=== PATIENT | male | born 1935 | race Caucasian/White ===

== ENCOUNTER → 2016-06-15 | Outpatient (CLI) | payer MEDICARE, BC | LOC: OD 11:25 | PROVIDERS: ATTEND Internal Medicine Nephrology | DX: E87.5 Hyperkalemia (principal) | CPT/HCPCS: 36415; 84132 ==

== ENCOUNTER → 2016-07-21 | Outpatient (CLI) | payer MEDICARE, BC ==
[2016-07-21 13:44] LABS: ANION GAP 15 (5-19); BLOOD UREA NITROGEN 22 mg/dL (7-20); CALCIUM 9.4 mg/dL (8.4-10.2); CARBON DIOXIDE 29 mmol/L (22-30); CHLORIDE 105 mmol/L (98-107); CREATININE RESULT 1.91 mg/dL (0.52-1.25); GLUCOSE 130 mg/dL (75-110); MAGNESIUM 2.2 mg/dL (1.6-2.3); SODIUM 148.5 mmol/L (137-145)
== END ==
LOC: OD 12:13
PROVIDERS: ATTEND Internal Medicine Nephrology
DX: I12.9 Hypertensive chronic kidney disease with stage 1 through stage 4 chronic kidney disease, or unspecified chronic kidney disease (principal); N18.3 Chronic kidney disease, stage 3 (moderate); E87.5 Hyperkalemia
CPT/HCPCS: 36415; 80048; 83735

== ENCOUNTER → 2016-08-26 | Outpatient (CLI) | payer MEDICARE, BC ==
[2016-08-26 15:21] LABS: HEMATOCRIT 34.3 % (37.9-51.0); HEMOGLOBIN 11.1 g/dL (13.5-17.0); MEAN CORPUSCULAR HEMOGLOBIN 27.7 pg (27.0-33.4); MEAN CORPUSCULAR HGB CONC 32.3 g/dL (32.0-36.0); MEAN CORPUSCULAR VOLUME 86 fl (80-97); RED BLOOD COUNT 3.99 10^6/uL (4.35-5.55); RED CELL DISTRIBUTION WIDTH 16.1 % (11.5-14.0); WHITE BLOOD COUNT 6.7 10^3/uL (4.0-10.5)
[2016-08-26 15:21] LABS: APPEARANCE,URINE CLEAR; BILIRUBIN,URINE NEGATIVE (NEGATIVE); GLUCOSE, URINE NEGATIVE (NEGATIVE); KETONES,URINE NEGATIVE (NEGATIVE); LEUKOCYTE ESTERASE,URINE NEGATIVE (NEGATIVE); NITRITE,URINE NEGATIVE (NEGATIVE); PROTEIN,URINE 30 mg/dL (NEGATIVE); URINE SPECIFIC GRAVITY 1.015; UROBILINOGEN,URINE NEGATIVE mg/dL (<2.0)
[2016-08-26 15:35] LABS: ANION GAP 9 (5-19); BLOOD UREA NITROGEN 20 mg/dL (7-20); CALCIUM 8.9 mg/dL (8.4-10.2); CARBON DIOXIDE 30 mmol/L (22-30); CHLORIDE 105 mmol/L (98-107); CREATININE RESULT 1.67 mg/dL (0.52-1.25); GLUCOSE 105 mg/dL (75-110); MAGNESIUM 2.3 mg/dL (1.6-2.3); POTASSIUM 3.3 mmol/L (3.6-5.0); SODIUM 143.8 mmol/L (137-145)
== END ==
LOC: OD 14:18
PROVIDERS: ATTEND Internal Medicine Nephrology
DX: N18.3 Chronic kidney disease, stage 3 (moderate) (principal); E87.5 Hyperkalemia; D64.9 Anemia, unspecified; R31.9 Hematuria, unspecified
CPT/HCPCS: 36415; 80048; 81001; 82728; 83540; 83550; 83735; 85027

== ENCOUNTER → 2016-10-02 | Outpatient (CLI) | payer MEDICARE, BC ==
[2016-10-02 13:00] LABS: HEMATOCRIT 34.3 % (37.9-51.0); HEMOGLOBIN 10.9 g/dL (13.5-17.0); HGB HCT DIFFERENCE -1.6; MEAN CORPUSCULAR HEMOGLOBIN 27.1 pg (27.0-33.4); MEAN CORPUSCULAR HGB CONC 31.9 g/dL (32.0-36.0); MEAN CORPUSCULAR VOLUME 85 fl (80-97); RED BLOOD COUNT 4.03 10^6/uL (4.35-5.55); WHITE BLOOD COUNT 6.6 10^3/uL (4.0-10.5)
[2016-10-02 13:26] LABS: ANION GAP 12 (5-19); BLOOD UREA NITROGEN 21 mg/dL (7-20); CALCIUM 8.8 mg/dL (8.4-10.2); CARBON DIOXIDE 27 mmol/L (22-30); CHLORIDE 106 mmol/L (98-107); CREATININE RESULT 1.74 mg/dL (0.52-1.25); GLUCOSE 137 mg/dL (75-110); MAGNESIUM 2.2 mg/dL (1.6-2.3); POTASSIUM 3.9 mmol/L (3.6-5.0)
== END ==
LOC: OD 12:07
PROVIDERS: ATTEND Internal Medicine Nephrology
DX: I12.9 Hypertensive chronic kidney disease with stage 1 through stage 4 chronic kidney disease, or unspecified chronic kidney disease (principal); N18.3 Chronic kidney disease, stage 3 (moderate); E87.6 Hypokalemia
CPT/HCPCS: 36415; 80048; 83735; 85027

== ENCOUNTER → 2016-12-10 | Outpatient (CLI) | payer MEDICARE, BC ==
[2016-12-10 13:53] LABS: HEMATOCRIT 35.2 % (37.9-51.0); HEMOGLOBIN 11.3 g/dL (13.5-17.0); HGB HCT DIFFERENCE -1.3; MEAN CORPUSCULAR HEMOGLOBIN 27.4 pg (27.0-33.4); MEAN CORPUSCULAR HGB CONC 32.2 g/dL (32.0-36.0); MEAN CORPUSCULAR VOLUME 85 fl (80-97); RED BLOOD COUNT 4.14 10^6/uL (4.35-5.55); RED CELL DISTRIBUTION WIDTH 19.1 % (11.5-14.0); WHITE BLOOD COUNT 8.3 10^3/uL (4.0-10.5)
[2016-12-10 14:12] LABS: ANION GAP 14 (5-19); BLOOD UREA NITROGEN 22 mg/dL (7-20); CALCIUM 9.7 mg/dL (8.4-10.2); CARBON DIOXIDE 28 mmol/L (22-30); CHLORIDE 103 mmol/L (98-107); CREATININE RESULT 1.89 mg/dL (0.52-1.25); GLUCOSE 123 mg/dL (75-110); POTASSIUM 3.1 mmol/L (3.6-5.0); SODIUM 145.4 mmol/L (137-145)
== END ==
LOC: OD 12:30
PROVIDERS: ATTEND Internal Medicine Nephrology
DX: N18.3 Chronic kidney disease, stage 3 (moderate) (principal); D64.9 Anemia, unspecified; I50.9 Heart failure, unspecified
CPT/HCPCS: 36415; 80048; 82728; 83540; 83550; 85027

== ENCOUNTER 2017-11-10 21:24 | Inpatient (IN) | payer MEDICARE, BC ==
[2017-11-10] MEDS ORDERED: LEVOFLOXACIN 750 MG/D5W RTU 150 ML IV ONE (21:46)
--- NOTE | 2017-11-10 22:15 | ER Document Report ---
ED General - General Chief Complaint: Fall Stated Complaint: FALL Time Seen by Provider: 11/10/17 21:38 TRAVEL OUTSIDE OF THE [place] IN LAST 30 DAYS: No - HPI Notes: 82-year-old male presents by EMS after a fall at home. He lives at home with his with dementia. There is some report that he was trying to get from his bed to a chair when he slipped and fell. He does not remember all events surrounding this episode and is unsure if this was a syncopal event. He does not think he hit his head. It is unclear how long he was on the floor. Daughter states it may have been at least an hour. He was seen by his primary care physician 1 week ago and his Lasix was increased from 2 pills to 3 pills twice a day. 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 He has a history of atrial fibrillation, congestive heart failure and stents. He is on home oxygen and was found to have sats of 78% on room air when EMS found him. He is now 95% on his normal 4 L. Daughter concerned that may have a urinary tract infection. - Related Data Allergies/Adverse Reactions: No Known Allergies Allergy (Verified 11/10/17 21:51) Past Medical History - Social History Smoking Status: Never Smoker Chew tobacco use (# tins/day): No Frequency of alcohol use: None Drug Abuse: None Family History: Reviewed & Not Pertinent Patient has suicidal ideation: No Patient has homicidal ideation: No - Past Medical History Cardiac Medical History: Reports: Hx Atrial Fibrillation, Hx Congestive Heart Failure, Hx Coronary Artery Disease Renal/ Medical History: Denies: Hx Peritoneal Dialysis Past Surgical History: Reports: Hx Cardiac Surgery - stents about 7yrs ago Review of Systems - Review of Systems Notes: Constitutional: Negative for fever. Positive for fatigue HENT: Negative for sore throat. Eyes: Negative for visual changes. Cardiovascular: Negative for chest pain. Respiratory: Negative for shortness of breath. Gastrointestinal: Negative for abdominal pain, vomiting or diarrhea. Genitourinary: Negative for dysuria. Musculoskeletal: Negative for back pain. Skin: Negative for rash. Neurological: Negative for headaches, weakness or numbness. 10 point ROS negative except as marked above and in HPI. Physical Exam - Vital signs Vitals: Temp Pulse Resp BP Pulse Ox 100.0 F 79 22 H 133/64 H 98 11/10/17 21:35 11/10/17 21:35 11/10/17 21:35 11/10/17 21:35 11/10/17 21:35 - Notes Notes: PHYSICAL EXAMINATION: GENERAL: Well-appearing, well-nourished and in no acute distress. Frail HEAD: Atraumatic, normocephalic. No facial injuries. EYES: Pupils equal round and reactive to light, extraocular movements intact, conjunctiva are normal. ENT: nares patent, oropharynx clear without exudates. Moist mucous membranes. NECK: Normal range of motion, supple without lymphadenopathy. No neck tenderness LUNGS: Breath sounds clear to auscultation bilaterally and equal. No wheezes rales or rhonchi. HEART: Regular rate and rhythm, no chest wall tenderness. 4 out of 5 systolic murmur ABDOMEN: Soft, nontender, normoactive bowel sounds. No guarding, no rebound. No masses appreciated. EXTREMITIES: Normal range of motion, no pitting or edema. No cyanosis. NEUROLOGICAL: Cranial nerves grossly intact. Normal speech, normal gait. Normal sensory and motor exams. PSYCH: Normal mood, normal affect. SKIN: Warm, Dry, normal turgor, no rashes or lesions noted. Course - Re-evaluation Re-evalutation: 11/10/17 22:14 We will check EKG and labs as this is unclear if this was a syncopal event or simple fall. Will also evaluate urine. 11/10/17 23:59 Patient has slightly increased BUN and creatinine from baseline which is likely related to new increased dose of Lasix. He has mild leukocytosis. Urine pending. Patient requesting chest x-ray to evaluate for "fluid around my heart. " Chest x-ray and CT pending. Discussed with Dr. Pearce at shift change for follow-up of these tests. - Vital Signs Vital signs: Temp Pulse Resp BP Pulse Ox 100.0 F 73 24 H 150/58 H 94 11/10/17 21:48 11/10/17 21:48 11/10/17 23:18 11/10/17 23:18 11/10/17 23:18 - Laboratory Result Diagrams: 11/10/17 23:17 11/10/17 23:17 Laboratory results interpreted by me: 11/10/17 11/10/17 23:17 23:17 WBC 12.9 H RBC 3.69 L Hgb 10.2 L Hct 30.8 L RDW 18.5 H Plt Count 129 L Seg Neuts % (Manual) 84 H Band Neutrophils % 1 L Lymphocytes % (Manual) 8 L Abs Neuts (Manual) 11.0 H Potassium 3.2 L BUN 28 H Creatinine 2.10 H Est GFR ( Amer) 37 L Est GFR (Non-Af Amer) 30 L Glucose 131 H ALT 17 L - Transfer of Care Care transferred to following provider: norbert
[2017-11-10 23:31] LABS: HEMATOCRIT 30.8 % (37.9-51.0); HEMOGLOBIN 10.2 g/dL (13.5-17.0); MEAN CORPUSCULAR HEMOGLOBIN 27.6 pg (27.0-33.4); MEAN CORPUSCULAR VOLUME 84 fl (80-97); PLATELET COUNT 129 10^3/uL (150-450); RED BLOOD COUNT 3.69 10^6/uL (4.35-5.55); RED CELL DISTRIBUTION WIDTH 18.5 % (11.5-14.0); WHITE BLOOD COUNT 12.9 10^3/uL (4.0-10.5)
[2017-11-10 23:45] LABS: ABSOLUTE MONOCYTES # (MANUAL) 0.9 10^3/uL (0.1-1.4); ALANINE AMINOTRANSFERASE 17 U/L (21-72); ALBUMIN 3.5 g/dL (3.5-5.0); ALKALINE PHOSPHATASE 68 U/L (38-126); ANION GAP 13 (5-19); ASPARTATE AMINO TRANSFERASE 18 U/L (17-59); BAND NEUTROPHILS % (MANUAL) 1 % (3-5); BASOPHILS % (MANUAL) 0 % (0-2); BILIRUBIN,DIRECT 0.3 mg/dL (0.0-0.4); BILIRUBIN,TOTAL 0.9 mg/dL (0.2-1.3); BLOOD UREA NITROGEN 28 mg/dL (7-20); CALCIUM 9.1 mg/dL (8.4-10.2); CARBON DIOXIDE 30 mmol/L (22-30); CHLORIDE 101 mmol/L (98-107); CREATINE KINASE 88 U/L (55-170); EOSINOPHILS % (MANUAL) 0 % (0-6); GLUCOSE 131 mg/dL (75-110); LYMPHOCYTES % (MANUAL) 8 % (13-45); MONOCYTES % (MANUAL) 7 % (3-13); POTASSIUM 3.2 mmol/L (3.6-5.0); SEGMENTED NEUTROPHILS % (MAN) 84 % (42-78); TOTAL CELLS COUNTED 100; TOTAL PROTEIN 6.7 g/dL (6.3-8.2)
[2017-11-10 23:48] LABS: ANISOCYTOSIS 2+; HYPOCHROMASIA 1+; OVALOCYTES 2+; POIKILOCYTOSIS 1+; SCHISTOCYTES SLIGHT; TARGET CELLS SLIGHT
[2017-11-10 23:49] LABS: PLATELET COMMENT DECREASED
[2017-11-10 23:56] LABS: APPEARANCE,URINE CLEAR; BILIRUBIN,URINE NEGATIVE (NEGATIVE); COLOR,URINE YELLOW; GLUCOSE, URINE NEGATIVE (NEGATIVE); KETONES,URINE NEGATIVE (NEGATIVE); LEUKOCYTE ESTERASE,URINE NEGATIVE (NEGATIVE); NITRITE,URINE NEGATIVE (NEGATIVE); PROTEIN,URINE 30 mg/dL (NEGATIVE); URINE SPECIFIC GRAVITY 1.011; UROBILINOGEN,URINE NEGATIVE mg/dL (<2.0)
[2017-11-11] MEDS ORDERED: ACETAMINOPHEN 325 MG TABLET PO ONE
--- NOTE | 2017-11-11 01:28 | RADIOLOGY REPORT (SQ) ---
EXAM DESCRIPTION: CT HEAD WITHOUT IV CONTRAST COMPLETED DATE/TME: 11/10/2017 22:10 CLINICAL HISTORY: 82 years, Male, fall COMPARISON: 12/15/2010 TECHNIQUE: Axial CT images of the brain were obtained without contrast. Sagittal and coronal reformats were performed. DLP 1111 Images stored on PACS. All CT scanners at this facility use dose modulation, iterative reconstruction, and/or weight based dosing when appropriate to reduce radiation dose to as low as reasonably achievable (ALARA). [facility]: Dose Right [facility]: CareDose [facility]: Dose Right [facility]: Teradose 4D [facility]: [employer] LIMITATIONS: None. FINDINGS: There is no acute infarct, hemorrhage, mass, edema, hydrocephalus, or extra-axial fluid collection. There is diffuse cerebral atrophy with mild to moderate periventricular and deep white matter chronic microvascular changes. Fluid is noted within the bilateral mastoid air cells. The paranasal sinuses are clear. There is no acute fracture. IMPRESSION: No acute intracranial abnormality. Bilateral mastoid effusions. TECHNICAL DOCUMENTATION: Quality ID # 436: Final reports with documentation of one or more dose reduction techniques (e.g., Automated exposure control, adjustment of the mA and/or kV according to patient size, use of iterative reconstruction technique) 2010 [employer]- All Rights Reserved
--- NOTE | 2017-11-11 02:08 | RADIOLOGY REPORT (SQ) ---
Chest 2 view on 11/11/2017 at 1:58 AM CLINICAL INDICATION: Cough COMPARISON: 11/12/2014 FINDINGS: Cardiomegaly is noted. Vascular calcification is noted in the aorta. Mild increased interstitial opacities may be chronic in nature versus mild edema. Hilar and mediastinal contours are within normal limits. No acute bony abnormality is noted. Old right rib fractures are noted. IMPRESSION: Cardiomegaly with mild increased interstitial opacities that may be chronic in nature versus mild edema.
[2017-11-11] MEDS ORDERED: POTASSIUM CHLORIDE 10 MEQ CAPSULE.ER PO ONE (02:52)
[2017-11-11] MEDS ORDERED: LEVOFLOXACIN 750 MG/D5W RTU 750 MG/150 ML RTUPB IV ONE (03:00)
[2017-11-11] MEDS ORDERED: ACETAMINOPHEN 325 MG TABLET PO PRN (03:03)
[2017-11-11] MEDS ORDERED: IPRATROPIUM/ALBUTEROL 0.5-2.5 MG/3 ML AMPUL NEB PRN (03:03)
[2017-11-11] MEDS ORDERED: NORMAL SALINE 1000 ML 1,000 ML IV PRN (03:06)
[2017-11-11] MEDS ORDERED: AZITHROMYCIN INJ 500 MG VIAL IV PRN (03:14)
[2017-11-11] MEDS ORDERED: CEFTRIAXONE INJ 1000 MG VIAL IV PRN (03:14)
[2017-11-11] MEDS ORDERED: AZITHROMYCIN 500 MG in DEXTROSE 5%-WATER 250 ML IV SCH (04:00)
[2017-11-11] MEDS ORDERED: CEFTRIAXONE 1 GM/D5W RTU 1 GM/50 ML RTUPB IV SCH (04:00)
[2017-11-11] MEDS ORDERED: CHLORPHENIRAMINE MALEATE 4 MG TABLET PO ONE (04:05)
[2017-11-11] MEDS: HEPARIN SOD (PORCINE) 5,000 UNIT/ML 1 ML SYRINGE SUBCUT SCH ×2 (05:05→14:51)
[2017-11-11] MEDS ORDERED: CHLORPHENIRAMINE MALEATE 4 MG TABLET ONE (05:24)
--- NOTE | 2017-11-11 06:58 | PDOC H&P ---
History of Present Illness Admission Date/PCP: 11/11/17 03:21 Patient complains of: Fever and cough History of Present Illness: ESTELA CRUZ is a 82 year old male with a past medical history of congestive heart failure, oxygen dependence, CKD 3 and hypertension. Patient presents with 48 hours of shortness of breath and cough preceded by several days of rhinorrhea. In the emergency room is found to have a fever of 101.0 and leukocytosis. He started on empiric antibiotics and referred to the hospitalist for admission. Patient denies chest pain nausea vomiting diarrhea. He denies recent antibiotic use. Past Medical History Cardiac Medical History: Reports: Atrial Fibrillation, Congestive Heart Failure , Coronary Artery Disease Pulmonary Medical History: Reports: Bronchitis Social History Information Source: Patient Lives with: Alone Smoking Status: Never Smoker Frequency of Alcohol Use: None Drugs: None - Advance Directive Resuscitation Status: Full Code Family History Family History: COPD Parental Family History Reviewed: Yes Children Family History Reviewed: Yes Sibling(s) Family History Reviewed.: Yes Medication/Allergy Allergies/Adverse Reactions: No Known Allergies Allergy (Verified 11/10/17 21:51) Review of Systems Constitutional: ABSENT: chills, fever(s), headache(s), weight gain, weight loss Eyes: ABSENT: visual disturbances Ears: ABSENT: hearing changes Cardiovascular: ABSENT: chest pain, dyspnea on exertion, edema, orthropnea, palpitations Respiratory: ABSENT: cough, hemoptysis Gastrointestinal: ABSENT: abdominal pain, constipation, diarrhea, hematemesis, hematochezia, nausea, vomiting Genitourinary: ABSENT: dysuria, hematuria Musculoskeletal: ABSENT: joint swelling Integumentary: ABSENT: rash, wounds Neurological: ABSENT: abnormal gait, abnormal speech, confusion, dizziness, focal weakness, syncope Psychiatric: ABSENT: anxiety, depression, homidical ideation, suicidal ideation Endocrine: ABSENT: cold intolerance, heat intolerance, polydipsia, polyuria Hematologic/Lymphatic: ABSENT: easy bleeding, easy bruising Physical Exam Vital Signs: Temp Pulse Resp BP Pulse Ox 97.5 F 73 20 140/57 H 97 11/11/17 05:01 11/10/17 21:48 11/11/17 05:01 11/11/17 05:01 11/11/17 05:01 Intake & Output 11/09/17 11/10/17 11/11/17 11:59 11:59 11:59 Intake Total 150 Balance 150 General appearance: PRESENT: cooperative, mild distress. ABSENT: disheveled, hard of hearing Head exam: PRESENT: atraumatic, normocephalic Eye exam: PRESENT: conjunctiva pink, EOMI, PERRLA. ABSENT: scleral icterus Ear exam: PRESENT: normal external ear exam Mouth exam: PRESENT: moist, tongue midline Neck exam: ABSENT: carotid bruit, JVD, lymphadenopathy, thyromegaly Respiratory exam: PRESENT: accessory muscle use, crackles, rales, rhonchi, symmetrical, tachypnea Cardiovascular exam: PRESENT: RRR. ABSENT: diastolic murmur, rubs, systolic murmur Pulses: PRESENT: normal dorsalis pedis pul Vascular exam: PRESENT: normal capillary refill GI/Abdominal exam: PRESENT: normal bowel sounds, soft. ABSENT: distended, guarding, mass, organolmegaly, rebound, tenderness Rectal exam: PRESENT: deferred Extremities exam: PRESENT: full ROM. ABSENT: calf tenderness, clubbing, pedal edema Neurological exam: PRESENT: alert, awake, oriented to person, oriented to place , oriented to time, oriented to situation, CN II-XII grossly intact. ABSENT: motor sensory deficit Psychiatric exam: PRESENT: appropriate affect, normal mood. ABSENT: homicidal ideation, suicidal ideation Skin exam: PRESENT: dry, intact, warm. ABSENT: cyanosis, rash Results Impressions: Head CT 11/10/17 22:10 IMPRESSION: No acute intracranial abnormality. Bilateral mastoid effusions. TECHNICAL DOCUMENTATION: Quality ID # 436: Final reports with documentation of one or more dose reduction techniques (e.g., Automated exposure control, adjustment of the mA and/or kV according to patient size, use of iterative reconstruction technique) 2010 [employer]- All Rights Reserved Chest X-Ray 11/10/17 23:58 IMPRESSION: Cardiomegaly with mild increased interstitial opacities that may be chronic in nature versus mild edema. Assessment & Plan - Diagnosis (1) Pneumonia Qualifiers: Pneumonia type: due to unspecified organism Laterality: unspecified laterality Lung location: unspecified part of lung Qualified Code(s): J18.9 - Pneumonia, unspecified organism Is this a current diagnosis for this admission?: Yes Plan: Secondary to sinusitis, pneumonia care set. Follow-up blood culture and CBC (2) Acute sinusitis Is this a current diagnosis for this admission?: Yes Plan: Flonase, empiric antibiotic, follow-up CBC consider CT head (3) Congestive heart failure Is this a current diagnosis for this admission?: Yes Plan: Appears compensated, possibly dry, hold diuretic (4) Chronic kidney disease Is this a current diagnosis for this admission?: Yes Plan: Somewhat prerenal versus baseline. Avoid nephrotoxic meds and doses reevaluate chemistry - Time Time Spent: 50 to 70 Minutes - Inpatient Certification Medical Necessity: Need Close Monitoring Due to Risk of Patient Decompensation
[2017-11-11 07:36] LABS: ANION GAP 13 (5-19); BLOOD UREA NITROGEN 25 mg/dL (7-20); CALCIUM 8.6 mg/dL (8.4-10.2); CARBON DIOXIDE 27 mmol/L (22-30); CHLORIDE 105 mmol/L (98-107); GLUCOSE 102 mg/dL (75-110); POTASSIUM 3.5 mmol/L (3.6-5.0); SODIUM 145.1 mmol/L (137-145)
--- NOTE | 2017-11-11 07:41 | EKG REPORT ---
SEVERITY:- ABNORMAL ECG - ATRIAL FIBRILLATION RIGHT BUNDLE BRANCH BLOCK INFERIOR INFARCT, AGE INDETERMINATE : Confirmed by: Alex Grider MD 11-Nov-2017 07:40:49
[2017-11-11] MEDS: IPRATROPIUM/ALBUTEROL 0.5-2.5 MG/3 ML AMPUL NEB SCH ×3 (08:15→19:47)
[2017-11-11] MEDS: FLUTICASONE NASAL SPRAY 50 MCG/SPRY 120 SPRAY/16 GM NASL SCH ×2 (12:44→21:29)
[2017-11-11] MEDS: AZITHROMYCIN 500 MG in DEXTROSE 5%-WATER 250 ML IV SCH (17:48)
--- NOTE | 2017-11-11 20:16 | Progress Note ---
Provider Note Provider Note: Admitted overnight. Doing better already. Breathing better. Has history of enlarged prostate and was straight cathed for UA in the ED. Had hematuria afterwards. However urine is clearing out. No problem urinating. UA before the bleeding started negative, had only small amount of blood. Will continue to monitor patient. We will also continue his treatment. Follow-up culture results. Follow-up CBC and Chem-7 in a.m.
[2017-11-11] MEDS: CEFTRIAXONE SODIUM 1,000 MG in NORMAL SALINE 50 ML IV SCH (20:46)
[2017-11-12] MEDS: IPRATROPIUM/ALBUTEROL 0.5-2.5 MG/3 ML AMPUL NEB SCH ×4 (02:12→20:27)
[2017-11-12] MEDS ORDERED: LEVOFLOXACIN 750 MG/D5W RTU 750 MG/150 ML RTUPB IV SCH (03:00)
[2017-11-12 05:13] LABS: HEMATOCRIT 29.3 % (37.9-51.0); HEMOGLOBIN 9.6 g/dL (13.5-17.0); MEAN CORPUSCULAR HEMOGLOBIN 27.5 pg (27.0-33.4); MEAN CORPUSCULAR HGB CONC 32.8 g/dL (32.0-36.0); MEAN CORPUSCULAR VOLUME 84 fl (80-97); RED BLOOD COUNT 3.48 10^6/uL (4.35-5.55); RED CELL DISTRIBUTION WIDTH 18.8 % (11.5-14.0); WHITE BLOOD COUNT 6.8 10^3/uL (4.0-10.5)
[2017-11-12 05:32] LABS: ANION GAP 12 (5-19); BLOOD UREA NITROGEN 29 mg/dL (7-20); CALCIUM 8.4 mg/dL (8.4-10.2); CARBON DIOXIDE 26 mmol/L (22-30); CHLORIDE 108 mmol/L (98-107); GLUCOSE 91 mg/dL (75-110); POTASSIUM 3.2 mmol/L (3.6-5.0); SODIUM 145.9 mmol/L (137-145)
[2017-11-12 05:51] LABS: PLATELET COUNT 88 10^3/uL (150-450)
[2017-11-12] MEDS: FLUTICASONE NASAL SPRAY 50 MCG/SPRY 120 SPRAY/16 GM NASL SCH ×2 (11:05→22:26)
[2017-11-12] MEDS: POTASSIUM CHLORIDE 10 MEQ CAPSULE.ER PO SCH ×2 (11:06→22:27)
[2017-11-12] MEDS: FINASTERIDE 5 MG TABLET PO SCH (11:06)
[2017-11-12] MEDS: METOPROLOL SUCCINATE 50 MG TAB.SR.24H PO SCH ×2 (11:06→22:27)
[2017-11-12] MEDS: FUROSEMIDE 40 MG TABLET PO SCH ×2 (11:06→18:47)
[2017-11-12] MEDS: DILTIAZEM HCL 240 MG CAPSULE.CR PO SCH (11:15)
[2017-11-12] MEDS ORDERED: POTASSIUM CHLORIDE 10 MEQ CAPSULE.ER PO ONE (14:10)
--- NOTE | 2017-11-12 14:10 | PDOC PROGRESS REPORT ---
Subjective Progress Note for:: 11/12/17 Subjective:: 82-year-old male with history of CHF, O2 dependent, presented with shortness of breath, cough, rhinorrhea, fever of 101. Patient was admitted for possible pneumonia and acute sinusitis. Of note is that the patient had UA done with straight cath. He has history of BPH. He had episode of hematuria afterwards but that has improved. Denies flank pain. UA prior to the possible injury only with minimal blood. Coumadin which he takes for A. fib is currently on hold. He is doing better today with regards to his cough and shortness of breath. Denies chest pain or palpitations. No more fever or chills. Reason For Visit: CHF, PNEUMONIA, ORTHOSTASIS Physical Exam Vital Signs: Temp Pulse Resp BP Pulse Ox 98.4 F 105 H 16 156/64 H 90 L 11/12/17 11:03 11/12/17 13:37 11/12/17 13:37 11/12/17 11:03 11/12/17 11:03 Intake & Output 11/11/17 11/12/17 11/13/17 06:59 06:59 06:59 Intake Total 150 1716 Output Total 425 Balance 150 1291 Weight 79.4 kg GENERAL: Well-developed, no acute distress HEENT: Normocephalic/atraumatic NECK supple, no JVD CARDIOVASCULAR: Irregularly irregular, normal S1-S2 LUNGS: CTA bilaterally ABDOMEN: Soft, NT, NL bowel sounds EXTREMITIES: No edema, clubbing, cyanosis NEUROLOGICAL: Alert, oriented x 3, nonfocal Results Laboratory Results: 11/12/17 04:13 11/12/17 04:13 11/12/17 11/12/17 04:13 04:13 WBC 6.8 RBC 3.48 L Hgb 9.6 L Hct 29.3 L MCV 84 MCH 27.5 MCHC 32.8 RDW 18.8 H Plt Count 88 L Sodium 145.9 H Potassium 3.2 L Chloride 108 H Carbon Dioxide 26 Anion Gap 12 BUN 29 H Creatinine 1.88 H Est GFR ( Amer) 42 L Est GFR (Non-Af Amer) 34 L Glucose 91 Calcium 8.4 Impressions: Head CT 11/10/17 22:10 IMPRESSION: No acute intracranial abnormality. Bilateral mastoid effusions. TECHNICAL DOCUMENTATION: Quality ID # 436: Final reports with documentation of one or more dose reduction techniques (e.g., Automated exposure control, adjustment of the mA and/or kV according to patient size, use of iterative reconstruction technique) 2010 [employer]- All Rights Reserved Chest X-Ray 11/10/17 23:58 IMPRESSION: Cardiomegaly with mild increased interstitial opacities that may be chronic in nature versus mild edema. Assessment & Plan - Diagnosis (1) Pneumonia Qualifiers: Pneumonia type: due to unspecified organism Laterality: unspecified laterality Lung location: unspecified part of lung Qualified Code(s): J18.9 - Pneumonia, unspecified organism Is this a current diagnosis for this admission?: Yes Plan: This is suspected. Blood cultures negative 24 hours. Continue Rocephin and Zithromax for now. Patient currently with no productive sputum. Continue nebulizers as needed. (2) Acute sinusitis Is this a current diagnosis for this admission?: Yes Plan: Flonase, empiric antibiotic. Continue to follow blood culture results. (3) Congestive heart failure Is this a current diagnosis for this admission?: Yes Plan: Appears compensated. Resume home Lasix. (4) Chronic kidney disease, stage 3 Is this a current diagnosis for this admission?: Yes Plan: Stable (5) Hematuria Is this a current diagnosis for this admission?: Yes Plan: Likely secondary to trauma from straight cath performed for UA in the setting of BPH. Improvement patient making urine. H&H stable. Please continue to monitor for hematuria and H&H. Coumadin currently on hold, which he takes for A. fib. Consider restarting if no more hematuria by a.m. Consider nephrology consult if worsening symptoms. (6) Hypokalemia Is this a current diagnosis for this admission?: Yes Plan: Potassium is 3.2 today. We will replete with KCl 40 M EQ p.o. 1 and follow-up Chem-7 in a.m.
[2017-11-12] MEDS: AZITHROMYCIN 500 MG in DEXTROSE 5%-WATER 250 ML IV SCH (18:47)
[2017-11-12] MEDS: CEFTRIAXONE SODIUM 1,000 MG in NORMAL SALINE 50 ML IV SCH (20:33)
[2017-11-12] MEDS ORDERED: LOVASTATIN 20 MG PO SCH (22:00)
[2017-11-12] MEDS: ATORVASTATIN CALCIUM 10 MG TABLET PO SCH (22:26)
[2017-11-13] MEDS: FUROSEMIDE 40 MG TABLET PO SCH ×3 (01:05→17:29)
[2017-11-13] MEDS: IPRATROPIUM/ALBUTEROL 0.5-2.5 MG/3 ML AMPUL NEB SCH ×4 (02:37→20:22)
[2017-11-13 05:47] LABS: HEMATOCRIT 30.1 % (37.9-51.0); HEMOGLOBIN 9.8 g/dL (13.5-17.0); MEAN CORPUSCULAR HEMOGLOBIN 27.7 pg (27.0-33.4); MEAN CORPUSCULAR HGB CONC 32.6 g/dL (32.0-36.0); MEAN CORPUSCULAR VOLUME 85 fl (80-97); PLATELET COUNT 113 10^3/uL (150-450); RED BLOOD COUNT 3.54 10^6/uL (4.35-5.55); WHITE BLOOD COUNT 7.6 10^3/uL (4.0-10.5)
[2017-11-13 06:07] LABS: ANION GAP 14 (5-19); BLOOD UREA NITROGEN 29 mg/dL (7-20); CALCIUM 8.5 mg/dL (8.4-10.2); CARBON DIOXIDE 24 mmol/L (22-30); CHLORIDE 108 mmol/L (98-107); GLUCOSE 95 mg/dL (75-110); POTASSIUM 3.8 mmol/L (3.6-5.0); SODIUM 145.7 mmol/L (137-145)
[2017-11-13] MEDS: FINASTERIDE 5 MG TABLET PO SCH (10:14)
[2017-11-13] MEDS: DILTIAZEM HCL 240 MG CAPSULE.CR PO SCH (10:14)
[2017-11-13] MEDS: FLUTICASONE NASAL SPRAY 50 MCG/SPRY 120 SPRAY/16 GM NASL SCH ×2 (10:14→22:33)
[2017-11-13] MEDS: POTASSIUM CHLORIDE 10 MEQ CAPSULE.ER PO SCH ×2 (10:15→22:35)
[2017-11-13] MEDS: METOPROLOL SUCCINATE 50 MG TAB.SR.24H PO SCH ×2 (10:15→22:35)
[2017-11-13] MEDS: AZITHROMYCIN 500 MG in DEXTROSE 5%-WATER 250 ML IV SCH (17:29)
--- NOTE | 2017-11-13 18:00 | PDOC PROGRESS REPORT ---
Subjective Progress Note for:: 11/13/17 Subjective:: Patient admitted with difficulty breathing and shortness of breath and fever. It appears that he was thought to be septic and started on IV antibiotics. He was noted to have hematuria which was thought to be due to catheterization. He is material appears to have resolved as of today. Reason For Visit: CHF, PNEUMONIA, ORTHOSTASIS Physical Exam Vital Signs: Temp Pulse Resp BP Pulse Ox 98.4 F 80 20 145/60 H 94 11/13/17 16:49 11/13/17 16:49 11/13/17 16:49 11/13/17 16:49 11/13/17 16:49 Intake & Output 11/12/17 11/13/17 11/14/17 06:59 06:59 06:59 Intake Total 1716 1366 947 Output Total 425 1460 475 Balance 1291 -94 472 Weight 79.4 kg 80.8 kg General appearance: PRESENT: no acute distress, well-developed, well-nourished Head exam: PRESENT: atraumatic, normocephalic Eye exam: PRESENT: conjunctiva pink, EOMI, PERRLA. ABSENT: scleral icterus Ear exam: PRESENT: normal external ear exam Mouth exam: PRESENT: moist, tongue midline Neck exam: ABSENT: carotid bruit, JVD, lymphadenopathy, thyromegaly Respiratory exam: PRESENT: clear to auscultation nigel. ABSENT: rales, rhonchi, wheezes Cardiovascular exam: PRESENT: RRR. ABSENT: diastolic murmur, rubs, systolic murmur Pulses: PRESENT: normal dorsalis pedis pul Vascular exam: PRESENT: normal capillary refill GI/Abdominal exam: PRESENT: normal bowel sounds, soft. ABSENT: distended, guarding, mass, organolmegaly, rebound, tenderness Rectal exam: PRESENT: deferred Extremities exam: PRESENT: full ROM. ABSENT: calf tenderness, clubbing, pedal edema Neurological exam: PRESENT: alert, awake, oriented to person, oriented to place , oriented to time, oriented to situation, CN II-XII grossly intact. ABSENT: motor sensory deficit Psychiatric exam: PRESENT: appropriate affect, normal mood. ABSENT: homicidal ideation, suicidal ideation Skin exam: PRESENT: dry, intact, warm. ABSENT: cyanosis, rash Results Laboratory Results: 11/13/17 05:06 11/13/17 05:06 11/13/17 11/13/17 05:06 05:06 WBC 7.6 RBC 3.54 L Hgb 9.8 L Hct 30.1 L MCV 85 MCH 27.7 MCHC 32.6 RDW 19.0 H Plt Count 113 L Sodium 145.7 H Potassium 3.8 Chloride 108 H Carbon Dioxide 24 Anion Gap 14 BUN 29 H Creatinine 1.76 H Est GFR ( Amer) 45 L Est GFR (Non-Af Amer) 37 L Glucose 95 Calcium 8.5 Impressions: Head CT 11/10/17 22:10 IMPRESSION: No acute intracranial abnormality. Bilateral mastoid effusions. TECHNICAL DOCUMENTATION: Quality ID # 436: Final reports with documentation of one or more dose reduction techniques (e.g., Automated exposure control, adjustment of the mA and/or kV according to patient size, use of iterative reconstruction technique) 2010 [employer]- All Rights Reserved Chest X-Ray 11/10/17 23:58 IMPRESSION: Cardiomegaly with mild increased interstitial opacities that may be chronic in nature versus mild edema. Assessment & Plan - Time Time Spent with patient: 15-24 minutes Medications reviewed and adjusted accordingly: Yes Anticipated discharge: Home Within: within 48 hours - Inpatient Certification Based on my medical assessment, after consideration of the patient's comorbidities, presenting symptoms, or acuity I expect that the services needed warrant INPATIENT care.: Yes Medical Necessity: Significant Comorbidiites Make Outpatient Treatment Too Risky , Need for IV Antibiotics - Plan Summary Plan Summary: 1. Pneumonia organism unknown. Patient is on Rocephin and Zithromax and he apparently is clinically improved. We will continue this for now 2. Acute sinusitis resolved 3. Hematuria patient is on Coumadin. Will check PT and INR and restart depending on levels 4. Chronic kidney disease stage III stable 5. Chronic compensated congestive heart failure. Continue Lasix 6. Hypokalemia possibly secondary to Lasix and kaliuresis. We will replace
[2017-11-13] MEDS: CEFTRIAXONE SODIUM 1,000 MG in NORMAL SALINE 50 ML IV SCH (20:44)
[2017-11-13] MEDS: ATORVASTATIN CALCIUM 10 MG TABLET PO SCH (22:34)
[2017-11-14] MEDS: IPRATROPIUM/ALBUTEROL 0.5-2.5 MG/3 ML AMPUL NEB SCH ×4 (02:23→21:06)
[2017-11-14] MEDS: FUROSEMIDE 40 MG TABLET PO SCH ×3 (03:13→18:17)
[2017-11-14 06:35] LABS: HEMATOCRIT 28.6 % (37.9-51.0); HEMOGLOBIN 9.6 g/dL (13.5-17.0); MEAN CORPUSCULAR HEMOGLOBIN 27.8 pg (27.0-33.4); MEAN CORPUSCULAR HGB CONC 33.6 g/dL (32.0-36.0); MEAN CORPUSCULAR VOLUME 83 fl (80-97); PLATELET COUNT 120 10^3/uL (150-450); RED BLOOD COUNT 3.46 10^6/uL (4.35-5.55); RED CELL DISTRIBUTION WIDTH 18.9 % (11.5-14.0); WHITE BLOOD COUNT 6.3 10^3/uL (4.0-10.5)
[2017-11-14 07:28] LABS: INTERNATIONAL RATION (INR) 1.29; PROTHROMBIN TIME 16.7 SEC (11.4-15.4)
[2017-11-14 07:39] LABS: ANION GAP 11 (5-19); BLOOD UREA NITROGEN 34 mg/dL (7-20); CALCIUM 8.7 mg/dL (8.4-10.2); CARBON DIOXIDE 28 mmol/L (22-30); CHLORIDE 106 mmol/L (98-107); GLUCOSE 97 mg/dL (75-110); POTASSIUM 3.4 mmol/L (3.6-5.0); SODIUM 145.4 mmol/L (137-145)
[2017-11-14] MEDS ORDERED: (PENDING PHARMACY ID) (Warfarin Sodium 6 MG) PO SCH (10:00)
[2017-11-14] MEDS: METOPROLOL SUCCINATE 50 MG TAB.SR.24H PO SCH ×2 (12:22→22:34)
[2017-11-14] MEDS: POTASSIUM CHLORIDE 10 MEQ CAPSULE.ER PO SCH ×3 (12:22→22:35)
[2017-11-14] MEDS: DILTIAZEM HCL 240 MG CAPSULE.CR PO SCH (12:26)
[2017-11-14] MEDS: FINASTERIDE 5 MG TABLET PO SCH (12:27)
[2017-11-14] MEDS: FLUTICASONE NASAL SPRAY 50 MCG/SPRY 120 SPRAY/16 GM NASL SCH ×2 (12:27→22:34)
--- NOTE | 2017-11-14 14:25 | PDOC PROGRESS REPORT ---
Subjective Progress Note for:: 11/14/17 Subjective:: Patient admitted with difficulty breathing and shortness of breath and fever. It appears that he was thought to be septic and started on IV antibiotics. He was noted to have hematuria which was thought to be due to catheterization. However he is on Coumadin Reason For Visit: CHF, PNEUMONIA, ORTHOSTASIS Physical Exam Vital Signs: Temp Pulse Resp BP Pulse Ox 97.4 F 78 13 126/62 H 96 11/14/17 11:09 11/14/17 11:09 11/14/17 11:09 11/14/17 11:09 11/14/17 11:09 Intake & Output 11/13/17 11/14/17 11/15/17 06:59 06:59 06:59 Intake Total 1366 1247 Output Total 1460 475 Balance -94 772 Weight 80.8 kg 79.2 kg General appearance: PRESENT: no acute distress, well-developed, well-nourished Head exam: PRESENT: atraumatic, normocephalic Neck exam: ABSENT: carotid bruit, JVD, lymphadenopathy, thyromegaly Respiratory exam: PRESENT: decreased breath sounds, unlabored. ABSENT: rales, rhonchi, tachypnea, wheezes Cardiovascular exam: PRESENT: RRR, +S1, +S2, systolic murmur. ABSENT: diastolic murmur, rubs GI/Abdominal exam: PRESENT: normal bowel sounds, soft. ABSENT: distended, guarding, mass, organolmegaly, rebound, tenderness Rectal exam: PRESENT: deferred Neurological exam: PRESENT: alert, awake, oriented to person, oriented to place , oriented to time, oriented to situation, CN II-XII grossly intact, other Psychiatric exam: PRESENT: appropriate affect Results Laboratory Results: 11/14/17 06:15 11/14/17 06:15 11/14/17 11/14/17 06:15 06:15 WBC 6.3 RBC 3.46 L Hgb 9.6 L Hct 28.6 L MCV 83 MCH 27.8 MCHC 33.6 RDW 18.9 H Plt Count 120 L Sodium 145.4 H Potassium 3.4 L Chloride 106 Carbon Dioxide 28 Anion Gap 11 BUN 34 H Creatinine 1.94 H Est GFR ( Amer) 40 L Est GFR (Non-Af Amer) 33 L Glucose 97 Calcium 8.7 Impressions: Head CT 08/15/18 22:10 IMPRESSION: No acute intracranial abnormality. Bilateral mastoid effusions. TECHNICAL DOCUMENTATION: Quality ID # 436: Final reports with documentation of one or more dose reduction techniques (e.g., Automated exposure control, adjustment of the mA and/or kV according to patient size, use of iterative reconstruction technique) 2010 [employer]- All Rights Reserved Chest X-Ray 11/10/17 23:58 IMPRESSION: Cardiomegaly with mild increased interstitial opacities that may be chronic in nature versus mild edema. Assessment & Plan - Time Time Spent with patient: 15-24 minutes Medications reviewed and adjusted accordingly: Yes Anticipated discharge: Acute Rehab Within: within 72 hours - Inpatient Certification Based on my medical assessment, after consideration of the patient's comorbidities, presenting symptoms, or acuity I expect that the services needed warrant INPATIENT care.: Yes Medical Necessity: Need Close Monitoring Due to Risk of Patient Decompensation, Need for IV Antibiotics - Plan Summary Plan Summary: 1. Pneumonia organism unknown. Patient is on Rocephin and Zithromax and he Continues to improve.. We will continue this for now 2. Acute sinusitis resolved 3. Hematuria Resolved. Will restart Coumadin as INR is subtherapeutic. Will not give any hepa 4. Chronic kidney disease stage III stable 5. Chronic compensated congestive heart failure. Continue Lasix 6. Hypokalemia possibly secondary to Lasix and kaliuresis. 7.Generalized debility and weakness plan is for rehab in [place] once stable
[2017-11-14 16:06] LABS: ANION GAP 13 (5-19); BLOOD UREA NITROGEN 34 mg/dL (7-20); CALCIUM 8.8 mg/dL (8.4-10.2); CARBON DIOXIDE 28 mmol/L (22-30); CHLORIDE 105 mmol/L (98-107); GLUCOSE 114 mg/dL (75-110); POTASSIUM 3.8 mmol/L (3.6-5.0); SODIUM 145.7 mmol/L (137-145)
[2017-11-14] MEDS: AZITHROMYCIN 500 MG in DEXTROSE 5%-WATER 250 ML IV SCH (18:11)
[2017-11-14] MEDS ORDERED: WARFARIN SODIUM 3 MG TABLET PO SCH (22:00)
[2017-11-14] MEDS: CEFTRIAXONE SODIUM 1,000 MG in NORMAL SALINE 50 ML IV SCH (22:34)
[2017-11-14] MEDS: ATORVASTATIN CALCIUM 10 MG TABLET PO SCH (22:36)
[2017-11-15] MEDS: IPRATROPIUM/ALBUTEROL 0.5-2.5 MG/3 ML AMPUL NEB SCH ×4 (02:48→19:38)
[2017-11-15 05:45] LABS: INTERNATIONAL RATION (INR) 1.25; PROTHROMBIN TIME 16.3 SEC (11.4-15.4)
[2017-11-15] MEDS: FUROSEMIDE 40 MG TABLET PO SCH ×2 (10:19→18:40)
[2017-11-15] MEDS: FLUTICASONE NASAL SPRAY 50 MCG/SPRY 120 SPRAY/16 GM NASL SCH ×2 (10:19→23:03)
[2017-11-15] MEDS: DILTIAZEM HCL 240 MG CAPSULE.CR PO SCH (10:20)
[2017-11-15] MEDS: FINASTERIDE 5 MG TABLET PO SCH (10:23)
[2017-11-15] MEDS: METOPROLOL SUCCINATE 50 MG TAB.SR.24H PO SCH ×2 (10:23→23:03)
[2017-11-15] MEDS: POTASSIUM CHLORIDE 10 MEQ CAPSULE.ER PO SCH ×2 (10:23→23:03)
[2017-11-15] MEDS ORDERED: WARFARIN SODIUM 3 MG TABLET PO SCH (17:21)
--- NOTE | 2017-11-15 17:29 | PDOC PROGRESS REPORT ---
Subjective Progress Note for:: 11/15/17 Subjective:: Patient complains of left-sided weakness which appears to be worse than usual. He was seen by physical therapy and they also concurred that his weakness seemed to be somewhat worse. There is no complaints of chest pain no headaches or slurred speech or any other pertinent symptoms. A CT scan of the brain has been ordered for further evaluation Reason For Visit: CHF, PNEUMONIA, ORTHOSTASIS Physical Exam Vital Signs: Temp Pulse Resp BP Pulse Ox 97.9 F 77 16 132/71 H 97 11/14/17 23:56 11/15/17 14:16 11/15/17 14:16 11/14/17 23:56 11/15/17 14:16 Intake & Output 11/14/17 11/15/17 11/16/17 06:59 06:59 06:59 Intake Total 1247 1321 Output Total 475 400 Balance 772 921 Weight 79.2 kg 79.5 kg General appearance: PRESENT: no acute distress, well-developed, well-nourished Head exam: PRESENT: atraumatic, normocephalic Eye exam: PRESENT: conjunctiva pink, PERRLA. ABSENT: scleral icterus Ear exam: PRESENT: normal external ear exam Mouth exam: PRESENT: moist, tongue midline Neck exam: ABSENT: carotid bruit, JVD, lymphadenopathy, thyromegaly Respiratory exam: PRESENT: clear to auscultation nigel. ABSENT: rales, rhonchi, wheezes Cardiovascular exam: PRESENT: RRR, +S1, +S2. ABSENT: diastolic murmur, rubs, systolic murmur Pulses: PRESENT: normal dorsalis pedis pul Vascular exam: PRESENT: normal capillary refill GI/Abdominal exam: PRESENT: normal bowel sounds, soft. ABSENT: distended, guarding, mass, organolmegaly, rebound, tenderness Rectal exam: PRESENT: deferred Extremities exam: PRESENT: full ROM. ABSENT: calf tenderness, clubbing, pedal edema, +1 edema, +2 edema Neurological exam: PRESENT: alert, awake, oriented to person, oriented to place , oriented to time, oriented to situation, CN II-XII grossly intact, motor sensory deficit - strength 3/5 L extremities Psychiatric exam: PRESENT: appropriate affect, normal mood. ABSENT: homicidal ideation, suicidal ideation Skin exam: PRESENT: dry, intact, rash - rosacea, warm. ABSENT: cyanosis Results Laboratory Results: 11/14/17 06:15 11/14/17 14:56 11/15/17 05:08 NT-Pro-B Natriuret Pep 7460 H Impressions: Head CT 11/10/17 22:10 IMPRESSION: No acute intracranial abnormality. Bilateral mastoid effusions. TECHNICAL DOCUMENTATION: Quality ID # 436: Final reports with documentation of one or more dose reduction techniques (e.g., Automated exposure control, adjustment of the mA and/or kV according to patient size, use of iterative reconstruction technique) 2010 [employer]- All Rights Reserved Chest X-Ray 11/10/17 23:58 IMPRESSION: Cardiomegaly with mild increased interstitial opacities that may be chronic in nature versus mild edema. Assessment & Plan - Time Time Spent with patient: 15-24 minutes Medications reviewed and adjusted accordingly: Yes Anticipated discharge: Acute Rehab Within: within 48 hours - Inpatient Certification Based on my medical assessment, after consideration of the patient's comorbidities, presenting symptoms, or acuity I expect that the services needed warrant INPATIENT care.: Yes Medical Necessity: Need For Continuous Telemetry Monitoring, Need for IV Antibiotics - Plan Summary Plan Summary: 1. Pneumonia organism unknown. Patient is on Rocephin and Zithromax this can be changed to oral antibiotics at discharge 2. Acute sinusitis resolved 3. Worsened left sided weakness. Will obtain a CT scan of the brain to rule out CVA 4. Chronic kidney disease stage III stable 5. Chronic compensated congestive heart failure. Continue Lasix I have no information as to patients cardiac history of ejection fraction. He did state that he has a chronic congestive heart failure. His BNP is also elevated at 7000 and patient is currently receiving Lasix. There has been no previous echo in this institution and patient is euvolemic. Will obtain a 2D D echo for further evaluation of his cardiac status 6. Hypokalemia possibly secondary to Lasix and kaliuresis. Replaced 7.Generalized debility and weakness plan is for rehab in [place] once stable #8 Hematuria Resolved. Adjust Coumadin as needed for a therapeutic INR
--- NOTE | 2017-11-15 18:24 | RADIOLOGY REPORT (SQ) ---
EXAM DESCRIPTION: CT HEAD WITHOUT COMPLETED DATE/TIME: 11/15/2017 5:59 pm REASON FOR STUDY: Left sided weakness COMPARISON: 11/11/2017 TECHNIQUE: Axial images acquired through the brain without intravenous contrast. Images reviewed wi th bone, brain and subdural windows. Additional sagittal and coronal reconstructions were generated. Images stored on PACS. All CT scanners at this facility use dose modulation, iterative reconstruction, and/or weight based d osing when appropriate to reduce radiation dose to as low as reasonably achievable (ALARA). [facility]: Dose Right [facility]: CareDose [facility]: Dose Right [facility]: Teradose 4D [facility]: Smart Guzu RADIATION DOSE: CT Rad equipment meets quality standard of care and radiation dose reduction techniq ues were employed. CTDIvol: 23.9 mGy. DLP: 506 mGy-cm. mGy. LIMITATIONS: None. FINDINGS: VENTRICLES: Normal size and contour. CEREBRUM: No masses. No hemorrhage. No midline shift. No evidence for acute infarction. Areas of l ow density in the white matter most likely chronic small vessel ischemic changes. CEREBELLUM: No masses. No hemorrhage. No alteration of density. No evidence for acute infarction. EXTRAAXIAL SPACES: No fluid collections. No masses. ORBITS AND GLOBE: No intra- or extraconal masses. Normal contour of globe without masses. CALVARIUM: No fracture. PARANASAL SINUSES: Fluid is present in the mastoids bilaterally. SOFT TISSUES: No mass or hematoma. OTHER: No other significant finding. IMPRESSION: 1. Mild chronic microvascular ischemia. No acute imaging findings in the brain. 2. There is fluid in the mastoid air cells. EVIDENCE OF ACUTE STROKE: NO. COMMENT: Quality ID # 436: Final reports with documentation of one or more dose reduction techniques (e.g., Automated exposure control, adjustment of the mA and/or kV according to patient size, use of iterative reconstruction technique) TECHNICAL DOCUMENTATION: JOB ID: [id number] [employer]- All Rights Reserved Reading location - IP/workstation name: [email or web address]
[2017-11-15] MEDS: AZITHROMYCIN 500 MG in DEXTROSE 5%-WATER 250 ML IV SCH (18:40)
[2017-11-15] MEDS: CEFTRIAXONE SODIUM 1,000 MG in NORMAL SALINE 50 ML IV SCH (20:51)
[2017-11-15] MEDS: ATORVASTATIN CALCIUM 10 MG TABLET PO SCH (23:03)
[2017-11-15] MEDS: WARFARIN SODIUM 5 MG TABLET PO SCH (23:04)
[2017-11-16] MEDS: IPRATROPIUM/ALBUTEROL 0.5-2.5 MG/3 ML AMPUL NEB SCH ×4 (01:47→19:44)
[2017-11-16 04:12] LABS: ABSOLUTE EOSINOPHILS # (AUTO) 0.2 10^3/uL (0.0-0.6); ABSOLUTE MONOCYTES (AUTO) 0.7 10^3/uL (0.1-1.4); ABSOLUTE NEUT (AUTO) 5.2 10^3/uL (1.7-8.2); BASOPHILS % (AUTO) 0.7 % (0-2); EOSINOPHILS % (AUTO) 2.3 % (0-6); HEMATOCRIT 29.9 % (37.9-51.0); HEMOGLOBIN 9.8 g/dL (13.5-17.0); LYMPHOCYTES % (AUTO) 14.1 % (13-45); MEAN CORPUSCULAR HEMOGLOBIN 27.6 pg (27.0-33.4); MEAN CORPUSCULAR HGB CONC 32.8 g/dL (32.0-36.0); MEAN CORPUSCULAR VOLUME 84 fl (80-97); MONOCYTES % (AUTO) 9.4 % (3-13); PLATELET COUNT 122 10^3/uL (150-450); RED BLOOD COUNT 3.56 10^6/uL (4.35-5.55); RED CELL DISTRIBUTION WIDTH 18.9 % (11.5-14.0); SEGMENTED NEUTROPHILS % (AUTO) 73.5 % (42-78); TOTAL CELLS COUNTED % (AUTO) 100 %; WHITE BLOOD COUNT 7.1 10^3/uL (4.0-10.5)
[2017-11-16 04:18] LABS: INTERNATIONAL RATION (INR) 1.22
[2017-11-16 04:36] LABS: ANION GAP 13 (5-19); BLOOD UREA NITROGEN 44 mg/dL (7-20); CALCIUM 8.8 mg/dL (8.4-10.2); CARBON DIOXIDE 26 mmol/L (22-30); CHLORIDE 106 mmol/L (98-107); GLUCOSE 101 mg/dL (75-110); SODIUM 145.1 mmol/L (137-145)
[2017-11-16] MEDS: FUROSEMIDE 40 MG TABLET PO SCH ×2 (10:45→19:00)
[2017-11-16] MEDS: FINASTERIDE 5 MG TABLET PO SCH (10:46)
[2017-11-16] MEDS: METOPROLOL SUCCINATE 50 MG TAB.SR.24H PO SCH (10:46)
[2017-11-16] MEDS: POTASSIUM CHLORIDE 10 MEQ CAPSULE.ER PO SCH (10:49)
[2017-11-16] MEDS: FLUTICASONE NASAL SPRAY 50 MCG/SPRY 120 SPRAY/16 GM NASL SCH ×2 (10:50→21:32)
[2017-11-16] MEDS: DILTIAZEM HCL 240 MG CAPSULE.CR PO SCH (10:50)
--- NOTE | 2017-11-16 15:46 | PDOC PROGRESS REPORT ---
Subjective Subjective:: Patient says he feels better today. There is no chest pain and no difficulty breathing. CT scan of the brain done reveals no acute findings. Echocardiogram done to assess his left ventricular function is still pending. Reason For Visit: CHF, PNEUMONIA, ORTHOSTASIS Physical Exam Vital Signs: Temp Pulse Resp BP Pulse Ox 97.6 F 71 18 138/64 H 99 11/16/17 12:00 11/16/17 13:36 11/16/17 13:36 11/16/17 12:00 11/16/17 13:36 Intake & Output 11/15/17 11/16/17 11/17/17 06:59 06:59 06:59 Intake Total 1321 800 Output Total 400 400 Balance 921 400 Weight 79.5 kg 81.6 kg General appearance: PRESENT: no acute distress, well-developed, well-nourished Head exam: PRESENT: atraumatic, normocephalic Eye exam: PRESENT: conjunctiva pink, EOMI, PERRLA. ABSENT: scleral icterus Ear exam: PRESENT: normal external ear exam Mouth exam: PRESENT: moist, tongue midline Neck exam: ABSENT: carotid bruit, JVD, lymphadenopathy, thyromegaly Respiratory exam: PRESENT: clear to auscultation nigel. ABSENT: rales, rhonchi, wheezes Cardiovascular exam: PRESENT: RRR. ABSENT: diastolic murmur, rubs, systolic murmur Pulses: PRESENT: normal dorsalis pedis pul Vascular exam: PRESENT: normal capillary refill GI/Abdominal exam: PRESENT: normal bowel sounds, soft. ABSENT: distended, guarding, mass, organolmegaly, rebound, tenderness Rectal exam: PRESENT: deferred Extremities exam: PRESENT: full ROM. ABSENT: calf tenderness, clubbing, pedal edema Neurological exam: PRESENT: alert, awake, oriented to person, oriented to place , oriented to time, oriented to situation, CN II-XII grossly intact, motor sensory deficit - 4/5 strength left lower extremity Psychiatric exam: PRESENT: appropriate affect, normal mood. ABSENT: homicidal ideation, suicidal ideation Skin exam: PRESENT: dry, intact, rash - Rosacea on face, warm. ABSENT: cyanosis Results Laboratory Results: 11/16/17 03:50 11/16/17 03:50 11/16/17 11/16/17 03:50 03:50 WBC 7.1 RBC 3.56 L Hgb 9.8 L Hct 29.9 L MCV 84 MCH 27.6 MCHC 32.8 RDW 18.9 H Plt Count 122 L Seg Neutrophils % 73.5 Lymphocytes % 14.1 Monocytes % 9.4 Eosinophils % 2.3 Basophils % 0.7 Absolute Neutrophils 5.2 Absolute Lymphocytes 1.0 Absolute Monocytes 0.7 Absolute Eosinophils 0.2 Absolute Basophils 0.0 Sodium 145.1 H Potassium 4.0 Chloride 106 Carbon Dioxide 26 Anion Gap 13 BUN 44 H Creatinine 1.98 H Est GFR ( Amer) 39 L Est GFR (Non-Af Amer) 32 L Glucose 101 Calcium 8.8 11/11/17 06:48 Blood Blood Culture - Final NO GROWTH IN 5 DAYS 11/11/17 03:34 Blood Blood Culture - Final NO GROWTH IN 5 DAYS 11/15/17 05:08 NT-Pro-B Natriuret Pep 7460 H Impressions: Chest X-Ray 11/10/17 23:58 IMPRESSION: Cardiomegaly with mild increased interstitial opacities that may be chronic in nature versus mild edema. Head CT 11/15/17 00:00 IMPRESSION: 1. Mild chronic microvascular ischemia. No acute imaging findings in the brain. 2. There is fluid in the mastoid air cells. EVIDENCE OF ACUTE STROKE: NO. Assessment & Plan - Time Time Spent with patient: 15-24 minutes Medications reviewed and adjusted accordingly: Yes Anticipated discharge: SNF Within: within 48 hours - Inpatient Certification Based on my medical assessment, after consideration of the patient's comorbidities, presenting symptoms, or acuity I expect that the services needed warrant INPATIENT care.: Yes Medical Necessity: Need Close Monitoring Due to Risk of Patient Decompensation, Risk of Complication if Not Cared For in Hospital - Plan Summary Plan Summary: 1. Pneumonia organism unknown. Patient is on Rocephin and Zithromax Day 6 2. Acute sinusitis resolved 3. CVA r/o 4. Chronic kidney disease stage III stable 5. Chronic compensated congestive heart failure. Continue Lasix F/u on echo result. Patient can likely be dc in am if improved 6. Hypokalemia possibly secondary to Lasix and kaliuresis. Replaced 7.Generalized debility and weakness plan is for rehab in [place] once stable likely in am #8 Hematuria Resolved. Adjust Coumadin as needed for a therapeutic INR. INR still low at 1.2
[2017-11-16] MEDS: AZITHROMYCIN 500 MG in DEXTROSE 5%-WATER 250 ML IV SCH (18:59)
[2017-11-16] MEDS: ATORVASTATIN CALCIUM 10 MG TABLET PO SCH (21:27)
[2017-11-16] MEDS: WARFARIN SODIUM 5 MG TABLET PO SCH (21:31)
[2017-11-16] MEDS: CEFTRIAXONE SODIUM 1,000 MG in NORMAL SALINE 50 ML IV SCH (21:32)
[2017-11-17] MEDS: POTASSIUM CHLORIDE 10 MEQ CAPSULE.ER PO SCH ×2 (00:01→10:55)
[2017-11-17] MEDS: METOPROLOL SUCCINATE 50 MG TAB.SR.24H PO SCH ×2 (00:01→10:56)
[2017-11-17] MEDS: IPRATROPIUM/ALBUTEROL 0.5-2.5 MG/3 ML AMPUL NEB SCH ×3 (01:17→13:25)
[2017-11-17 07:42] LABS: ABSOLUTE EOSINOPHILS # (AUTO) 0.1 10^3/uL (0.0-0.6); ABSOLUTE LYMPHOCYTES (AUTO) 0.8 10^3/uL (0.5-4.7); ABSOLUTE MONOCYTES (AUTO) 0.6 10^3/uL (0.1-1.4); ABSOLUTE NEUT (AUTO) 3.8 10^3/uL (1.7-8.2); BASOPHILS % (AUTO) 0.6 % (0-2); EOSINOPHILS % (AUTO) 2.8 % (0-6); HEMATOCRIT 28.3 % (37.9-51.0); HEMOGLOBIN 9.1 g/dL (13.5-17.0); MEAN CORPUSCULAR HGB CONC 32.1 g/dL (32.0-36.0); MEAN CORPUSCULAR VOLUME 84 fl (80-97); MONOCYTES % (AUTO) 10.7 % (3-13); PLATELET COUNT 125 10^3/uL (150-450); RED BLOOD COUNT 3.35 10^6/uL (4.35-5.55); RED CELL DISTRIBUTION WIDTH 18.7 % (11.5-14.0); SEGMENTED NEUTROPHILS % (AUTO) 70.9 % (42-78); TOTAL CELLS COUNTED % (AUTO) 100 %; WHITE BLOOD COUNT 5.4 10^3/uL (4.0-10.5)
--- NOTE | 2017-11-17 07:42 | PDOC DISCHARGE SUMMARY ---
General - Admit/Disc Date/PCP Admission Date/Primary Care Provider: 11/11/17 03:21 Discharge Date: 11/17/17 - Discharge Diagnosis (1) Anticoagulant long-term use Is this a current diagnosis for this admission?: Yes (2) Congestive heart failure Is this a current diagnosis for this admission?: Yes (3) Hematuria Is this a current diagnosis for this admission?: Yes (4) Hypokalemia Is this a current diagnosis for this admission?: Yes (5) Pneumonia Is this a current diagnosis for this admission?: Yes (6) Weakness Is this a current diagnosis for this admission?: Yes (7) Anemia Is this a current diagnosis for this admission?: Yes Summary: Chronic, stable (8) Chronic kidney disease, stage 3 Is this a current diagnosis for this admission?: Yes - Additional Information Resuscitation Status: Full Code Prescriptions: Cefuroxime Axetil [Ceftin 500 mg Tablet] 500 mg PO BID #10 tablet Home Medications: Diltiazem HCl [Cardizem Cd 240 mg Capsule.cr] 240 mg PO DAILY 11/11/17 Finasteride [Proscar 5 mg Tablet] 5 mg PO DAILY 11/11/17 Lovastatin [Altoprev] 20 mg PO DAILY 11/11/17 Metoprolol Succinate [Toprol Xl 50 mg Tab.sr] 50 mg PO BID 11/11/17 Potassium Chloride [K-Tab ER] 10 meq PO BID 11/11/17 Cefuroxime Axetil [Ceftin 500 mg Tablet] 500 mg PO BID #10 tablet 11/17/17 Fluticasone Propionate [Flonase Nasal [place] 50 Mcg/[place] 16 gm] 2 spray NASL Q12 spray.pump 11/17/17 Furosemide [Lasix 40 mg Tablet] 40 mg PO BID tablet 11/17/17 Ipratropium/Albuterol Sulfate [Duoneb 3 ml Ampul] 3 ml NEB [id number] PRN vial.neb 11/17/17 Ipratropium/Albuterol Sulfate [Duoneb 3 ml Ampul] 3 ml NEB RTQ6 vial.neb Warfarin Sodium [Coumadin 5 mg Tablet] 10 mg PO QHS tablet 11/17/17 History of Present Illness History of Present Illness: ESTELA CRUZ is a 82 year old male with a past medical history of congestive heart failure, oxygen dependence, CKD 3 and hypertension. Patient presents with 48 hours of shortness of breath and cough preceded by several days of rhinorrhea. In the emergency room is found to have a fever of 101.0 and leukocytosis. He started on empiric antibiotics and referred to the hospitalist for admission. Patient denies chest pain nausea vomiting diarrhea. He denies recent antibiotic use. Hospital Course Hospital Course: Patient was admitted with the and fever shortness of breath cough. He was thought to have pneumonia. He was clinically septic and was started on intravenous antibiotics which he has received throughout his hospital course. He developed hematuria and because patient was on Coumadin his Coumadin was held without resolution of the hematuria. Patient has gradually improved over the course of his hospital stay. He will complete a course of antibiotics with oral Ceftin. He has been restarted on his Coumadin but his INR is still subtherapeutic and so will suggest follow-up PT and INR and adjustment of his Coumadin as appropriate. Patient is been discharged on 10 mg of Coumadin daily although he was on 5 mg prior to admission. Although patient has a history of CHF further details are not available and echocardiogram done is still currently pending today. BMP was found to be elevated at about 7500 and admission and down with diuresis his BNP has decreased to 5500. His kidney function did worsen slightly as expected with the diuresis and I will suggest close monitoring of BNP and clinical fluid status. Patient was seen by physical therapy and he was found to be weak likely from his hospital stay. He did have some left-sided weakness but CT scan done revealed no evidence of acute CVA. At this time patient is hemodynamically medically stable and it is felt that he can be discharged for rehabilitation. Follow-up BMP, PT and INR all strongly suggested anemia Physical Exam Vital Signs: Temp Pulse Resp BP Pulse Ox 98.9 F 65 12 133/60 H 98 11/17/17 03:37 11/17/17 03:37 11/17/17 03:37 11/17/17 03:37 11/17/17 03:37 Intake & Output 11/16/17 11/17/17 11/18/17 06:59 06:59 06:59 Intake Total 800 835 Output Total 400 1625 Balance 400 -790 Weight 81.6 kg 81.4 kg General appearance: PRESENT: no acute distress, well-developed, well-nourished Head exam: PRESENT: atraumatic, normocephalic Eye exam: PRESENT: conjunctiva pink, EOMI, PERRLA. ABSENT: scleral icterus Ear exam: PRESENT: normal external ear exam Mouth exam: PRESENT: moist, tongue midline Neck exam: ABSENT: carotid bruit, JVD, lymphadenopathy, thyromegaly Respiratory exam: PRESENT: clear to auscultation nigel. ABSENT: rales, rhonchi, wheezes Cardiovascular exam: PRESENT: RRR. ABSENT: diastolic murmur, rubs, systolic murmur Pulses: PRESENT: normal dorsalis pedis pul Vascular exam: PRESENT: normal capillary refill GI/Abdominal exam: PRESENT: normal bowel sounds, soft. ABSENT: distended, guarding, mass, organolmegaly, rebound, tenderness Rectal exam: PRESENT: deferred Extremities exam: PRESENT: full ROM. ABSENT: calf tenderness, clubbing, pedal edema Neurological exam: PRESENT: alert, awake, oriented to person, oriented to place , oriented to time, oriented to situation, CN II-XII grossly intact, motor sensory deficit - strength 4/5 LLE Psychiatric exam: PRESENT: appropriate affect, normal mood. ABSENT: homicidal ideation, suicidal ideation Skin exam: PRESENT: dry, intact, rash - macular rashes on face, warm. ABSENT: cyanosis Results Laboratory Results: 11/11/17 06:48 Blood Blood Culture - Final NO GROWTH IN 5 DAYS 11/11/17 03:34 Blood Blood Culture - Final NO GROWTH IN 5 DAYS 11/15/17 05:08 NT-Pro-B Natriuret Pep 7460 H Impressions: Chest X-Ray 11/10/17 23:58 IMPRESSION: Cardiomegaly with mild increased interstitial opacities that may be chronic in nature versus mild edema. Head CT 11/15/17 00:00 IMPRESSION: 1. Mild chronic microvascular ischemia. No acute imaging findings in the brain. 2. There is fluid in the mastoid air cells. EVIDENCE OF ACUTE STROKE: NO. Qualifiers - * PATIENT BEING DISCHARGED WITH ANY OF THE FOLLOWING DIAGNOSIS: No Plan Time Spent: Greater than 30 Minutes
[2017-11-17 07:53] LABS: PROTHROMBIN TIME 20.8 SEC (11.4-15.4)
[2017-11-17 08:07] LABS: ANION GAP 13 (5-19); BLOOD UREA NITROGEN 40 mg/dL (7-20); CALCIUM 8.7 mg/dL (8.4-10.2); CARBON DIOXIDE 27 mmol/L (22-30); CHLORIDE 106 mmol/L (98-107); GLUCOSE 90 mg/dL (75-110); POTASSIUM 3.7 mmol/L (3.6-5.0); SODIUM 146.2 mmol/L (137-145)
[2017-11-17] MEDS: DILTIAZEM HCL 240 MG CAPSULE.CR PO SCH (10:56)
[2017-11-17] MEDS: FINASTERIDE 5 MG TABLET PO SCH (10:56)
[2017-11-17] MEDS: FUROSEMIDE 40 MG TABLET PO SCH (10:56)
[2017-11-17] MEDS: FLUTICASONE NASAL SPRAY 50 MCG/SPRY 120 SPRAY/16 GM NASL SCH (10:56)
[2017-11-17 16:38] VITALS: BP 143/66
--- NOTE | 2017-11-17 20:08 | XCELERA REPORT ---
[address] [address] Transthoracic Echocardiogram Report Name: ESTELA CRUZ Age: 82 yrs Gender: Male : 1935 Patient Status: Inpatient Patient Location: [address] [place] [address] Study Date: 11/16/2017 09:26 AM Procedure: A two-dimensional transthoracic echocardiogram with color flow Doppler was performed. The study was technically difficult with many images being suboptimal in quality. Reason For Study: CHF History: CHF. Ordering Physician: KARSTEN DANG Performed By: Janina Acharya Interpretation Summary The left ventricle is normal in size. Left ventricular systolic function is low normal. LVEF is 55%. Mild LVH. The left ventricle is normal in size. There is mild concentric left ventricular hypertrophy. LV EF is 50% Left ventricular systolic function is borderline reduced. There is borderline global hypokinesis of the left ventricle. There is no thrombus. The right ventricle is not well visualized secondary to technical limitations The right atrium is mildly dilated. The left atrium is moderately dilated. There is no evidence of mitral valve prolapse. There is no mitral valve stenosis. There is a moderate amount of mitral regurgitation There is no aortic valvular vegetation. There is mild aortic stenosis There is a peak gradient of 25 mm of Hg. There is a moderate amount of aortic regurgitation There is no tricuspid stenosis. There is a moderate to severe amount of tricuspid regurgitation There is moderate pulmonary hypertension by echo RSVP is equal to is 52 mm of Hg , with RA mean of 10. There is no pulmonic valvular stenosis. There is a mild to moderate amount of pulmonic regurgitation There are no echocardiographic or Doppler indications for cardiac tamponade Small pericardial effusion. MMode/2D Measurements & Calculations RVDd: 3.8 cm LVIDd: 7.4 cm FS: 14.9 % Ao root diam: 3.4 cm IVSd: 1.3 cm LVIDs: 6.3 cm EDV(Teich): 292.8 ml Ao root area: 9.0 cm2 LVPWd: 1.3 cm ESV(Teich): 203.2 ml EF(Teich): 30.6 % LVOT diam: 1.8 cm LVOT area: 2.5 cm2 Doppler Measurements & Calculations MV E max kelley: MV dec slope: Ao V2 max: AI max kelley: 127.8 cm/sec 216.9 cm/sec 384.0 cm/sec MV A max kelley: 489.5 cm/sec2 Ao max PG: AI max P.0 mmHg 42.4 cm/sec MV dec time: 25.0 mmHg AI dec slope: MV E/A: 3.0 0.26 sec Ao V2 mean: 204.8 cm/sec 204.7 cm/sec2 Ao mean PG: AI P1/2t: 549.3 msec 18.9 mmHg Ao V2 VTI: 56.9 cm CRISTO(I,D): 0.87 cm2 CRISTO(V,D): 1.2 cm2 LV V1 max PG: SV(LVOT): 49.3 ml PA V2 max: PI max kelley: 4.3 mmHg 84.5 cm/sec 200.8 cm/sec LV V1 mean PG: PA max PG: PI max P.1 mmHg 2.3 mmHg 2.9 mmHg PI dec slope: LV V1 max: 219.0 cm/sec2 103.3 cm/sec LV V1 mean: 71.8 cm/sec LV V1 VTI: 19.9 cm TR max kelley: 322.6 cm/sec TR max P.6 mmHg Left Ventricle The left ventricle is normal in size. There is mild concentric left ventricular hypertrophy. LV EF is 50%. Left ventricular systolic function is borderline reduced. LV diastolic function could not be adequately assessed. There is borderline global hypokinesis of the left ventricle. There is no thrombus. Right Ventricle The right ventricle is not well visualized secondary to technical limitations. Atria The right atrium is mildly dilated. The left atrium is moderately dilated. Mitral Valve There is no evidence of mitral valve prolapse. There is no vegetation seen on the mitral valve. There is no mitral valve stenosis. There is a moderate amount of mitral regurgitation. Aortic Valve There is no aortic valvular vegetation. There is mild aortic stenosis. There is a peak gradient of 25 mm of Hg. There is a moderate amount of aortic regurgitation. Tricuspid Valve There is no tricuspid stenosis. There is a moderate to severe amount of tricuspid regurgitation. There is moderate pulmonary hypertension by echo. RSVP is equal to is 52 mm of Hg , with RA mean of 10. Pulmonic Valve There is no pulmonic valvular stenosis. There is a mild to moderate amount of pulmonic regurgitation. Great Vessels The aortic root is not well visualized. Effusions There are no echocardiographic or Doppler indications for cardiac tamponade. Small pericardial effusion. : KARSTEN DANG > Evette Muhammad
== END 2017-11-17 18:50 | disposition short-term general hospital (02) | DRG 871 ==
LOC: ER 21:24 → EH 11-11 03:21 → 4W 11-11 10:45 → 4N 11-11 15:02
PROVIDERS: ADMIT Internal Medicine; ATTEND Internal Medicine
PROC: 5A09357 Assistance with Respiratory Ventilation, Less than 24 Consecutive Hours, Continuous Positive Airway Pressure (ICD-10-PCS; principal; 2017-11-11)
PROC: 3E0F73Z Introduction of Anti-inflammatory into Respiratory Tract, Via Natural or Artificial Opening (ICD-10-PCS; 2017-11-11)
DX: A41.9 Sepsis, unspecified organism (principal); J18.9 Pneumonia, unspecified organism; N39.0 Urinary tract infection, site not specified; I13.0 Hypertensive heart and chronic kidney disease with heart failure and stage 1 through stage 4 chronic kidney disease, or unspecified chronic kidney disease; I50.9 Heart failure, unspecified; R31.9 Hematuria, unspecified; E87.6 Hypokalemia; N18.3 Chronic kidney disease, stage 3 (moderate); D63.1 Anemia in chronic kidney disease; I48.91 Unspecified atrial fibrillation; I25.10 Atherosclerotic heart disease of native coronary artery without angina pectoris; J01.90 Acute sinusitis, unspecified; N40.1 Benign prostatic hyperplasia with lower urinary tract symptoms; Y84.6 Urinary catheterization as the cause of abnormal reaction of the patient, or of later complication, without mention of misadventure at the time of the procedure; Z60.2 Problems related to living alone; Z79.01 Long term (current) use of anticoagulants; Z99.81 Dependence on supplemental oxygen; Z95.5 Presence of coronary angioplasty implant and graft; Z83.6 Family history of other diseases of the respiratory system
CPT/HCPCS: 36415; 51701; 70450; 71046; 80048; 80053; 81001; 82550; 83735; 83880; 85025; 85027; 85610; 87040; 93005; 93010; 93306; 94660; 94799; 99285; G8978-GP; G8979-GP; J0456; J0696; J1956; J3490; J7030; J7060; J7620

== ENCOUNTER 2018-05-12 21:05 | Emergency (ER) | payer MEDICARE, BC ==
--- NOTE | 2018-05-12 21:23 | ER Document Report ---
ED General - General Stated Complaint: FALL Time Seen by Provider: 05/12/18 21:15 TRAVEL OUTSIDE OF THE [place] IN LAST 30 DAYS: No - HPI Notes: Patient is a 82-year-old male that presents to the emergency department for chief complaint of fall. Patient lives at home with family. He had an unwitnessed fall earlier this evening. Details about the fall are limited. Family told EMS that he did not lose consciousness but they did not witness the fall. Patient was found at the base of his chair with his head against the chair leg. Patient does not recall falling and is not sure what happened. He cannot provide any further useful information. Patient does state that he has had some shortness of breath that has progressively gotten worse over the last week. He states he does have congestive heart failure and has been taking his home Lasix. He denies any vision changes, headache, numbness, weakness, nausea and vomiting. Patient is on Coumadin for atrial fibrillation. Patient is complaining of pain in the back of his neck but he cannot elaborate on the type of pain. He does seem to be uncomfortable with any movement. Past Medical History: A. fib, CHF, hyperlipidemia Past Surgical History: Reviewed in chart Social History: Reviewed in chart Family History: Reviewed and noncontributory for presenting illness Allergies: Reviewed, see documented allergy list. REVIEW OF SYSTEMS: CONSTITUTIONAL : No fever No chills No diaphoresis No recent illness EENT: No vision changes No congestion No sore throat CARDIOVASCULAR: No chest pain No palpitations RESPIRATORY: shortness of breath No cough difficulty breathing GASTROINTESTINAL: No abdominal pain No nausea No vomiting No diarrhea GENITOURINARY: No dysuria No hematuria No difficulty urinating MUSCULOSKELETAL: No back pain No leg pain No arm pain Neck pain SKIN: No rashes No lesions LYMPHATIC: No swollen, enlarged glands. NEUROLOGICAL: No lightheadedness No headache No weakness No paresthesias PSYCHIATRIC: No anxiety No depression PHYSICAL EXAMINATION: Vital signs reviewed, nursing noted reviewed. GENERAL: Well-appearing, well-nourished and in no acute distress. HEAD: Right occipital cephalhematoma with overlying abrasion, normocephalic. EYES: Eyes appear normal, extraocular movements intact, sclera anicteric, conjunctiva are normal. ENT: nares patent, oropharynx clear without exudates. Moist mucous membranes. NECK: C-collar in place, no midline spinal tenderness, bilateral paraspinal tenderness, supple without lymphadenopathy LUNGS: Breath sounds diminished with bibasilar rhonchi, tachypnea, mild accessory muscle use, prolonged expiratory phase HEART: Regular rate and rhythm without murmurs ABDOMEN: Pitting lower abdominal wall edema soft, nontender, normoactive bowel sounds. No rebound, guarding, or rigidity. No masses appreciated. EXTREMITIES: Nontender, good range of motion, +2 pitting edema bilateral lower extremities and bilateral hands NEUROLOGICAL: Alert and oriented to person place and time, GCS 15, no focal neurological deficits. Moves all extremities spontaneously Motor and sensory grossly intact on exam. PSYCH: Normal mood, normal affect. SKIN: Warm, Dry, normal turgor, right occipital cephalohematoma with overlying abrasion - Related Data Allergies/Adverse Reactions: No Known Allergies Allergy (Verified 11/10/17 21:51) Past Medical History - Social History Smoking Status: Never Smoker Family History: COPD - Past Medical History Cardiac Medical History: Reports: Hx Atrial Fibrillation, Hx Congestive Heart Failure, Hx Coronary Artery Disease Pulmonary Medical History: Reports: Hx Bronchitis Renal/ Medical History: Denies: Hx Peritoneal Dialysis Past Surgical History: Reports: Hx Cardiac Surgery - stents about 7yrs ago Physical Exam - Vital signs Vitals: Resp Pulse Ox 27 H 95 05/12/18 21:14 05/12/18 21:14 Course - Re-evaluation Re-evalutation: 05/12/18 21:22 Vitals reviewed. Nursing notes reviewed. Patient presented from home for fall. The details on the fall are not clear and patient may have had a syncopal episode. He does have increased work of breathing and anasarca with a history of congestive heart failure. Patient placed on telemetry monitoring. He is oxygenating well currently on his home 2 L nasal cannula. 05/12/18 22:17 Patient reevaluated and given morphine for pain. His CT scan shows displaced type III C2 fracture. Patient is still GCS 15 with no focal neurologic deficits. Patient will be transferred to [facility] for trauma evaluation. Accepting physician Dr. Radha Mcconnell. Patient's x-ray shows congestive heart failure. It was also read as possible bibasilar pneumonia however he has not had a cough and has a normal leukocytosis with no fever. I do not clinically suspect pneumonia. Patient is significantly edematous and will be given a dose of IV Lasix. He does have an elevated crea tinine which is baseline for him. Cervical Spine CT 05/12/18 21:17 IMPRESSION: Minimally displaced type III C2 fracture involving the odontoid process. No significant subluxation. Critical result is being communicated to patient staff. Chest X-Ray 05/12/18 21:17 IMPRESSION: Findings likely representing CHF or bibasilar pneumonia. Head CT 05/12/18 21:17 IMPRESSION: No acute intracranial hemorrhage. Mild chronic ischemic changes. - Vital Signs Vital signs: Temp Pulse Resp BP Pulse Ox 97.6 F 27 H 156/75 H 95 05/12/18 21:28 05/12/18 21:14 05/12/18 21:28 05/12/18 21:14 - Laboratory Result Diagrams: 05/12/18 21:35 05/12/18 21:35 Laboratory results interpreted by me: 05/12/18 05/12/18 05/12/18 21:35 21:35 21:35 RBC 3.92 L Hgb 10.1 L Hct 32.4 L MCH 25.8 L MCHC 31.3 L RDW 20.1 H Plt Count 108 L Seg Neutrophils % 79.9 H Lymphocytes % 7.5 L PT Sodium 145.6 H Chloride 110 H BUN 37 H Creatinine 1.92 H Est GFR ( Amer) 41 L Est GFR (Non-Af Amer) 34 L NT-Pro-B Natriuret Pep 17493 H 05/12/18 21:35 RBC Hgb Hct MCH MCHC RDW Plt Count Seg Neutrophils % Lymphocytes % PT 23.2 H Sodium Chloride BUN Creatinine Est GFR ( Amer) Est GFR (Non-Af Amer) NT-Pro-B Natriuret Pep Critical Care Note - Critical Care Note Total time excluding time spent on procedures (mins): 35 Comments: 35 Minutes of critical care time spent in direct contact evaluating and reevaluating the patient, treating symptoms, reviewing labs and studies and speaking with family and consultants excluding any procedures. Patient req uiring trauma evaluation, case discussed with trauma team. Potential for neurologic decompensation with high cervical spine fracture Discharge - Discharge Clinical Impression: Unwitnessed fall Traumatic closed fracture of C2 vertebra with minimal displacement Qualifiers: Encounter type: initial encounter Qualified Code(s): S12.100A - Unspecified displaced fracture of second cervical vertebra, initial encounter for closed fracture CHF exacerbation Qualifiers: Heart failure type: unspecified Qualified Code(s): I50.9 - Heart failure, unspecified Condition: Stable Disposition: [facility]
[2018-05-12 21:47] LABS: ABSOLUTE EOSINOPHILS # (AUTO) 0.1 10^3/uL (0.0-0.6); ABSOLUTE LYMPHOCYTES (AUTO) 0.6 10^3/uL (0.5-4.7); ABSOLUTE MONOCYTES (AUTO) 0.8 10^3/uL (0.1-1.4); ABSOLUTE NEUT (AUTO) 5.9 10^3/uL (1.7-8.2); BASOPHILS % (AUTO) 0.5 % (0-2); EOSINOPHILS % (AUTO) 1.3 % (0-6); HEMATOCRIT 32.4 % (37.9-51.0); HEMOGLOBIN 10.1 g/dL (13.5-17.0); LYMPHOCYTES % (AUTO) 7.5 % (13-45); MEAN CORPUSCULAR HEMOGLOBIN 25.8 pg (27.0-33.4); MEAN CORPUSCULAR HGB CONC 31.3 g/dL (32.0-36.0); MEAN CORPUSCULAR VOLUME 83 fl (80-97); MONOCYTES % (AUTO) 10.8 % (3-13); PLATELET COUNT 108 10^3/uL (150-450); RED BLOOD COUNT 3.92 10^6/uL (4.35-5.55); RED CELL DISTRIBUTION WIDTH 20.1 % (11.5-14.0); SEGMENTED NEUTROPHILS % (AUTO) 79.9 % (42-78); TOTAL CELLS COUNTED % (AUTO) 100 %; WHITE BLOOD COUNT 7.4 10^3/uL (4.0-10.5)
[2018-05-12 22:00] LABS: INTERNATIONAL RATION (INR) 1.95; PROTHROMBIN TIME 23.2 SEC (11.4-15.4)
--- NOTE | 2018-05-12 22:05 | RADIOLOGY REPORT (SQ) ---
EXAM DESCRIPTION: CT HEAD WITHOUT IV CONTRAST COMPLETED DATE/TME: 05/12/2018 21:17 CLINICAL HISTORY: 82 years, Male, fell Findings: No acute intracranial hemorrhage, mass effect or midline shift. Mild patchy hypodense areas in periventricular white matter of both cerebral hemispheres consistent with chronic small vessel ischemic changes. Right occipital scalp contusion is noted. The skull is intact. IMPRESSION: No acute intracranial hemorrhage. Mild chronic ischemic changes.
[2018-05-12 22:07] LABS: ALANINE AMINOTRANSFERASE 23 U/L (21-72); ALBUMIN 3.7 g/dL (3.5-5.0); ALKALINE PHOSPHATASE 83 U/L (38-126); ANION GAP 9 (5-19); ASPARTATE AMINO TRANSFERASE 24 U/L (17-59); BILIRUBIN,DIRECT 0.3 mg/dL (0.0-0.4); BILIRUBIN,TOTAL 0.8 mg/dL (0.2-1.3); BLOOD UREA NITROGEN 37 mg/dL (7-20); CALCIUM 8.8 mg/dL (8.4-10.2); CARBON DIOXIDE 27 mmol/L (22-30); CHLORIDE 110 mmol/L (98-107); GLUCOSE 108 mg/dL (75-110); POTASSIUM 4.5 mmol/L (3.6-5.0); SODIUM 145.6 mmol/L (137-145); TOTAL PROTEIN 6.8 g/dL (6.3-8.2)
--- NOTE | 2018-05-12 22:07 | RADIOLOGY REPORT (SQ) ---
EXAM DESCRIPTION: CT CERVICAL SPINE WITHOUT IV CONTRAST COMPLETED DATE/TME: 05/12/2018 21:17 CLINICAL HISTORY: 82 years, Male, fell This exam was performed according to our departmental dose-optimization program which includes automated exposure control, adjustment of the mA and/or kVp according to patient size and/or use of iterative reconstruction technique where applicable. FINDINGS: Vertebral body heights are intact. There is a minimally displaced C2 fracture. Facets are normally aligned. No significant subluxation. C2 fractures through the base of the odontoid. It also extends to the right lateral mass of C2. This is a type III odontoid process and C2 fracture. IMPRESSION: Minimally displaced type III C2 fracture involving the odontoid process. No significant subluxation. Critical result is being communicated to patient staff.
[2018-05-12] MEDS ORDERED: MORPHINE SULFATE 10 MG/ML INJ IV ONE (22:11)
--- NOTE | 2018-05-12 22:15 | RADIOLOGY REPORT (SQ) ---
EXAM DESCRIPTION: XR CHEST 1 VIEW COMPLETED DATE/TME: 05/12/2018 21:17 CLINICAL HISTORY: 82 years, Male, shortness of breath Findings: Heart is moderately enlarged. No pneumothorax. Moderate bilateral perihilar airspace disease/atelectatic changes are noted. Mild bilateral pleural effusions. No pneumothorax. IMPRESSION: Findings likely representing CHF or bibasilar pneumonia.
[2018-05-12] MEDS ORDERED: FUROSEMIDE INJ/PF 40 MG/4 ML SDV IV ONE (22:19)
[2018-05-12 22:32] LABS: TROPONIN I 0.052 ng/mL
[2018-05-12 23:00] VITALS: BP 161/91
== END 2018-05-12 23:14 | disposition short-term general hospital (02) ==
LOC: ER 21:05
DX: S12.120A Other displaced dens fracture, initial encounter for closed fracture (principal); S00.03XA Contusion of scalp, initial encounter; W19.XXXA Unspecified fall, initial encounter; Y92.009 Unspecified place in unspecified non-institutional (private) residence as the place of occurrence of the external cause; I50.9 Heart failure, unspecified; Z79.899 Other long term (current) drug therapy; Z99.81 Dependence on supplemental oxygen; I48.91 Unspecified atrial fibrillation; Z79.01 Long term (current) use of anticoagulants; R06.02 Shortness of breath; R60.1 Generalized edema; R74.8 Abnormal levels of other serum enzymes; I25.10 Atherosclerotic heart disease of native coronary artery without angina pectoris; Z95.5 Presence of coronary angioplasty implant and graft
CPT/HCPCS: 99291; 51702; 96374; 96375; 36415; 85025; 85610; 80053; 84484; 83880; 71045; 70450; 72125; L0172; L0120; J1940; J2270

== ENCOUNTER 2018-12-02 17:23 | Inpatient (IN) | payer MEDICARE, BC ==
--- NOTE | 2018-12-02 18:29 | ER Document Report ---
ED Medical Screen (RME) - General Chief Complaint: Shortness Of Breath Stated Complaint: SHORTNESS OF BREATH Time Seen by Provider: 12/02/18 18:21 Mode of Arrival: Wheelchair Information source: Patient, Relative Notes: 83-year-old male presented to ED for complaint of shortness of breath times a week. He does have A. fib. He has a history of coronary artery disease cholesterol high blood pressure arthritis pneumonia and a fractured neck. He does have cardiac stents. His heart rate was fluctuating between 42 and 60 while he was assessing him. He was on 5 L at 98% O2 sat wean down to 3 L and is staying 96%. Patient is alert oriented he states he has been very short of breath for the last week. I have greeted and performed a rapid initial assessment of this patient. A comprehensive ED assessment and evaluation of the patient, analysis of test results and completion of medical decision making process will be conducted by an additional ED providers. TRAVEL OUTSIDE OF THE [place] IN LAST 30 DAYS: No - Related Data Allergies/Adverse Reactions: No Known Allergies Allergy (Verified 12/02/18 17:26) Past Medical History - Social History Chew tobacco use (# tins/day): No - Past Medical History Cardiac Medical History: Reports: Hx Atrial Fibrillation, Hx Congestive Heart Failure, Hx Coronary Artery Disease Pulmonary Medical History: Reports: Hx Bronchitis Renal/ Medical History: Denies: Hx Peritoneal Dialysis Past Surgical History: Reports: Hx Cardiac Surgery - stents about 7yrs ago - Immunizations History of Influenza Vaccine for 12/2016 - 05/2017 Season: Refused Physical Exam - Vital signs Vitals: Temp Pulse Resp BP Pulse Ox 98.5 F 60 28 H 144/52 H 98 12/02/18 18:07 12/02/18 18:07 12/02/18 18:07 12/02/18 18:07 12/02/18 18:07 Course - Vital Signs Vital signs: Temp Pulse Resp BP Pulse Ox 98.5 F 60 28 H 144/52 H 98 12/02/18 18:07 12/02/18 18:07 12/02/18 18:07 12/02/18 18:07 12/02/18 18:07
[2018-12-02 18:48] LABS: ABSOLUTE BASOPHILS # (AUTO) 0.1 10^3/uL (0.0-0.2); ABSOLUTE EOSINOPHILS # (AUTO) 0.1 10^3/uL (0.0-0.6); ABSOLUTE LYMPHOCYTES (AUTO) 0.7 10^3/uL (0.5-4.7); ABSOLUTE MONOCYTES (AUTO) 0.6 10^3/uL (0.1-1.4); BASOPHILS % (AUTO) 0.8 % (0-2); EOSINOPHILS % (AUTO) 1.3 % (0-6); HEMATOCRIT 35.1 % (37.9-51.0); HEMOGLOBIN 11.3 g/dL (13.5-17.0); LYMPHOCYTES % (AUTO) 11.2 % (13-45); MEAN CORPUSCULAR HEMOGLOBIN 29.6 pg (27.0-33.4); MEAN CORPUSCULAR HGB CONC 32.2 g/dL (32.0-36.0); MEAN CORPUSCULAR VOLUME 92 fl (80-97); MONOCYTES % (AUTO) 9.7 % (3-13); PLATELET COUNT 113 10^3/uL (150-450); RED BLOOD COUNT 3.81 10^6/uL (4.35-5.55); RED CELL DISTRIBUTION WIDTH 19.9 % (11.5-14.0); TOTAL CELLS COUNTED % (AUTO) 100 %; WHITE BLOOD COUNT 6.5 10^3/uL (4.0-10.5)
[2018-12-02 18:57] LABS: INTERNATIONAL RATION (INR) 1.33; PROTHROMBIN TIME 16.6 SEC (11.4-15.4)
[2018-12-02 18:58] LABS: PARTIAL THROMBOPLASTIN TIME 35.8 SEC (23.5-35.8)
[2018-12-02 19:09] LABS: ALBUMIN 3.8 g/dL (3.5-5.0); ALKALINE PHOSPHATASE 67 U/L (38-126); ANION GAP 7 (5-19); ASPARTATE AMINO TRANSFERASE 24 U/L (17-59); BILIRUBIN,DIRECT 0.5 mg/dL (0.0-0.4); BILIRUBIN,TOTAL 1.3 mg/dL (0.2-1.3); BLOOD UREA NITROGEN 34 mg/dL (7-20); CALCIUM 9.4 mg/dL (8.4-10.2); CARBON DIOXIDE 35 mmol/L (22-30); CHLORIDE 104 mmol/L (98-107); CREATINE KINASE 41 U/L (55-170); GLUCOSE 94 mg/dL (75-110); POTASSIUM 3.8 mmol/L (3.6-5.0); TOTAL PROTEIN 7.4 g/dL (6.3-8.2)
[2018-12-02 19:21] LABS: CREATINE KINASE MB 1.21 ng/mL (<4.55)
[2018-12-02 19:39] LABS: TROPONIN I 0.023 ng/mL
[2018-12-02 19:52] LABS: APPEARANCE,URINE CLEAR; BILIRUBIN,URINE NEGATIVE (NEGATIVE); COLOR,URINE YELLOW; GLUCOSE, URINE NEGATIVE (NEGATIVE); KETONES,URINE NEGATIVE (NEGATIVE); LEUKOCYTE ESTERASE,URINE NEGATIVE (NEGATIVE); NITRITE,URINE NEGATIVE (NEGATIVE); PROTEIN,URINE 100 mg/dL (NEGATIVE); URINE SPECIFIC GRAVITY 1.012; UROBILINOGEN,URINE NEGATIVE mg/dL (<2.0)
--- NOTE | 2018-12-02 20:20 | RADIOLOGY REPORT (SQ) ---
EXAM DESCRIPTION: XR CHEST 1 VIEW COMPLETED DATE/TME: 12/02/2018 00:00 CLINICAL HISTORY: sob COMPARISON: November 12, 2014 FINDINGS: Blunted costophrenic angles and increased opacity at the lower lungs could represent a combination of pleural fluid and atelectasis. Recommend follow-up. Cardiac silhouette is enlarged which could be secondary to cardiomegaly, unchanged. Aorta is tortuous. There is atherosclerosis. Bandlike opacities of the mid lungs could be secondary to scar versus subsegmental atelectasis. Skin folds project over the lungs. IMPRESSION: Blunted costophrenic angles and increased opacity at the lower lungs could represent a combination of pleural fluid and atelectasis. Recommend follow-up. Cardiac silhouette is enlarged which could be secondary to cardiomegaly.
[2018-12-02] MEDS ORDERED: NITROGLYCERIN 2% OINTMENT 1 GM PACKET TP ONE (20:30)
[2018-12-02] MEDS ORDERED: FUROSEMIDE INJ/PF 40 MG/4 ML SDV IV ONE (20:31)
--- NOTE | 2018-12-02 21:36 | ER Document Report ---
ED Respiratory Problem - General Chief Complaint: Shortness Of Breath Stated Complaint: SHORTNESS OF BREATH Time Seen by Provider: 12/02/18 18:21 Mode of Arrival: Wheelchair TRAVEL OUTSIDE OF THE [place] IN LAST 30 DAYS: No - HPI Patient complains to provider of: CHF, Short of breath Onset: Just prior to arrival Duration: Continuous Initiating Event: No: Allergy, Aspiration/Choking, Exertion, Exposure to ch emicals, Exposure to dust, Exposure to fumes, Exposure to mold, Exposure to smoke, Out of meds, Sports/exercise, URI, Other Quality of pain: denies: No pain, Achy, Burning, Cramping, Dull, Fullness, Pressure, Sharp, Stabbing, Throbbing, Other Severity: Moderate Pain Level: 3 Context: Hx CHF Short of Breath: Moderate Chest pain/discomfort: denies: Center, Constant, Heaviness, Intermittent, Left, Pain, Radiates to arm, Radiates to back, Radiates to jaw, Right, Tightness, Worse with deep breaths Cough: Nonproductive Sputum amount: None Associated symptoms: None Similar symptoms previously: Yes - with chf - Related Data Allergies/Adverse Reactions: No Known Allergies Allergy (Verified 12/02/18 17:26) Past Medical History - General Information source: Patient, Relative - Social History Smoking Status: Never Smoker Chew tobacco use (# tins/day): No Family History: COPD Patient has suicidal ideation: No Patient has homicidal ideation: No - Past Medical History Cardiac Medical History: Reports: Hx Atrial Fibrillation, Hx Congestive Heart Failure, Hx Coronary Artery Disease Pulmonary Medical History: Reports: Hx Bronchitis Renal/ Medical History: Denies: Hx Peritoneal Dialysis Past Surgical History: Reports: Hx Cardiac Surgery - stents about 7yrs ago Review of Systems - Review of Systems Constitutional: No symptoms reported EENT: No symptoms reported Cardiovascular: Dyspnea, Edema, Paroxysmal Nocturnal Dysp Respiratory: Cough, Short of breath Gastrointestinal: No symptoms reported Genitourinary: No symptoms reported Male Genitourinary: No symptoms reported Musculoskeletal: No symptoms reported Neurological/Psychological: No symptoms reported -: Yes All other systems reviewed and negative Physical Exam - Vital signs Vitals: Temp Pulse Resp BP Pulse Ox 98.5 F 60 28 H 144/52 H 98 12/02/18 18:07 12/02/18 18:07 12/02/18 18:07 12/02/18 18:07 12/02/18 18:07 Notes: PHYSICAL EXAMINATION: GENERAL: Well-appearing, well-nourished and in no acute distress. HEAD: Atraumatic, normocephalic. EYES: Pupils equal round and reactive to light, extraocular movements intact, sclera anicteric, conjunctiva are normal. ENT: nares patent, oropharynx clear without exudates. Moist mucous membranes. NECK: Normal range of motion, supple without lymphadenopathy LUNGS: Rales heard bilaterally with decreased breath sounds at the base bilaterally. No wheezes or rhonchi noted. Moderate respiratory distress is noted. HEART: Regular rate and rhythm without murmurs ABDOMEN: Soft, nontender, normoactive bowel sounds. No guarding, no rebound. No masses appreciated. EXTREMITIES: Normal range of motion, bilateral 2+ pitting edema to lower extremities. No cyanosis. NEUROLOGICAL: No focal neurological deficits. Moves all extremities spontaneously and on command. PSYCH: Normal mood, normal affect. SKIN: Warm, Dry, normal turgor, no rashes or lesions noted. Course - Vital Signs Vital signs: Temp Pulse Resp BP Pulse Ox 98.5 F 60 15 156/68 H 92 12/02/18 18:07 12/02/18 18:07 12/02/18 20:01 12/02/18 20:01 12/02/18 20:01 - Laboratory Result Diagrams: 12/02/18 18:31 12/02/18 18:31 Laboratory results interpreted by me: 12/02/18 12/02/18 12/02/18 18:31 18:31 18:31 RBC 3.81 L Hgb 11.3 L Hct 35.1 L RDW 19.9 H Plt Count 113 L Lymph % (Auto) 11.2 L PT 16.6 H ABG pO2 ABG HCO3 ABG Total CO2 ABG O2 Saturation Sodium 145.9 H Carbon Dioxide 35 H BUN 34 H Creatinine 1.90 H Est GFR ( Amer) 41 L Est GFR (MDRD) Non-Af 34 L Direct Bilirubin 0.5 H Creatine Kinase 41 L NT-Pro-B Natriuret Pep Urine Protein Urine Blood 12/02/18 12/02/18 12/02/18 18:31 19:29 21:30 RBC Hgb Hct RDW Plt Count Lymph % (Auto) PT ABG pO2 119.7 H ABG HCO3 29.7 H ABG Total CO2 31.0 H ABG O2 Saturation 98.5 H Sodium Carbon Dioxide BUN Creatinine Est GFR ( Amer) Est GFR (MDRD) Non-Af Direct Bilirubin Creatine Kinase NT-Pro-B Natriuret Pep 07435 H Urine Protein 100 H Urine Blood SMALL H - EKG Interpretation by Me Rate: Normal Rhythm: A.Fib [place]/QRS: RBBB When compared to previous EKG there are: No significant change - Transfer of Care Notes: 12/02/18 22:17 Note patient appears better on the BiPAP will obtain ABG and admit patient. Discharge - Discharge Clinical Impression: Acute exacerbation of congestive heart failure, Hypoxia, Respiratory failure, Congestive heart failure Condition: Stable Disposition: ADMITTED INPATIENT Admitting Provider: Juan Pablo (Hospitalist) Unit Admitted: Medical Floor
[2018-12-02 21:53] LABS: ARTERIAL BLOOD BASE EXCESS 5.1 mmol/L; ARTERIAL BLOOD H2CO3 1.31 mmol/L (1.05-1.35); ARTERIAL BLOOD HCO3 29.7 mmol/L (20-24); ARTERIAL BLOOD O2 SATURATION 98.5 % (94-98); ARTERIAL BLOOD PCO2 43.6 mmHg (35-45); ARTERIAL BLOOD PH 7.45 (7.35-7.45); ARTERIAL BLOOD PO2 119.7 mmHg (80-100)
[2018-12-02 21:56] LABS: ARTERIAL BLOOD FIO2 80%
[2018-12-02] MEDS ORDERED: ACETAMINOPHEN 325 MG TABLET PO PRN (23:37)
[2018-12-02] MEDS ORDERED: MAG HYDROX/AL HYDROX/SIMETH SUSP 30 ML UDCUP PO PRN (23:37)
[2018-12-02] MEDS ORDERED: MAGNESIUM HYDROXIDE SUSP 30 ML UDCUP PO PRN (23:37)
[2018-12-03 00:34] LABS: FREE T3 1.96 pg/mL (2.77-5.27); FREE T4 (FREE THYROXINE) 1.35 ng/dL (0.78-2.19)
[2018-12-03] MEDS ORDERED: ONDANSETRON HCL INJ/PF 4 MG/2 ML SDV IV PRN (00:35)
[2018-12-03] MEDS ORDERED: ONDANSETRON 4 MG TAB.RAPDIS PO PRN (00:35)
[2018-12-03 01:45] LABS: CREATINE KINASE MB 1.08 ng/mL (<4.55); TROPONIN I 0.022 ng/mL
[2018-12-03] MEDS: HYDRALAZINE HCL INJ/PF 20 MG/1 ML SDV IV PRN ×2 (02:57→20:13)
--- NOTE | 2018-12-03 03:47 | PDOC H&P ---
History of Present Illness Admission Date/PCP: 12/02/18 23:21 Donte Salinas MD Patient complains of: Dyspnea History of Present Illness: ESTELA CRUZ is a 83 year old male who presented to the emergency room with a one-week history of dyspnea. He admits to having mild dyspnea primarily o ccurring only with exertion for the last week then suddenly developing moderate to severe dyspnea a short time before his emergency arrival. The increased level of dyspnea has been constant since onset just prior to arrival, worsened by exertion and accompanied by a nonproductive cough. He denies other associated or accompanying signs and symptoms. He admits prior similar episodes with congestive heart failure and has not identified any additional aggravating or ameliorating factors for his dyspnea. In the emergency room he was found to have bilateral pleural effusions and acute pulmonary edema. He was treated with diuretics and BiPAP showing a good response. Patient's BNP was noted to be markedly elevated at greater than 32,000. He was subsequently admitted to the hospital for further evaluation and treatment. Past Medical History Cardiac Medical History: Reports: Atrial Fibrillation, Congestive Heart Failure, Coronary Artery Disease, Hyperlipidema, Hypertension Denies: DVT, Myocardial Infarction, Pulmonary Embolism Pulmonary Medical History: Reports: Bronchitis, Pneumonia Denies: Asthma, Chronic Obstructive Pulmonary Disease (COPD) EENT Medical History: Denies: Cataracts, Ears - Hearing aids Neurological Medical History: Denies: Hemorrhagic CVA, Ischemic CVA, Seizures Endocrine Medical History: Denies: Diabetes Mellitus Type 1, Diabetes Mellitus Type 2, Hyperthyroidism, Hypothyroidism Renal/ Medical History: Reports: Chronic Kidney Disease, Other - Benign prostatic hypertrophy Denies: Nephrolithiasis Malignancy Medical History: Reports: None GI Medical History: Denies: Cirrhosis, Crohn's Disease, Diverticulitis, Hepatitis, Ulcerative C olitis Musculoskeltal Medical History: Denies: Arthritis, Gout Skin Medical History: Denies: Eczema, Psoriasis Psychiatric Medical History: Denies: Alcohol Dependency, Substance Abuse, Tobacco Dependency Traumatic Medical History: Reports: None Hematology: Reports: Anemia - Chronic anemia of renal insufficiency Denies: Bleeding Tendencies Infectious Medical History: Reports: None Social History Information Source: Patient Lives with: Family Smoking Status: Never Smoker Frequency of Alcohol Use: None Hx Recreational Drug Use: No Drugs: None Hx Prescription Drug Abuse: No - Advance Directive Resuscitation Status: Full Code Surrogate healthcare decision maker:: Mica Molina Family History Family History: COPD. denies: DM, Malignancy Parental Family History Reviewed: Yes Children Family History Reviewed: No Sibling(s) Family History Reviewed.: Yes Medication/Allergy Home Medications: Diltiazem HCl [Cardizem Cd 240 mg Capsule.cr] 240 mg PO DAILY 11/11/17 Finasteride [Proscar 5 mg Tablet] 5 mg PO DAILY 11/11/17 Lovastatin [Altoprev] 20 mg PO DAILY 11/11/17 Metoprolol Succinate [Toprol Xl 50 mg Tab.sr] 50 mg PO BID 11/11/17 Potassium Chloride [K-Tab ER] 10 meq PO BID 11/11/17 Cefuroxime Axetil [Ceftin 500 mg Tablet] 500 mg PO BID #10 tablet 11/17/17 Fluticasone Propionate [Flonase Nasal [place] 50 Mcg/[place] 16 gm] 2 spray NASL Q12 spray.pump 11/17/17 Furosemide [Lasix 40 mg Tablet] 40 mg PO BID tablet 11/17/17 Ipratropium/Albuterol Sulfate [Duoneb 3 ml Ampul] 3 ml NEB [id number] PRN vial.neb 11/17/17 Ipratropium/Albuterol Sulfate [Duoneb 3 ml Ampul] 3 ml NEB [id number] vial.neb 11/17/17 Warfarin Sodium [Coumadin 5 mg Tablet] 10 mg PO QHS tablet 11/17/17 Allergies/Adverse Reactions: No Known Allergies Allergy (Verified 12/02/18 17:26) Review of Systems Constitutional: ABSENT: chills, fever(s) Eyes: ABSENT: visual disturbances, other - Eye pain Ears: ABSENT: hearing changes, other - Ear pain Nose, Mouth, and Throat: ABSENT: mouth pain, sore throat Cardiovascular: PRESENT: as per HPI, dyspnea on exertion. ABSENT: chest pain, edema, orthropnea, palpitations Respiratory: PRESENT: as per HPI, cough, dyspnea. ABSENT: hemoptysis, sputum Gastrointestinal: ABSENT: abdominal pain, constipation, diarrhea, nausea, vomiting Genitourinary: ABSENT: dysuria, hematuria Musculoskeletal: ABSENT: back pain, joint swelling, muscle weakness Integumentary: ABSENT: pruritus, rash Neurological: ABSENT: confusion, convulsions, focal weakness, memory loss, syncope Psychiatric: ABSENT: anxiety, depression Endocrine: ABSENT: cold intolerance, heat intolerance Hematologic/Lymphatic: PRESENT: easy bleeding - On warfarin, easy bruising - On warfarin Allergic/Immunologic: ABSENT: seasonal rhinorrhea Physical Exam Vital Signs: Temp Pulse Resp BP Pulse Ox 97.9 F 60 18 167/69 H 98 12/02/18 23:00 12/02/18 18:07 12/02/18 23:01 12/02/18 23:01 12/02/18 23:01 Intake & Output 11/30/18 12/01/18 12/02/18 23:59 23:59 23:59 Output Total 250 Balance -250 Weight 68.5 kg General appearance: PRESENT: no acute distress, cooperative Head exam: PRESENT: atraumatic, normocephalic Eye exam: PRESENT: conjunctiva pink. ABSENT: conjunctival injection, scleral icterus Ear exam: PRESENT: normal external ear exam. ABSENT: bleeding, drainage Mouth exam: PRESENT: dry mucosa, neck supple Neck exam: PRESENT: JVD. ABSENT: thyromegaly, tracheal deviation Respiratory exam: PRESENT: decreased breath sounds - Decreased breath sounds in bilateral bases, rales - Fine rales in the lower one third of both lung [place], symmetrical, other - On BiPAP Cardiovascular exam: PRESENT: gallop - S4 gallop noted, RRR. ABSENT: clicks, rubs Pulses: PRESENT: normal radial pulses, normal dorsalis pedis pul Vascular exam: PRESENT: normal capillary refill. ABSENT: pallor GI/Abdominal exam: PRESENT: normal bowel sounds, soft Rectal exam: PRESENT: deferred Extremities exam: ABSENT: joint swelling, pedal edema, tenderness Musculoskeletal exam: ABSENT: deformity, dislocation Neurological exam: PRESENT: alert, oriented to person, oriented to place, oriented to time, oriented to situation, CN II-XII grossly intact. ABSENT: motor sensory deficit Psychiatric exam: PRESENT: appropriate affect, normal mood Skin exam: PRESENT: dry, intact, warm. ABSENT: jaundice, rash, urticaria Results Laboratory Results: 12/02/18 18:31 12/02/18 18:31 12/02/18 12/02/18 12/02/18 18:31 18:31 19:29 WBC 6.5 RBC 3.81 L Hgb 11.3 L Hct 35.1 L MCV 92 MCH 29.6 MCHC 32.2 RDW 19.9 H Plt Count 113 L Seg Neutrophils % 77.0 Carbonic Acid HCO3/H2CO3 Ratio ABG pH ABG pCO2 ABG pO2 ABG HCO3 ABG O2 Saturation ABG Base Excess FiO2 Sodium 145.9 H Potassium 3.8 Chloride 104 Carbon Dioxide 35 H Anion Gap 7 BUN 34 H Creatinine 1.90 H Est GFR ( Amer) 41 L Glucose 94 Calcium 9.4 Total Bilirubin 1.3 AST 24 Alkaline Phosphatase 67 Total Protein 7.4 Albumin 3.8 Urine Color YELLOW Urine Appearance CLEAR Urine pH 6.0 Ur Specific [employer] 1.012 Urine Protein 100 H Urine Glucose (UA) NEGATIVE Urine Ketones NEGATIVE Urine Blood SMALL H Urine Nitrite NEGATIVE Ur Leukocyte Esterase NEGATIVE Urine WBC (Auto) 2 Urine RBC (Auto) 2 12/02/18 21:30 WBC RBC Hgb Hct MCV MCH MCHC RDW Plt Count Seg Neutrophils % Carbonic Acid 1.31 HCO3/H2CO3 Ratio 22:1 ABG pH 7.45 ABG pCO2 43.6 ABG pO2 119.7 H ABG HCO3 29.7 H ABG O2 Saturation 98.5 H ABG Base Excess 5.1 FiO2 80% Sodium Potassium Chloride Carbon Dioxide Anion Gap BUN Creatinine Est GFR ( Amer) Glucose Calcium Total Bilirubin AST Alkaline Phosphatase Total Protein Albumin Urine Color Urine Appearance Urine pH Ur Specific [employer] Urine Protein Urine Glucose (UA) Urine Ketones Urine Blood Urine Nitrite Ur Leukocyte Esterase Urine WBC (Auto) Urine RBC (Auto) 12/02/18 12/02/18 12/02/18 18:31 18:31 18:31 Creatine Kinase 41 L CK-MB (CK-2) 1.21 Troponin I 0.023 NT-Pro-B Natriuret Pep [id number] H Impressions: Chest X-Ray 12/02/18 00:00 IMPRESSION: Blunted costophrenic angles and increased opacity at the lower lungs could represent a combination of pleural fluid and atelectasis. Recommend follow-up. Cardiac silhouette is enlarged which could be secondary to cardiomegaly. Assessment and Plan - Diagnosis (1) Acute pulmonary edema Is this a current diagnosis for this admission?: Yes Plan: Patient's pulmonary edema will be treated with BiPAP for respiratory support and he was also given diuretics in the emergency room. He will receive morphine sulfate on a as needed basis for acute dyspnea and will also be treated with intravenous hydralazine 20 mg every 4 hours as needed for control of systolic blood pressure greater than 160 or diastolic blood pressure greater than 100, a nitroglycerin paste application of 1 inch every 6 hours and continued IV Lasix 40 mg every 6 hours. A daily metabolic profile with magnesium level and a CBC will be obtained. Patient may use Nubain 510 mg IV every 3 hours on a as needed basis for pain via a sliding scale. (2) Acute respiratory failure with hypoxia Is this a current diagnosis for this admission?: Yes Plan: Patient receive supplemental oxygen via nasal cannula and/or noninvasive airway pressure support devices such as BiPAP or CPAP. We will maintain the patient's O2 sat at greater than 93%. O2 sat will be checked on a regular basis throughout hospital course. (3) Acute on chronic diastolic congestive heart failure Is this a current diagnosis for this admission?: Yes Plan: Patient be continued on his usual therapeutic regiment for congestive heart failure as the current episode is judged to be flash pulmonary edema. Minor adjustments may be made in his CHF regimen as deemed appropriate by his daytime hospitalist and/or body component engineer. Patient will be observed closely for clinical changes and his heart failure status. (4) Chronic kidney disease, stage 3 Is this a current diagnosis for this admission?: Yes Plan: Patient will have daily metabolic profiles with magnesium levels obtained as well as a daily CBC as part of monitoring his overall course including his chronic renal insufficiency. (5) Chronic atrial fibrillation Is this a current diagnosis for this admission?: Yes Plan: Patient will be continued on his usual medications for his chronic atrial fibrillation for both rate control and antiembolic considerations. Adjustments to the patient's medication will be made only as required. (6) Anticoagulant long-term use Is this a current diagnosis for this admission?: Yes Plan: Daily PT and INR will be obtained to follow and adjust if necessary, the patient's warfarin therapy. - Time Time Spent with patient: 25-34 minutes Medications reviewed and adjusted accordingly: Yes - Inpatient Certification Based on my medical assessment, after consideration of the patient's comorbidities, presenting symptoms, or acuity I expect that the services needed warrant INPATIENT care.: Yes I certify that my determination is in accordance with my understanding of Medicare's requirements for reasonable and necessary INPATIENT services [42 CFR 412.3e].: Yes Medical Necessity: Significant Comorbidiites Make Outpatient Treatment Too Risky, Need Close Monitoring Due to Risk of Patient Decompensation, Risk of Complication if Not Cared For in Hospital, Risk of Diagnosis Which Will Require Inpatient Eval/Care/Monitoring, Other - Need for respiratory support with BiPAP
[2018-12-03] MEDS: HEPARIN SOD (PORCINE) 5,000 UNIT/ML 1 ML VIAL SUBCUT SCH ×3 (06:28→21:00)
[2018-12-03] MEDS: PANTOPRAZOLE SODIUM 20 MG TABLET.DR PO SCH (06:39)
[2018-12-03] MEDS: FUROSEMIDE INJ/PF 40 MG/4 ML SDV IV SCH ×4 (06:39→23:00)
[2018-12-03] MEDS: NITROGLYCERIN 2% OINTMENT 1 GM PACKET TP SCH ×4 (06:39→23:23)
[2018-12-03 06:59] LABS: HEMATOCRIT 34.9 % (37.9-51.0); HEMOGLOBIN 11.3 g/dL (13.5-17.0); MEAN CORPUSCULAR HEMOGLOBIN 29.8 pg (27.0-33.4); MEAN CORPUSCULAR HGB CONC 32.4 g/dL (32.0-36.0); MEAN CORPUSCULAR VOLUME 92 fl (80-97); PLATELET COUNT 107 10^3/uL (150-450); RED BLOOD COUNT 3.79 10^6/uL (4.35-5.55); RED CELL DISTRIBUTION WIDTH 19.9 % (11.5-14.0); WHITE BLOOD COUNT 7.2 10^3/uL (4.0-10.5)
[2018-12-03 07:19] LABS: ANION GAP 8 (5-19); BLOOD UREA NITROGEN 33 mg/dL (7-20); CALCIUM 9.2 mg/dL (8.4-10.2); CARBON DIOXIDE 35 mmol/L (22-30); CHLORIDE 103 mmol/L (98-107); CHOLESTEROL 108.74 mg/dL (0-200); CREATINE KINASE 36 U/L (55-170); POTASSIUM 3.3 mmol/L (3.6-5.0); TRIGLYCERIDES 67 mg/dL (<150)
[2018-12-03 07:30] LABS: CREATINE KINASE MB 1.29 ng/mL (<4.55); DIRECT LDL 61 mg/dL (<100); TROPONIN I 0.027 ng/mL
[2018-12-03 07:33] LABS: GLUCOSE 69 mg/dL (75-110)
[2018-12-03] MEDS ORDERED: FAMOTIDINE 20 MG TABLET PO SCH (10:00)
[2018-12-03] MEDS: DOCUSATE SODIUM 100 MG CAPSULE PO SCH ×2 (10:53→17:36)
[2018-12-03] MEDS: POTASSIUM CHLORIDE 10 MEQ CAPSULE.ER PO SCH ×2 (11:38→17:36)
--- NOTE | 2018-12-03 11:56 | Progress Note Acknowledgement ---
Progress Note Acknowledgement Progess Note Acknowledgement: I, the undersigned member of the medical staff with appropriate privileges and with supervisory authority over [ PAC], a dependent practice allied health professional, acknowledge that I have reviewed the progress notes entered on this patient, and in my professional judgment believe that the assessment made and/or any care evidenced was appropriate
--- NOTE | 2018-12-03 12:07 | PDOC PROGRESS REPORT ---
Subjective Progress Note for:: 12/03/18 Subjective:: Patient admitted night at 2300 hrs. for 1 to 2 weeks of shortness of breath. Patient states he kept telling providers that there was something wrong and finally into the emergency room as of increased shortness of breath agraffe patient's BNP when he got here was 23,000, chest x-ray showing blunting of the costophrenic angles and increased opacity at the lower lungs level pleural fluid Reason For Visit: ACUTE RESPIRATORY FAILURE WITH HYPOXIA,ACUTE ON Physical Exam Vital Signs: Temp Pulse Resp BP Pulse Ox 97.0 F 61 18 113/55 L 96 12/03/18 04:07 12/03/18 04:07 12/03/18 04:07 12/03/18 04:07 12/03/18 04:07 Intake & Output 12/02/18 12/03/18 12/04/18 06:59 06:59 06:59 Intake Total 260 Output Total 1475 Balance -1215 Weight 70.3 kg General appearance: PRESENT: mild distress, other - Patient mildly short of breath with talking Respiratory exam: PRESENT: crackles Cardiovascular exam: PRESENT: RRR, systolic murmur. ABSENT: diastolic murmur, r ubs Neurological exam: PRESENT: alert, awake, oriented to person, oriented to place, oriented to time, oriented to situation, CN II-XII grossly intact. ABSENT: motor sensory deficit Psychiatric exam: PRESENT: appropriate affect, normal mood, other - Very pleasant. ABSENT: homicidal ideation, suicidal ideation Results Laboratory Results: 12/03/18 06:51 12/03/18 06:51 12/02/18 12/02/18 12/02/18 18:31 18:31 18:31 WBC 6.5 RBC 3.81 L Hgb 11.3 L Hct 35.1 L MCV 92 MCH 29.6 MCHC 32.2 RDW 19.9 H Plt Count 113 L Seg Neutrophils % 77.0 Carbonic Acid HCO3/H2CO3 Ratio ABG pH ABG pCO2 ABG pO2 ABG HCO3 ABG O2 Saturation ABG Base Excess FiO2 Sodium 145.9 H Potassium 3.8 Chloride 104 Carbon Dioxide 35 H Anion Gap 7 BUN 34 H Creatinine 1.90 H Est GFR ( Amer) 41 L Glucose 94 Calcium 9.4 Magnesium Total Bilirubin 1.3 AST 24 Alkaline Phosphatase 67 Total Protein 7.4 Albumin 3.8 Triglycerides Cholesterol LDL Cholesterol Direct VLDL Cholesterol HDL Cholesterol TSH Free T4 1.35 Free T3 pg/mL 1.96 L Urine Color Urine Appearance Urine pH Ur Specific [place] Urine Protein Urine Glucose (UA) Urine Ketones Urine Blood Urine Nitrite Ur Leukocyte Esterase Urine WBC (Auto) Urine RBC (Auto) 12/02/18 12/02/18 12/03/18 19:29 21:30 06:51 WBC 7.2 RBC 3.79 L Hgb 11.3 L Hct 34.9 L MCV 92 MCH 29.8 MCHC 32.4 RDW 19.9 H Plt Count 107 L Seg Neutrophils % Carbonic Acid 1.31 HCO3/H2CO3 Ratio 22:1 ABG pH 7.45 ABG pCO2 43.6 ABG pO2 119.7 H ABG HCO3 29.7 H ABG O2 Saturation 98.5 H ABG Base Excess 5.1 FiO2 80% Sodium Potassium Chloride Carbon Dioxide Anion Gap BUN Creatinine Est GFR ( Amer) Glucose Calcium Magnesium Total Bilirubin AST Alkaline Phosphatase Total Protein Albumin Triglycerides Cholesterol LDL Cholesterol Direct VLDL Cholesterol HDL Cholesterol TSH Free T4 Free T3 pg/mL Urine Color YELLOW Urine Appearance CLEAR Urine pH 6.0 Ur Specific [place] 1.012 Urine Protein 100 H Urine Glucose (UA) NEGATIVE Urine Ketones NEGATIVE Urine Blood SMALL H Urine Nitrite NEGATIVE Ur Leukocyte Esterase NEGATIVE Urine WBC (Auto) 2 Urine RBC (Auto) 2 12/03/18 12/03/18 06:51 06:51 WBC RBC Hgb Hct MCV MCH MCHC RDW Plt Count Seg Neutrophils % Carbonic Acid HCO3/H2CO3 Ratio ABG pH ABG pCO2 ABG pO2 ABG HCO3 ABG O2 Saturation ABG Base Excess FiO2 Sodium 146.1 H Potassium 3.3 L Chloride 103 Carbon Dioxide 35 H Anion Gap 8 BUN 33 H Creatinine 1.84 H Est GFR ( Amer) 43 L Glucose 69 L Calcium 9.2 Magnesium 2.2 Total Bilirubin AST Alkaline Phosphatase Total Protein Albumin Triglycerides 67 Cholesterol 108.74 LDL Cholesterol Direct 61 VLDL Cholesterol 13.0 HDL Cholesterol 36 L TSH 1.47 Free T4 Free T3 pg/mL Urine Color Urine Appearance Urine pH Ur Specific [place] Urine Protein Urine Glucose (UA) Urine Ketones Urine Blood Urine Nitrite Ur Leukocyte Esterase Urine WBC (Auto) Urine RBC (Auto) 12/02/18 12/02/18 12/02/18 18:31 18:31 18:31 Creatine Kinase 41 L CK-MB (CK-2) 1.21 Troponin I 0.023 NT-Pro-B Natriuret Pep [id number] H 12/03/18 12/03/18 12/03/18 01:00 01:00 06:51 Creatine Kinase 33 L 36 L CK-MB (CK-2) 1.08 Troponin I 0.022 NT-Pro-B Natriuret Pep 12/03/18 06:51 Creatine Kinase CK-MB (CK-2) 1.29 Troponin I 0.027 NT-Pro-B Natriuret Pep Impressions: Chest X-Ray 12/02/18 00:00 IMPRESSION: Blunted costophrenic angles and increased opacity at the lower lungs could represent a combination of pleural fluid and atelectasis. Recommend follow-up. Cardiac silhouette is enlarged which could be secondary to cardiomegaly. Assessment and Plan - Diagnosis (1) Congestive heart failure Qualifiers: Heart failure type: unspecified Heart failure chronicity: acute on chronic Qualified Code(s): I50.9 - Heart failure, unspecified Is this a current diagnosis for this admission?: Yes Plan: Patient's BNP is elevated appears to be in acute congestive heart failure possibly on chronic x-ray shows pleural lipid, probably edema. 4 doses. Electrolytes will be checked regularly. Patient is feeling better than when admitted this morning. No signs of peripheral edema (2) Weakness Is this a current diagnosis for this admission?: Yes Plan: This is secondary to his congestive heart failure these had ongoing now for the last 2 weeks other reyes he is not weak. (3) Hypoxia Is this a current diagnosis for this admission?: Yes Plan: Patient was admitted his O2 sats being maintained by 5 L of oxygen at 92%, weaning him down to 3 L he stayed at 96%, patient has BiPAP ordered as well as 2 L of nasal cannula - Time Time Spent with patient: 35 or more minutes
[2018-12-03 13:23] LABS: CREATINE KINASE MB 1.5 ng/mL (<4.55); TROPONIN I 0.026 ng/mL
[2018-12-04] MEDS ORDERED: DIGOXIN INJ 0.5 MG/2 ML AMPULE IV ONE (05:17)
[2018-12-04] MEDS: PANTOPRAZOLE SODIUM 20 MG TABLET.DR PO SCH (05:32)
[2018-12-04] MEDS: NITROGLYCERIN 2% OINTMENT 1 GM PACKET TP SCH (05:33)
[2018-12-04] MEDS: METOPROLOL TARTRATE PF/INJ 5 MG/5 ML SDV IV SCH ×3 (05:34→06:02)
[2018-12-04] MEDS: HEPARIN SOD (PORCINE) 5,000 UNIT/ML 1 ML VIAL SUBCUT SCH ×3 (05:48→21:50)
[2018-12-04] MEDS ORDERED: METOPROLOL SUCCINATE 50 MG TAB.SR.24H PO ONE (06:00)
[2018-12-04 07:07] LABS: HEMATOCRIT 33.1 % (37.9-51.0); HEMOGLOBIN 10.7 g/dL (13.5-17.0); MEAN CORPUSCULAR HEMOGLOBIN 29.5 pg (27.0-33.4); MEAN CORPUSCULAR HGB CONC 32.4 g/dL (32.0-36.0); MEAN CORPUSCULAR VOLUME 91 fl (80-97); PLATELET COUNT 107 10^3/uL (150-450); RED BLOOD COUNT 3.62 10^6/uL (4.35-5.55); RED CELL DISTRIBUTION WIDTH 19.4 % (11.5-14.0); WHITE BLOOD COUNT 6.7 10^3/uL (4.0-10.5)
[2018-12-04 07:36] LABS: ANION GAP 7 (5-19); BLOOD UREA NITROGEN 32 mg/dL (7-20); CALCIUM 8.8 mg/dL (8.4-10.2); CARBON DIOXIDE 37 mmol/L (22-30); CHLORIDE 101 mmol/L (98-107); GLUCOSE 89 mg/dL (75-110); POTASSIUM 3.4 mmol/L (3.6-5.0)
[2018-12-04] MEDS: HYDRALAZINE HCL INJ/PF 20 MG/1 ML SDV IV PRN (08:07)
--- NOTE | 2018-12-04 09:29 | PDOC PROGRESS REPORT ---
Subjective Progress Note for:: 12/04/18 Subjective:: Patient admitted night at 2300 hrs. for 1 to 2 weeks of shortness of breath. Patient states he kept telling providers that there was something wrong and finally into the emergency room as of increased shortness of breath patient's BNP when he got here was 23,000, chest x-ray showing blunting of the costophrenic angles and increased opacity at the lower lungs level pleural fluid 12/04/2018 patient's BNP yesterday had gone down slightly, to 19,400 chest x-ray from today is pending CBC is normal electrolytes show the potassium to be stable at 3.4 patient is getting 20 mEq twice daily Patient's IV Lasix will be discontinued today after 4 IV doses, he will be s witched to p.o. Lasix 40 mg a day his home medicines were also added to his regimen today. She does complain of constipation and this will be addressed. Patient lives in [place] with his and his daughter lives close by if patient's chest x-ray and clinically he continues to improve we will consider discharging tomorrow morning. .he denies chest pain morning as well as he states he is significantly improved over admission Reason For Visit: ACUTE RESPIRATORY FAILURE WITH HYPOXIA,ACUTE ON Physical Exam Vital Signs: Temp Pulse Resp BP Pulse Ox 99.1 F 63 20 165/53 H 100 12/04/18 07:14 12/04/18 07:14 12/04/18 07:14 12/04/18 07:14 12/04/18 07:14 Intake & Output 12/03/18 12/04/18 12/05/18 06:59 06:59 06:59 Intake Total 260 1320 Output Total 1475 1415 Balance -121 -4844 Weight 70.3 kg 69.7 kg General appearance: PRESENT: no acute distress, other - Sitting up in the chair talking in full sentences Respiratory exam: PRESENT: crackles, other - Both bases but only minimal Cardiovascular exam: PRESENT: RRR. ABSENT: diastolic murmur, rubs, systolic murmur Neurological exam: PRESENT: alert, awake, oriented to person, oriented to place, oriented to time, oriented to situation, CN II-XII grossly intact. ABSENT: motor sensory deficit Psychiatric exam: PRESENT: appropriate affect, normal mood, other - he is in good spirits we talked about possibly discharging tomorrow based on how he is clinically. ABSENT: homicidal ideation, suicidal ideation Results Laboratory Results: 12/04/18 06:11 12/04/18 06:11 12/04/18 12/04/18 06:11 06:11 WBC 6.7 RBC 3.62 L Hgb 10.7 L Hct 33.1 L MCV 91 MCH 29.5 MCHC 32.4 RDW 19.4 H Plt Count 107 L Sodium 145.0 Potassium 3.4 L Chloride 101 Carbon Dioxide 37 H Anion Gap 7 BUN 32 H Creatinine 1.83 H Est GFR ( Amer) 43 L Glucose 89 Calcium 8.8 Magnesium 2.0 12/02/18 12/02/18 12/02/18 18:31 18:31 18:31 Creatine Kinase 41 L CK-MB (CK-2) 1.21 Troponin I 0.023 NT-Pro-B Natriuret Pep [id number] H 12/03/18 12/03/18 12/03/18 01:00 01:00 06:51 Creatine Kinase 33 L 36 L CK-MB (CK-2) 1.08 Troponin I 0.022 NT-Pro-B Natriuret Pep 12/03/18 12/03/18 12/03/18 06:51 12:44 12:44 Creatine Kinase 41 L CK-MB (CK-2) 1.29 1.50 Troponin I 0.027 0.026 NT-Pro-B Natriuret Pep 12/03/18 12:44 Creatine Kinase CK-MB (CK-2) Troponin I NT-Pro-B Natriuret Pep [id number] H Impressions: Chest X-Ray 12/02/18 00:00 IMPRESSION: Blunted costophrenic angles and increased opacity at the lower lungs could represent a combination of pleural fluid and atelectasis. Recommend follow-up. Cardiac silhouette is enlarged which could be secondary to cardiomegaly. Assessment and Plan - Diagnosis (1) Congestive heart failure Qualifiers: Heart failure type: unspecified Heart failure chronicity: acute on chronic Qualified Code(s): I50.9 - Heart failure, unspecified Is this a current diagnosis for this admission?: Yes Plan: Patient's BNP is elevated appears to be in acute congestive heart failure possibly on chronic x-ray shows pleural lipid, probably edema. 4 doses. Electrolytes will be checked regularly. Patient is feeling better than when admitted this morning. No signs of peripheral edema 12/03/2018 chest x-ray is pending from this morning, EKG is pending from this morning. Patient has no chest pain. Since BNP was down yesterday from admission. Changing over today from IV Lasix to p.o. Lasix (2) Weakness Is this a current diagnosis for this admission?: Yes Plan: This is secondary to his congestive heart failure these had ongoing now for the last 2 weeks other reyes he is not weak. 12 03 18 patient is up and ambulatory on his own walking from chair to the bathroom patient does have nasal oxygen reportedly at 4 L with 100% sat we will try to wean down to 2 patient does not appear to be weak (3) Hypoxia Is this a current diagnosis for this admission?: Yes Plan: Patient was admitted his O2 sats being maintained by 5 L of oxygen at 92%, weaning him down to 3 L he stayed at 96%, patient has BiPAP ordered as well as 2 L of nasal cannula 12/03/2018 patient is now at 4 L nasal cannula 100% we will try to wean him down today. We will check about home O2 although he probably will not need this. Chest x-ray from follow-up 2 days ago is pending from today (4) CAD (coronary artery disease) Is this a current diagnosis for this admission?: Yes Plan: She did have 3 stents placed due to coronary artery disease about 3 years ago down in [place] December 04/2019. No complaints of chest pain. Shortness of breath is significantly improved. Home meds were added today fluting diltiazem as well as metoprolol - Time Time Spent with patient: 25-34 minutes
[2018-12-04] MEDS: POTASSIUM CHLORIDE 10 MEQ CAPSULE.ER PO SCH ×2 (10:02→17:00)
[2018-12-04] MEDS: FINASTERIDE 5 MG TABLET PO SCH (10:03)
[2018-12-04] MEDS: FUROSEMIDE 40 MG TABLET PO SCH (10:03)
[2018-12-04] MEDS: DOCUSATE SODIUM 100 MG CAPSULE PO SCH ×2 (10:03→17:00)
[2018-12-04] MEDS: DILTIAZEM HCL 240 MG CAPSULE.CR PO SCH (10:04)
[2018-12-04] MEDS: METOPROLOL SUCCINATE 50 MG TAB.SR.24H PO SCH (10:04)
[2018-12-04] MEDS: NITROGLYCERIN 0.4 MG/TAB 25 TAB/BOTTLE SL PRN ×2 (14:25→14:39)
[2018-12-04] MEDS ORDERED: NITROGLYCERIN 0.4 MG/TAB 25 TAB/BOTTLE ONE (14:27)
[2018-12-04] MEDS: MORPHINE SULFATE 10 MG/ML INJ IV PRN ×2 (14:35→14:45)
[2018-12-04] MEDS ORDERED: LORAZEPAM INJ 2 MG/1 ML VIAL ONE (14:52)
[2018-12-04] MEDS ORDERED: LORAZEPAM INJ 2 MG/1 ML VIAL IV ONE (15:30)
[2018-12-04] MEDS ORDERED: ACETAMINOPHEN 325 MG SUPP.RECT PR ONE (15:32)
[2018-12-04] MEDS ORDERED: ACETAMINOPHEN 650 MG SUPP.RECT PR PRN (15:34)
[2018-12-04 15:36] LABS: CREATINE KINASE MB 1.92 ng/mL (<4.55); TROPONIN I 0.071 ng/mL
[2018-12-04] MEDS ORDERED: VANCOMYCIN HCL 0 MG in DEXTROSE 5%-WATER 250 ML IV NR (16:00)
--- NOTE | 2018-12-04 16:20 | ADVANCED CARE ---
- Diagnosis (1) Congestive heart failure Diagnosis Current: Yes (2) Weakness Diagnosis Current: Yes (3) Hypoxia Diagnosis Current: Yes (4) CAD (coronary artery disease) Diagnosis Current: Yes Attendance: In attendance in the room were the of 68 years the daughter and Eliane the nurse as well as Elli the nurse, also Dr. Muahmmad came to see the patient. Resuscitation Status: Do Not Resuscitate Discussion: Multiple labs were drawn including stat cardiac enzymes stat d-dimer respiratory therapy was consulted once it was determined that the patient now had a fever whereas prior he did not working diagnosis of sepsis was made and the patient was transferred to [facility]. Patient had IV antibiotic started as well as given nitro x2 morphine IV as well as Ativan IV. Complicating matters was the fact that the patient has a history of anxiety and according to the daughter the patient has had these episodes many times, es pecially at night where he would keep his up night with the same type of behavior Care Planning Goals: Will be transferred to higher level care and started on IV antibiotics pending culture results Time Spent: 1 hour was spent in the room and or discussing the case
--- NOTE | 2018-12-04 16:32 | RADIOLOGY REPORT (SQ) ---
EXAM DESCRIPTION: CHEST SINGLE VIEW COMPLETED DATE/TIME: 12/04/2018 4:13 pm REASON FOR STUDY: sepsis, SOB COMPARISON: 12/02/2018 EXAM PARAMETERS: NUMBER OF VIEWS: One view. TECHNIQUE: Single frontal radiographic view of the chest acquired. RADIATION DOSE: NA LIMITATIONS: None. FINDINGS: Stable AP portable examination with small bilateral pleural effusions and bibasilar hetero geneous opacity. Gross cardiomegaly. IMPRESSION: Stable AP portable examination with small bilateral pleural effusions and bibasilar hete rogeneous opacity. Gross cardiomegaly. TECHNICAL DOCUMENTATION: JOB ID: [id number] [employer]- All Rights Reserved Reading location - IP/workstation name: [email or web address]
[2018-12-04] MEDS ORDERED: CEFTRIAXONE 1 GM/D5W RTU 1 GM/50 ML RTUPB IV SCH (17:00)
--- NOTE | 2018-12-04 18:33 | Progress Note ---
Provider Note Provider Note: Patient was made a DO NOT RESUSCITATE today 12/04/2018.
--- NOTE | 2018-12-04 18:48 | EKG REPORT ---
SEVERITY:- ABNORMAL ECG - ATRIAL FIBRILLATION RIGHT BUNDLE BRANCH BLOCK : Confirmed by: Cortez Watts 04-Dec-2018 18:47:23
--- NOTE | 2018-12-04 18:48 | EKG REPORT ---
SEVERITY:- ABNORMAL ECG - ATRIAL FIBRILLATION RBBB AND LPFB ST DEPRESSION, CONSIDER ISCHEMIA, ANT-LAT LDS : Confirmed by: Cortez Watts 04-Dec-2018 18:47:17
[2018-12-04] MEDS ORDERED: VANCOMYCIN HCL INJ 1000 MG VIAL ONE (18:58)
[2018-12-04] MEDS: VANCOMYCIN HCL 750 MG in DEXTROSE 5%-WATER 250 ML IV SCH (19:45)
[2018-12-04] MEDS ORDERED: RINGERS SOLUTION,LACTATED 1,000 ML IV ONE (21:15)
[2018-12-04] MEDS ORDERED: DOPAMINE HCL/DEXTROSE 5%-WATER 800 MG/250 ML RTUINJ IV PRN (21:35)
[2018-12-04 21:38] LABS: CREATINE KINASE MB 0.85 ng/mL (<4.55)
[2018-12-04 21:43] LABS: TROPONIN I 0.143 ng/mL
[2018-12-04] MEDS ORDERED: DOPAMINE HCL/DEXTROSE 5%-WATER 800 MG/250 ML RTUINJ IV ONE (21:43)
[2018-12-04] MEDS: RINGERS SOLUTION,LACTATED 1,000 ML IV PRN (21:49)
[2018-12-04 21:51] LABS: APPEARANCE,URINE CLEAR; BILIRUBIN,URINE NEGATIVE (NEGATIVE); COLOR,URINE YELLOW; GLUCOSE, URINE NEGATIVE (NEGATIVE); KETONES,URINE NEGATIVE (NEGATIVE); LEUKOCYTE ESTERASE,URINE NEGATIVE (NEGATIVE); NITRITE,URINE NEGATIVE (NEGATIVE); PROTEIN,URINE 100 mg/dL (NEGATIVE); URINE SPECIFIC GRAVITY 1.011; UROBILINOGEN,URINE NEGATIVE mg/dL (<2.0)
[2018-12-04] MEDS ORDERED: MEROPENEM 1 GM VIAL IV PRN (22:00)
[2018-12-04] MEDS ORDERED: MEROPENEM 1 GM VIAL ONE (22:07)
[2018-12-04] MEDS: MEROPENEM 1 GM in NORMAL SALINE 50 ML IV SCH (22:21)
[2018-12-05 03:30] LABS: CREATINE KINASE MB 1.33 ng/mL (<4.55); TROPONIN I 0.105 ng/mL
[2018-12-05] MEDS ORDERED: MEROPENEM 1 GM VIAL ONE (03:57)
[2018-12-05] MEDS: RINGERS SOLUTION,LACTATED 1,000 ML IV PRN ×3 (03:59→19:54)
[2018-12-05] MEDS: MEROPENEM 1 GM in NORMAL SALINE 50 ML IV SCH ×3 (05:12→21:53)
[2018-12-05] MEDS: HEPARIN SOD (PORCINE) 5,000 UNIT/ML 1 ML VIAL SUBCUT SCH ×3 (05:16→21:53)
[2018-12-05] MEDS: PANTOPRAZOLE SODIUM 20 MG TABLET.DR PO SCH (05:17)
[2018-12-05 07:47] LABS: ABSOLUTE EOSINOPHILS # (AUTO) 0.1 10^3/uL (0.0-0.6); ABSOLUTE NEUT (AUTO) 8.8 10^3/uL (1.7-8.2); BASOPHILS % (AUTO) 0.2 % (0-2); EOSINOPHILS % (AUTO) 0.5 % (0-6); HEMATOCRIT 31.1 % (37.9-51.0); HEMOGLOBIN 10.3 g/dL (13.5-17.0); MEAN CORPUSCULAR HEMOGLOBIN 30.4 pg (27.0-33.4); MEAN CORPUSCULAR VOLUME 92 fl (80-97); MONOCYTES % (AUTO) 9.5 % (3-13); PLATELET COUNT 102 10^3/uL (150-450); RED BLOOD COUNT 3.38 10^6/uL (4.35-5.55); RED CELL DISTRIBUTION WIDTH 19.2 % (11.5-14.0); SEGMENTED NEUTROPHILS % (AUTO) 80.8 % (42-78); TOTAL CELLS COUNTED % (AUTO) 100 %; WHITE BLOOD COUNT 10.9 10^3/uL (4.0-10.5)
[2018-12-05 08:13] LABS: ANION GAP 6 (5-19); BLOOD UREA NITROGEN 34 mg/dL (7-20); CALCIUM 8.7 mg/dL (8.4-10.2); CARBON DIOXIDE 32 mmol/L (22-30); CHLORIDE 106 mmol/L (98-107); GLUCOSE 75 mg/dL (75-110); POTASSIUM 3.5 mmol/L (3.6-5.0)
[2018-12-05] MEDS ORDERED: ONDANSETRON 4 MG TAB.RAPDIS PO PRN (09:00)
[2018-12-05] MEDS ORDERED: ONDANSETRON HCL INJ/PF 4 MG/2 ML SDV IV PRN (09:00)
[2018-12-05] MEDS: POTASSIUM CHLORIDE 10 MEQ CAPSULE.ER PO SCH ×2 (09:59→17:31)
[2018-12-05] MEDS: FUROSEMIDE 40 MG TABLET PO SCH (09:59)
[2018-12-05] MEDS: FINASTERIDE 5 MG TABLET PO SCH (10:00)
[2018-12-05] MEDS: DOCUSATE SODIUM 100 MG CAPSULE PO SCH ×2 (10:00→17:31)
[2018-12-05] MEDS: METOPROLOL SUCCINATE 50 MG TAB.SR.24H PO SCH (10:00)
[2018-12-05] MEDS: DILTIAZEM HCL 240 MG CAPSULE.CR PO SCH (10:00)
--- NOTE | 2018-12-05 12:57 | RADIOLOGY REPORT (SQ) ---
EXAM DESCRIPTION: NM LUNG VENT/PERF SCAN COMPLETED DATE/TIME: 12/05/2018 11:25 am REASON FOR STUDY: HYPOXIA, SOB COMPARISON: Chest radiograph, 12/04/2018 RADIONUCLIDE AND DOSE: 5.4 millicuries TC-99m MAA Intravenous 31.1 millicuries TC-99m DTPA Inhaled aerosol TECHNIQUE: Eight views of the lungs acquired post ventilation of DTPA aerosol. Eight matching views of the lungs acquired following injection of MAA. LIMITATIONS: None. FINDINGS: VENTILATION: Very heterogeneous ventilation, limited by bronchial clumping and inability t o maintain mask seal. PERFUSION: Perfusion images with normal homogenous activity and no wedge-shaped or segmental defects. Bibasilar blunting and pleural fluid. No ventilation-perfusion mismatches. OTHER: Gross cardiomegaly. IMPRESSION: Limited ventilation examination. No significant perfusion defect. Findings are consist ent with radiographic findings of pleural effusions and cardiomegaly. Low probability examination fo r pulmonary embolism by modified PIOPED criteria. TECHNICAL DOCUMENTATION: JOB ID: [id number] [employer]- All Rights Reserved Reading location - IP/workstation name: [email or web address]
--- NOTE | 2018-12-05 15:40 | PDOC PROGRESS REPORT ---
Subjective Progress Note for:: 12/05/18 Subjective:: Patient admitted night at 2300 hrs. for 1 to 2 weeks of shortness of breath. Patient states he kept telling providers that there was something wrong and finally into the emergency room as of increased shortness of breath patient's BNP when he got here was 23,000, chest x-ray showing blunting of the costophrenic angles and increased opacity at the lower lungs level pleural fluid 12/04/2018 patient's BNP yesterday had gone down slightly, to 19,400 chest x-ray from today is pending CBC is normal electrolytes show the potassium to be stable at 3.4 patient is getting 20 mEq twice daily Patient's IV Lasix will be discontinued today after 4 IV doses, he will be s witched to p.o. Lasix 40 mg a day his home medicines were also added to his regimen today. She does complain of constipation and this will be addressed. Patient lives in [place] with his and his daughter lives close by if patient's chest x-ray and clinically he continues to improve we will consider discharging tomorrow morning. .he denies chest pain morning as well as he states he is significantly improved over admission 12/05/2018 since yesterday morning's note the patient became apparently septic and possibly suffered myocardial ischemia as a result of the sepsis. Yesterday afternoon patient became febrile and started to have Reiger's and chills and sweats she went up to 101.2 had been 97.8 patient was moaning but not from pain more from not being able to breathe according to the patient to complicate matters patient has a history of anxiety and his daughter was saying that he is done something similar to this in the past Troponins have been elevated x3 although the third troponin is trending down. Dr. Muhammad saw the patient yesterday and examined the patient and at that time felt it was probably not cardiac. Patient's d-dimer was elevated as one would expect and we tried to do a CT angiogram but because of his marginal renal functions we change it to a VQ scan. This did not show any evidence of a PE. Her graph last night patient had to be put on pressors and this morning and today looks remarkably better. Patient's blood pressure is maintaining around 120/70 patient is awake and alert. Apoorva had a long discussion with the family today well as last night. They know he still not out of the torres but certainly he is pulled through this first event patient is currently on IV antibiotics now, meropenem and vancomycin, cultures are pending Reason For Visit: ACUTE RESPIRATORY FAILURE WITH HYPOXIA,ACUTE ON Physical Exam Vital Signs: Temp Pulse Resp BP Pulse Ox 97.6 F 80 16 143/68 H 91 L 12/05/18 12:54 12/05/18 14:00 12/05/18 12:54 12/05/18 14:00 12/05/18 13:55 Intake & Output 12/04/18 12/05/18 12/06/18 06:59 06:59 06:59 Intake Total 1320 2760 1050 Output Total 3675 900 Balance -2355 1860 1050 Weight 69.7 kg 71.5 kg General appearance: PRESENT: no acute distress, other - Afternoon patient is sitting up in bed talking to me smiling Respiratory exam: PRESENT: clear to auscultation nigel. ABSENT: rales, rhonchi, wheezes Cardiovascular exam: PRESENT: RRR. ABSENT: diastolic murmur, rubs, systolic murmur Neurological exam: PRESENT: alert, awake, oriented to person, oriented to place, oriented to time, oriented to situation, CN II-XII grossly intact. ABSENT: motor sensory deficit Psychiatric exam: PRESENT: appropriate affect, normal mood, other - No sign of agitation or anxiety. ABSENT: homicidal ideation, suicidal ideation Results Laboratory Results: 12/05/18 06:40 12/05/18 06:40 12/04/18 12/05/18 12/05/18 20:00 06:40 06:40 WBC 10.9 H RBC 3.38 L Hgb 10.3 L Hct 31.1 L MCV 92 MCH 30.4 MCHC 33.0 RDW 19.2 H Plt Count 102 L Seg Neutrophils % 80.8 H Sodium 144.2 Potassium 3.5 L Chloride 106 Carbon Dioxide 32 H Anion Gap 6 BUN 34 H Creatinine 1.81 H Est GFR ( Amer) 43 L Glucose 75 Lactic Acid Calcium 8.7 Magnesium 2.0 Urine Color YELLOW Urine Appearance CLEAR Urine pH 6.0 Ur Specific [place] 1.011 Urine Protein 100 H Urine Glucose (UA) NEGATIVE Urine Ketones NEGATIVE Urine Blood MODERATE H Urine Nitrite NEGATIVE Ur Leukocyte Esterase NEGATIVE Urine WBC (Auto) 7 Urine RBC (Auto) 13 12/05/18 14:02 WBC RBC Hgb Hct MCV MCH MCHC RDW Plt Count Seg Neutrophils % Sodium Potassium Chloride Carbon Dioxide Anion Gap BUN Creatinine Est GFR ( Amer) Glucose Lactic Acid 1.0 Calcium Magnesium Urine Color Urine Appearance Urine pH Ur Specific [place] Urine Protein Urine Glucose (UA) Urine Ketones Urine Blood Urine Nitrite Ur Leukocyte Esterase Urine WBC (Auto) Urine RBC (Auto) 12/02/18 12/02/18 12/02/18 18:31 18:31 18:31 Creatine Kinase 41 L CK-MB (CK-2) 1.21 Troponin I 0.023 NT-Pro-B Natriuret Pep [id number] H 12/03/18 12/03/18 12/03/18 01:00 01:00 06:51 Creatine Kinase 33 L 36 L CK-MB (CK-2) 1.08 Troponin I 0.022 NT-Pro-B Natriuret Pep 12/03/18 12/03/18 12/03/18 06:51 12:44 12:44 Creatine Kinase 41 L CK-MB (CK-2) 1.29 1.50 Troponin I 0.027 0.026 NT-Pro-B Natriuret Pep 12/03/18 12/04/18 12/04/18 12:44 15:00 15:00 Creatine Kinase 52 L CK-MB (CK-2) 1.92 Troponin I 0.071 NT-Pro-B Natriuret Pep [id number] H 12/04/18 12/04/18 12/05/18 20:45 20:45 02:50 Creatine Kinase 51 L 61 CK-MB (CK-2) 0.85 Troponin I 0.143 NT-Pro-B Natriuret Pep 12/05/18 02:50 Creatine Kinase CK-MB (CK-2) 1.33 Troponin I 0.105 NT-Pro-B Natriuret Pep Impressions: Chest X-Ray 12/04/18 00:00 IMPRESSION: Stable AP portable examination with small bilateral pleural effusions and bibasilar heterogeneous opacity. Gross cardiomegaly. Lung Scan-VQ NM 12/05/18 00:00 IMPRESSION: Limited ventilation examination. No significant perfusion defect. Findings are consistent with radiographic findings of pleural effusions and cardiomegaly. Low probability examination for pulmonary embolism by modified PIOPED criteria. Assessment and Plan - Diagnosis (1) Congestive heart failure Qualifiers: Heart failure type: unspecified Heart failure chronicity: acute on chronic Qualified Code(s): I50.9 - Heart failure, unspecified Is this a current diagnosis for this admission?: Yes Plan: Patient's BNP is elevated appears to be in acute congestive heart failure possibly on chronic x-ray shows pleural lipid, probably edema. 4 doses. Electrolytes will be checked regularly. Patient is feeling better than when admitted this morning. No signs of peripheral edema 12/03/2018 chest x-ray is pending from this morning, EKG is pending from this morning. Patient has no chest pain. Since BNP was down yesterday from admission. Changing over today from IV Lasix to p.o. Lasix 12/04/2018 she looks remarkably well this morning, no chest pain. No significant shortness of breath talking about may be going home tomorrow 12/05/2018 please see the previous note concerning history of present illness patient appears to be doing much better than yesterday afternoon,, patient is currently on Lasix 40 mg p.o. daily, as well as dopamine 3 mics (2) Weakness Is this a current diagnosis for this admission?: Yes Plan: This is secondary to his congestive heart failure these had ongoing now for the last 2 weeks other reyes he is not weak. 9 10 14 patient is up and ambulatory on his own walking from chair to the bathroom patient does have nasal oxygen reportedly at 4 L with 100% sat we will try to wean down to 2 patient does not appear to be weak 12/04/2018 patient looks much stronger this morning and I anticipate sending him home either later today or tomorrow morning, probably tomorrow patient is sitting up in a chair, no sign of obvious weakness 12/05/2018 patient has recovered from his acute hypoxic, hypotensive event that he sustained yesterday afternoon and last night. Patient is weak enough now to where he could not get out of bed and sit in a chair by himself as he was doing yesterday morning patient has very little reserves prior to coming into the [facility] for this event he just gone through a bout of shingles (3) Hypoxia Is this a current diagnosis for this admission?: Yes Plan: Patient was admitted his O2 sats being maintained by 5 L of oxygen at 92%, weaning him down to 3 L he stayed at 96%, patient has BiPAP ordered as well as 2 L of nasal cannula 12/03/2018 patient is now at 4 L nasal cannula 100% we will try to wean him down today. We will check about home O2 although he probably will not need this. Chest x-ray from follow-up 2 days ago is pending from today 12/04/2018 2 saturations are running in the upper 90s by 3 L of nasal cannula patient is able to talk in full sentences 12/05/2018 patient had to be put on BiPAP yesterday afternoon and last night just to maintain his saturations, however this afternoon he is off the BiPAP and back on nasal cannula (4) CAD (coronary artery disease) Is this a current diagnosis for this admission?: Yes Plan: She did have 3 stents placed due to coronary artery disease about 3 years ago down in [place] December 04/2019. No complaints of chest pain. Shortness of breath is significantly improved. Home meds were added today fluting diltiazem as well as metoprolol 12/05/2018 even yesterday's afternoon event the patient never complained of chest pain. Patient has no chest pain today. Patient has been seen by Dr. Muhammad and I will ask him to come by and see the patient again today (5) Sepsis Is this a current diagnosis for this admission?: Yes Plan: Patient is now on meropenem and vancomycin IV this is day 2 patient's white count today is 10.9 urine culture and blood cultures are both pending , at the present time it is approximately 1600 hrs. and patient does not appear to be septic. Certainly the did yesterday afternoon and last night - Time Time Spent with patient: 35 or more minutes
--- NOTE | 2018-12-05 15:58 | ADVANCED CARE ---
- Diagnosis (1) Congestive heart failure Diagnosis Current: Yes (2) Weakness Diagnosis Current: Yes (3) Hypoxia Diagnosis Current: Yes (4) CAD (coronary artery disease) Diagnosis Current: Yes (5) Sepsis Diagnosis Current: Yes Resuscitation Status: Do Not Resuscitate Discussion: Last night at approximately midnight I came in to see the patient and spent over 1 hour talking to the daughter as well as the son-in-law. Patient was going through a acute septic event and had to be maintained on vasopressors ,dopamine Because patient had elevated d-dimer and because he was tachycardic and hypotensive and febrile it was felt that a PE needed to be ruled out and I was trying to get a CT angiogram performed, patient however was too unstable to go downstairs I canceled the CT angiogram last night and today ordered a VQ scan which was negative for PE Today on 12/05/2018 I once again have spent 30 minutes with the family and the patient talking about his episode yesterday, and the different scenarios that could have occurred to cause that. Patient and the family are very appreciative of the care Care Planning Goals: We will try to wean patient off of pressors continue IV antibiotics, continue to monitor patient for CHF
[2018-12-05] MEDS: VANCOMYCIN HCL 750 MG in DEXTROSE 5%-WATER 250 ML IV SCH (16:18)
--- NOTE | 2018-12-05 22:43 | Progress Note ---
Provider Note Provider Note: CARDIOLOGY PROGRESS NOTE by Dr. Evette Muhammad on 12/04/2018. SUBJECTIVE: The patient complained of feeling very cold and had chills and Reiger's, and subsequently developed a temperature. Subsequently the patient complained of being severely short of breath. His lungs were clear without any rhonchi rales or wheezing. As per the daughter the the patient has known to do this before and has had paramedics checked him several times for these episodes of shortness of breath with no pathology found, and the daughter states that this episodes spontaneously subside in about an hour or a half. The patient denies any chest pain or discomfort. The patient continues to be in atrial fibrillation. As per the daughter the patient is a DNR. The patient's daughter has the power of attorney lawyer on the patient. Also she states that he a few months ago had fell and was admitted to [facility], and is warfarin was discontinued. This was due to the patient being high risk versus recurrent falls. Also his records were not noted and is echocardiogram in June 2018 showed a LV ejection fraction of 45%. During this episode the patient complaining of not being able to breathe his saturations were within normal limits, and his EKG showed right bundle branch block pattern with some secondary T wave changes. PHYSICAL EXAMINATION: The patient is of his stated age, he is well-groomed. He is in distress due to complaints of shortness of breath. Seems to be agitated. Selected Entries 12/04/18 12:47 Temperature 98.3 F Temperature Oral Source Pulse Rate 80 Respiratory 20 Rate Blood Pressure 120/46 L [Left Upper Arm ] Blood Pressure 70 Mean [Left Upper Arm] Blood Pressure Supine Position [Left Upper Arm] O2 Sat by Pulse 95 Oximetry Oxygen Delivery Nasal Cannula Method ( includes room air) Oxygen Flow 4 Rate HEAD: Is atraumatic normocephalic. EYES: Pupils equal round regular reactive light accommodation. Extraocular movements are normal. There is no conjunctival pallor. There is no scleral icterus. EARS: Tympanic membranes are intact. External auditory canals are clear. NOSE: There is no deviated nasal septum. There is no inflammation of these mucous membrane. MOUTH: Mucous membranes of the mouth are moist tongue is moist. There is no ulcers. There is no bleeding from the gums. THROAT: There is no redness of the oropharynx, there is no exudates in the throat. SKIN: Is without any skin lesions or skin rashes. There is no petechiae or ecchymosis. NECK: Is supple. There is no JVD. Carotids are equal there is no bruit. There is no lymphadenopathy. There is no goiter. There is no accessory muscle respiration use. Trachea central. LUNGS: Shows bilateral rales of CHF. There is also an area of absent breath sounds below the area of rales. HEART: S1-S2 is heard. S1 is of variable intensity. There is no S3 gallop. There is no S4 gallop. There is systolic murmur left sternal border and the apex. There is no rub. ABDOMEN: Is soft. There is no hepatospleno megaly. Bowel sounds well heard. EXTREMITIES: Femorals are diminished. There is no femoral bruits. There is mild pedal edema with chronic venous stasis dermatitis. Leg pulses are diminished. There is no sinus or cl ubbing. WIG MAKER: The patient is conscious awake alert oriented times with no focal deficits. PSYCHIATRIC: The patient judgment insight are intact his affect is normal. Labs- All tests 24 hr 12/04/18 12/04/18 12/04/18 06:11 06:11 15:00 WBC 6.7 RBC 3.62 L Hgb 10.7 L Hct 33.1 L MCV 91 MCH 29.5 MCHC 32.4 RDW 19.4 H Plt Count 107 L D-Dimer Sodium 145.0 Potassium 3.4 L Chloride 101 Carbon Dioxide 37 H Anion Gap 7 BUN 32 H Creatinine 1.83 H Est GFR ( Amer) 43 L Est GFR (MDRD) Non-Af 35 L Glucose 89 Calcium 8.8 Magnesium 2.0 Creatine Kinase 52 L CK-MB (CK-2) Troponin I Urine Color Urine Appearance Urine pH Ur Specific [place] Urine Protein Urine Glucose (UA) Urine Ketones Urine Blood Urine Nitrite Urine Bilirubin Urine Urobilinogen Ur Leukocyte Esterase Urine WBC (Auto) Urine RBC (Auto) Squamous Epi Cells Auto Urine Mucus (Auto) Urine Ascorbic Acid 12/04/18 12/04/18 12/04/18 15:00 15:00 20:00 WBC RBC Hgb Hct MCV MCH MCHC RDW Plt Count D-Dimer 2.16 H Sodium Potassium Chloride Carbon Dioxide Anion Gap BUN Creatinine Est GFR ( Amer) Est GFR (MDRD) Non-Af Glucose Calcium Magnesium Creatine Kinase CK-MB (CK-2) 1.92 Troponin I 0.071 Urine Color YELLOW Urine Appearance CLEAR Urine pH 6.0 Ur Specific [place] 1.011 Urine Protein 100 H Urine Glucose (UA) NEGATIVE Urine Ketones NEGATIVE Urine Blood MODERATE H Urine Nitrite NEGATIVE Urine Bilirubin NEGATIVE Urine Urobilinogen NEGATIVE Ur Leukocyte Esterase NEGATIVE Urine WBC (Auto) 7 Urine RBC (Auto) 13 Squamous Epi Cells Auto <1 Urine Mucus (Auto) RARE Urine Ascorbic Acid NEGATIVE 12/04/18 12/04/18 20:45 20:45 WBC RBC Hgb Hct MCV MCH MCHC RDW Plt Count D-Dimer Sodium Potassium Chloride Carbon Dioxide Anion Gap BUN Creatinine Est GFR ( Amer) Est GFR (MDRD) Non-Af Glucose Calcium Magnesium Creatine Kinase 51 L CK-MB (CK-2) 0.85 Troponin I 0.143 Urine Color Urine Appearance Urine pH Ur Specific [place] Urine Protein Urine Glucose (UA) Urine Ketones Urine Blood Urine Nitrite Urine Bilirubin Urine Urobilinogen Ur Leukocyte Esterase Urine WBC (Auto) Urine RBC (Auto) Squamous Epi Cells Auto Urine Mucus (Auto) Urine Ascorbic Acid Chest X-Ray 12/02/18 00:00 IMPRESSION: Blunted costophrenic angles and increased opacity at the lower lungs could represent a combination of pleural fluid and atelectasis. Recommend follow-up. Cardiac silhouette is enlarged which could be secondary to cardiomegaly. Chest X-Ray 12/04/18 00:00 IMPRESSION: Stable AP portable examination with small bilateral pleural effusions and bibasilar heterogeneous opacity. Gross cardiomegaly. IMPRESSION/RECOMMENDATION: 1. Acute on chronic left ventricular and right ventricle systolic heart failure: Failure seems to be compensated. Continue current treatment. 2. Complains of shortness of breath: Probably secondary to anxiety patient's physical examination is unremarkable. But will trend the patient's cardiac enzymes. 3. Coronary artery disease: History of stents x3. Patient denies history of DC. Will get records. There is no anginal symptoms. No evidence of acute coronary syndrome this admission. 4. Chronic atrial fibrillation: Note that the patient's heart rate seems to be controlled. Continue Coumadin as per PT/INR. Note that the patient's INR is subtherapeutic we discussed with the family and change the patient to Eliquis at 2.5 mg p.o. twice daily, instead of Coumadin. 5. Cardiomyopathy with moderately reduced LV ejection fraction. As mentioned earlier start the patient on a beta-anjel and MARY inhibitor. Note that the patient's medications are not known. We will get the patient's home medications prior to starting new medications. Explained as per daughter patient has a history of recurrent urinary tract infections. Medications reviewed. Discussed with the patient's daughter and the patient. Discussed with the hospitalist provider. Medical decision making is of moderate complexity. Will later check for the patient has fever since the patient had chills and Reiger's.. If the patient does develop fever then would recommend checking a urine culture and sensitivity.
--- NOTE | 2018-12-05 22:44 | PDOC CONSULTATION ---
Consultation-Blank Consultation: CARDIOLOGY CONSULTATION by Dr. Evette Muhammad on 12/03/2018. Patient seen at 11 AM on 12/03/2018. 60 minutes spent on this patient with more than 50% of time spent in direct patient care. REASON FOR CONSULTATION: Congestive heart failure. CONSULT REQUESTING PHYSICIAN: Dr. Josh Wheeler, [facility]. 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 He also states there was a mild increase in swelling of his lower extremities. He also has been having cough which is productive of scanty white mucoid sputum. There is no wheezing. He denies any chest pain or discomfort. His chest x-ray is consistent with the congestive heart failure. The patient states that he has been compliant with medications, and also is very compliant with dietary salt intake and diet. The patient denies any rapid beating of his heart or dizziness or near syncope or syncope. He does not seem to know that he also has kidney disease. He denies any history of TIA CVA. There is no history of asthma or COPD. There is no history of sleep apnea. Past Medical History Cardiac Medical History: Reports: Atrial Fibrillation, Congestive Heart Failure, Coronary Artery Disease, Hyperlipidema, Hypertension Denies: DVT, Myocardial Infarction, Pulmonary Embolism. He states he has a history of 3 stents in the coronary arteries, the last one was done about 3 years ago. Pulmonary Medical History: Reports: Bronchitis, Pneumonia Denies: Asthma, Chronic Obstructive Pulmonary Disease (COPD) EENT Medical History: Denies: Cataracts, Ears - Hearing aids Neurological Medical History: Denies: Hemorrhagic CVA, Ischemic CVA, Seizures Endocrine Medical History: Denies: Diabetes Mellitus Type 1, Diabetes Mellitus Type 2, Hyperthyroidism, Hypothyroidism Renal/ Medical History: Reports: Chronic Kidney Disease, Other - Benign prostatic hypertrophy Denies: Nephrolithiasis Malignancy Medical History: Reports: None GI Medical History: Denies: Cirrhosis, Crohn's Disease, Diverticulitis, Hepatitis, Ulcerative Colitis Musculoskeltal Medical History: Denies: Arthritis, Gout Skin Medical History: Denies: Eczema, Psoriasis Psychiatric Medical History: Denies: Alcohol Dependency, Substance Abuse, Tobacco Dependency Traumatic Medical History: Reports: None Hematology: Reports: Anemia - Chronic anemia of renal insufficiency Denies: Bleeding Tendencies Infectious Medical History: Reports: None SURGICAL history: History of cardiac catheterization and stent placement. Social History Information Source: Patient Lives with: Family Smoking Status: Never Smoker Frequency of Alcohol Use: None Hx Recreational Drug Use: No Drugs: None Hx Prescription Drug Abuse: No - Advance Directive Resuscitation Status: Full Code Surrogate healthcare decision maker:: Mica Molina, the patient's daughter. Family History Family History: COPD. denies: DM, Malignancy Parental Family History Reviewed: Yes Children Family History Reviewed: No Sibling(s) Family History Reviewed.: Yes Medication/Allergy Home Medications: Diltiazem HCl [Cardizem Cd 240 mg Capsule.cr] 240 mg PO DAILY 11/11/17 Finasteride [Proscar 5 mg Tablet] 5 mg PO DAILY 11/11/17 Lovastatin [Altoprev] 20 mg PO DAILY 11/11/17 Metoprolol Succinate [Toprol Xl 50 mg Tab.sr] 50 mg PO BID 11/11/17 Potassium Chloride [K-Tab ER] 10 meq PO BID 11/11/17 Cefuroxime Axetil [Ceftin 500 mg Tablet] 500 mg PO BID #10 tablet 11/17/17 Fluticasone Propionate [Flonase Nasal [place] 50 Mcg/[place] 16 gm] 2 spray NASL Q12 spray.pump 11/17/17 Furosemide [Lasix 40 mg Tablet] 40 mg PO BID tablet 11/17/17 Ipratropium/Albuterol Sulfate [Duoneb 3 ml Ampul] 3 ml NEB [id number] PRN vial.neb 11/17/17 Ipratropium/Albuterol Sulfate [Duoneb 3 ml Ampul] 3 ml NEB RTQ6 vial.neb 11/17/17 Warfarin Sodium [Coumadin 5 mg Tablet] 10 mg PO QHS tablet 11/17/17 Allergies/Adverse Reactions: No Known Allergies Allergy (Verified 12/02/18 17:26) Review of Systems Constitutional: ABSENT: chills, fever(s) Eyes: ABSENT: visual disturbances, other - Eye pain Ears: ABSENT: hearing changes, other - Ear pain Nose, Mouth, and Throat: ABSENT: mouth pain, sore throat Cardiovascular: PRESENT: as per HPI, dyspnea on exertion. ABSENT: chest pain, edema, orthropnea, palpitations Respiratory: PRESENT: as per HPI, cough, dyspnea. ABSENT: hemoptysis, sputum Gastrointestinal: ABSENT: abdominal pain, constipation, diarrhea, nausea, vomiting Genitourinary: ABSENT: dysuria, hematuria Musculoskeletal: ABSENT: back pain, joint swelling, muscle weakness Integumentary: ABSENT: pruritus, rash Neurological: ABSENT: confusion, convulsions, focal weakness, memory loss, syncope Psychiatric: ABSENT: anxiety, depression Endocrine: ABSENT: cold intolerance, heat intolerance Hematologic/Lymphatic: PRESENT: easy bleeding - On warfarin, easy bruising - On warfarin Allergic/Immunologic: ABSENT: seasonal rhinorrhea PHYSICAL EXAMINATION: The patient is well-built and well-nourished. At present in no acute distress. He is sitting up eating his lunch. Selected Entries 12/03/18 11:29 Temperature 98.1 F Temperature Oral Source Pulse Rate 68 Respiratory 20 Rate Blood Pressure 129/89 H Blood Pressure 102 Mean BP Location Right Arm BP Position Sitting O2 Sat by Pulse 99 Oximetry Oxygen Flow 3.00 Rate Oxygen Delivery Nasal Cannula Method HEAD: Is atraumatic normocephalic. EYES: Pupils equal round regular reactive light accommodation. Extraocular movements are normal. There is no conjunctival pallor. There is no scleral icterus. EARS: Tympanic membranes are intact. External auditory canals are clear. NOSE: There is no deviated nasal septum. There is no inflammation of these mucous membrane. MOUTH: Mucous membranes of the mouth are moist tongue is moist. There is no ulcers. There is no bleeding from the gums. THROAT: There is no redness of the oropharynx, there is no exudates in the throat. SKIN: Is without any skin lesions or skin rashes. There is no petechiae or ecchymosis. NECK: Is supple. There is no JVD. Carotids are equal there is no bruit. There is no lymphadenopathy. There is no goiter. There is no accessory muscle respiration use. Trachea central. LUNGS: Shows bilateral rales of CHF. There is also an area of absent breath sounds below the area of rales. HEART: S1-S2 is heard. S1 is of variable intensity. There is no S3 gallop. There is no S4 gallop. There is systolic murmur left sternal border and the apex. There is no rub. ABDOMEN: Is soft. There is no hepatospleno megaly. Bowel sounds well heard. EXTREMITIES: Femorals are diminished. There is no femoral bruits. There is mild pedal edema with chronic venous stasis dermatitis. Leg pulses are diminished. There is no sinus or clubbing. HOSE WRAPPER: The patient is conscious awake alert oriented times with no focal deficits. PSYCHIATRIC: The patient judgment insight are intact his affect is normal. Current Medications Generic Name Dose Route Start Last Admin Trade Name Freq PRN Reason Stop Dose Admin Acetaminophen 650 mg 12/02/18 23:37 Tylenol 325 Mg Tablet PO 01/01/19 23:36 Q4HP PRN For headache, pain or fever Al Hydrox/Mg Hydrox/Simethicone 30 ml 12/02/18 23:37 Maalox Plus Susp 30 Udcup PO 01/01/19 23:36 Q6HP PRN HEARTBURN Docusate Sodium 100 mg 12/03/18 10:00 12/03/18 17:36 Colace 100 Mg Capsule PO 01/02/19 09:59 100 mg BID MALI Administration Furosemide 40 mg 12/03/18 06:00 12/03/18 17:36 Lasix Inj/Pf 40 Mg/4 Ml Sdv IV 12/04/18 00:01 40 mg Q6 MALI Administration Heparin Sodium (Porcine) 5,000 unit 12/03/18 06:00 12/03/18 21:00 Heparin Inj 5,000 Units/Ml 1 Ml Vial SUBCUT 01/02/19 05:59 Not Given Q8 MALI Hydralazine HCl 20 mg 12/02/18 23:37 12/03/18 20:13 Apresoline Inj/Pf 20 Mg/1 Ml Sdv IV 01/01/19 23:36 20 mg Q4HP PRN Administration Give For Sbp > 160 / Dbp > 100 Magnesium Hydroxide 30 ml 12/02/18 23:37 Milk Of Magnesia 30 Ml Udcup PO 01/01/19 23:36 HSP PRN FOR CONSTIPATION Morphine Sulfate 2 mg 12/02/18 23:33 Morphine 10 Mg/Ml Inj IV 12/09/18 23:32 Q1HP PRN Acute Severe Dyspnea Nitroglycerin 1 gm 12/03/18 06:00 12/03/18 17:37 Nitrol 2% Ointment 1gm Packet TP 01/02/19 05:59 1 gm Q6 MALI Administration Ondansetron HCl 4 mg 12/03/18 00:35 Zofran Odt 4 Mg Tablet PO 01/02/19 00:34 Q4HP PRN FOR NAUSEA/VOMITING Ondansetron HCl 4 mg 12/03/18 00:35 Zofran Inj/Pf 4 Mg/2 Ml Sdv IV 01/02/19 00:34 Q4HP PRN FOR NAUSEA/VOMITING Pantoprazole Sodium 20 mg 12/03/18 06:00 12/03/18 06:[address] Tablet PO 01/02/19 05:59 20 mg Q6AM MALI Administration Potassium Chloride 20 meq 12/03/18 12:00 12/03/18 17:36 Klor-Con 10 Meq Capsule Er PO 01/02/19 11:59 20 meq BID MALI Administration Sodium Chloride 2.5 ml 12/03/18 06:00 12/03/18 21:00 Saline Flush 2.5 Ml Monoject Prefil Syrin IV 01/02/19 05:59 Not Given Q8 MALI Temazepam 7.5 mg 12/03/18 00:35 Restoril 7.5 Mg Capsule PO 12/10/18 00:34 HSP PRN SLEEP OR INSOMNIA Discontinued Medications Generic Name Dose Route Start Last Admin Trade Name Freq PRN Reason Stop Dose Admin Famotidine 20 mg 12/03/18 10:00 Pepcid 20 Mg Tablet PO 01/02/19 09:59 Q12 MALI Furosemide 40 mg 12/02/18 20:31 12/02/18 21:17 Lasix Inj/Pf 40 Mg/4 Ml Sdv IV 12/02/18 20:32 40 mg NOW ONE Administration Nitroglycerin 1 gm 12/02/18 20:30 12/02/18 20:48 Nitrol 2% Ointment 1gm Packet TP 12/02/18 20:31 1 gm NOW ONE Administration Labs- Entire Visit 12/02/18 12/02/18 12/02/18 18:31 18:31 18:31 WBC 6.5 RBC 3.81 L Hgb 11.3 L Hct 35.1 L MCV 92 MCH 29.6 MCHC 32.2 RDW 19.9 H Plt Count 113 L Lymph % (Auto) 11.2 L [place] % (Auto) 9.7 Eos % (Auto) 1.3 Baso % (Auto) 0.8 Absolute Neuts (auto) 5.0 Absolute Lymphs (auto) 0.7 Absolute Monos (auto) 0.6 Absolute Eos (auto) 0.1 Absolute Basos (auto) 0.1 Seg Neutrophils % 77.0 PT INR APTT Carbonic Acid HCO3/H2CO3 Ratio ABG pH ABG pCO2 ABG pO2 ABG HCO3 ABG Total CO2 ABG O2 Saturation ABG Base Excess FiO2 Sodium 145.9 H Potassium 3.8 Chloride 104 Carbon Dioxide 35 H Anion Gap 7 BUN 34 H Creatinine 1.90 H Est GFR ( Amer) 41 L Est GFR (MDRD) Non-Af 34 L Glucose 94 POC Glucose Calcium 9.4 Magnesium Total Bilirubin 1.3 Direct Bilirubin 0.5 H Neonat Total Bilirubin Not Reportable Neonat Direct Bilirubin Not Reportable Neonat Indirect Bili Not Reportable AST 24 ALT 11 Alkaline Phosphatase 67 Creatine Kinase 41 L CK-MB (CK-2) 1.21 Troponin I 0.023 NT-Pro-B Natriuret Pep Total Protein 7.4 Albumin 3.8 Triglycerides Cholesterol LDL Cholesterol Direct VLDL Cholesterol HDL Cholesterol TSH Free T4 Free T3 pg/mL Urine Color Urine Appearance Urine pH Ur Specific [place] Urine Protein Urine Glucose (UA) Urine Ketones Urine Blood Urine Nitrite Urine Bilirubin Urine Urobilinogen Ur Leukocyte Esterase Urine WBC (Auto) Urine RBC (Auto) U Hyaline Cast (Auto) Urine Mucus (Auto) Urine Ascorbic Acid 12/02/18 12/02/18 12/02/18 18:31 18:31 18:31 WBC RBC Hgb Hct MCV MCH MCHC RDW Plt Count Lymph % (Auto) [place] % (Auto) Eos % (Auto) Baso % (Auto) Absolute Neuts (auto) Absolute Lymphs (auto) Absolute Monos (auto) Absolute Eos (auto) Absolute Basos (auto) Seg Neutrophils % PT 16.6 H INR 1.33 APTT 35.8 Carbonic Acid HCO3/H2CO3 Ratio ABG pH ABG pCO2 ABG pO2 ABG HCO3 ABG Total CO2 ABG O2 Saturation ABG Base Excess FiO2 Sodium Potassium Chloride Carbon Dioxide Anion Gap BUN Creatinine Est GFR ( Amer) Est GFR (MDRD) Non-Af Glucose POC Glucose Calcium Magnesium Total Bilirubin Direct Bilirubin Neonat Total Bilirubin Neonat Direct Bilirubin Neonat Indirect Bili AST ALT Alkaline Phosphatase Creatine Kinase CK-MB (CK-2) Troponin I NT-Pro-B Natriuret Pep 35809 H Total Protein Albumin Triglycerides Cholesterol LDL Cholesterol Direct VLDL Cholesterol HDL Cholesterol TSH Free T4 1.35 Free T3 pg/mL 1.96 L Urine Color Urine Appearance Urine pH Ur Specific [place] Urine Protein Urine Glucose (UA) Urine Ketones Urine Blood Urine Nitrite Urine Bilirubin Urine Urobilinogen Ur Leukocyte Esterase Urine WBC (Auto) Urine RBC (Auto) U Hyaline Cast (Auto) Urine Mucus (Auto) Urine Ascorbic Acid 12/02/18 12/02/18 12/03/18 19:29 21:30 01:00 WBC RBC Hgb Hct MCV MCH MCHC RDW Plt Count Lymph % (Auto) [place] % (Auto) Eos % (Auto) Baso % (Auto) Absolute Neuts (auto) Absolute Lymphs (auto) Absolute Monos (auto) Absolute Eos (auto) Absolute Basos (auto) Seg Neutrophils % PT INR APTT Carbonic Acid 1.31 HCO3/H2CO3 Ratio 22:1 ABG pH 7.45 ABG pCO2 43.6 ABG pO2 119.7 H ABG HCO3 29.7 H ABG Total CO2 31.0 H ABG O2 Saturation 98.5 H ABG Base Excess 5.1 FiO2 80% Sodium Potassium Chloride Carbon Dioxide Anion Gap BUN Creatinine Est GFR ( Amer) Est GFR (MDRD) Non-Af Glucose POC Glucose Calcium Magnesium Total Bilirubin Direct Bilirubin Neonat Total Bilirubin Neonat Direct Bilirubin Neonat Indirect Bili AST ALT Alkaline Phosphatase Creatine Kinase 33 L CK-MB (CK-2) Troponin I NT-Pro-B Natriuret Pep Total Protein Albumin Triglycerides Cholesterol LDL Cholesterol Direct VLDL Cholesterol HDL Cholesterol TSH Free T4 Free T3 pg/mL Urine Color YELLOW Urine Appearance CLEAR Urine pH 6.0 Ur Specific [place] 1.012 Urine Protein 100 H Urine Glucose (UA) NEGATIVE Urine Ketones NEGATIVE Urine Blood SMALL H Urine Nitrite NEGATIVE Urine Bilirubin NEGATIVE Urine Urobilinogen NEGATIVE Ur Leukocyte Esterase NEGATIVE Urine WBC (Auto) 2 Urine RBC (Auto) 2 U Hyaline Cast (Auto) 1 Urine Mucus (Auto) RARE Urine Ascorbic Acid NEGATIVE 12/03/18 12/03/18 12/03/18 01:00 06:51 06:51 WBC 7.2 RBC 3.79 L Hgb 11.3 L Hct 34.9 L MCV 92 MCH 29.8 MCHC 32.4 RDW 19.9 H Plt Count 107 L Lymph % (Auto) [place] % (Auto) Eos % (Auto) Baso % (Auto) Absolute Neuts (auto) Absolute Lymphs (auto) Absolute Monos (auto) Absolute Eos (auto) Absolute Basos (auto) Seg Neutrophils % PT INR APTT Carbonic Acid HCO3/H2CO3 Ratio ABG pH ABG pCO2 ABG pO2 ABG HCO3 ABG Total CO2 ABG O2 Saturation ABG Base Excess FiO2 Sodium 146.1 H Potassium 3.3 L Chloride 103 Carbon Dioxide 35 H Anion Gap 8 BUN 33 H Creatinine 1.84 H Est GFR ( Amer) 43 L Est GFR (MDRD) Non-Af 35 L Glucose 69 L POC Glucose Calcium 9.2 Magnesium 2.2 Total Bilirubin Direct Bilirubin Neonat Total Bilirubin Neonat Direct Bilirubin Neonat Indirect Bili AST ALT Alkaline Phosphatase Creatine Kinase 36 L CK-MB (CK-2) 1.08 Troponin I 0.022 NT-Pro-B Natriuret Pep Total Protein Albumin Triglycerides 67 Cholesterol 108.74 LDL Cholesterol Direct 61 VLDL Cholesterol 13.0 HDL Cholesterol 36 L TSH Free T4 Free T3 pg/mL Urine Color Urine Appearance Urine pH Ur Specific [place] Urine Protein Urine Glucose (UA) Urine Ketones Urine Blood Urine Nitrite Urine Bilirubin Urine Urobilinogen Ur Leukocyte Esterase Urine WBC (Auto) Urine RBC (Auto) U Hyaline Cast (Auto) Urine Mucus (Auto) Urine Ascorbic Acid 12/03/18 12/03/18 12/03/18 06:51 06:51 08:14 WBC RBC Hgb Hct MCV MCH MCHC RDW Plt Count Lymph % (Auto) [place] % (Auto) Eos % (Auto) Baso % (Auto) Absolute Neuts (auto) Absolute Lymphs (auto) Absolute Monos (auto) Absolute Eos (auto) Absolute Basos (auto) Seg Neutrophils % PT INR APTT Carbonic Acid HCO3/H2CO3 Ratio ABG pH ABG pCO2 ABG pO2 ABG HCO3 ABG Total CO2 ABG O2 Saturation ABG Base Excess FiO2 Sodium Potassium Chloride Carbon Dioxide Anion Gap BUN Creatinine Est GFR ( Amer) Est GFR (MDRD) Non-Af Glucose POC Glucose 134 H Calcium Magnesium Total Bilirubin Direct Bilirubin Neonat Total Bilirubin Neonat Direct Bilirubin Neonat Indirect Bili AST ALT Alkaline Phosphatase Creatine Kinase CK-MB (CK-2) 1.29 Troponin I 0.027 NT-Pro-B Natriuret Pep Total Protein Albumin Triglycerides Cholesterol LDL Cholesterol Direct VLDL Cholesterol HDL Cholesterol TSH 1.47 Free T4 Free T3 pg/mL Urine Color Urine Appearance Urine pH Ur Specific [place] Urine Protein Urine Glucose (UA) Urine Ketones Urine Blood Urine Nitrite Urine Bilirubin Urine Urobilinogen Ur Leukocyte Esterase Urine WBC (Auto) Urine RBC (Auto) U Hyaline Cast (Auto) Urine Mucus (Auto) Urine Ascorbic Acid 12/03/18 12/03/18 12/03/18 12:44 12:44 12:44 WBC RBC Hgb Hct MCV MCH MCHC RDW Plt Count Lymph % (Auto) [place] % (Auto) Eos % (Auto) Baso % (Auto) Absolute Neuts (auto) Absolute Lymphs (auto) Absolute Monos (auto) Absolute Eos (auto) Absolute Basos (auto) Seg Neutrophils % PT INR APTT Carbonic Acid HCO3/H2CO3 Ratio ABG pH ABG pCO2 ABG pO2 ABG HCO3 ABG Total CO2 ABG O2 Saturation ABG Base Excess FiO2 Sodium Potassium Chloride Carbon Dioxide Anion Gap BUN Creatinine Est GFR ( Amer) Est GFR (MDRD) Non-Af Glucose POC Glucose Calcium Magnesium Total Bilirubin Direct Bilirubin Neonat Total Bilirubin Neonat Direct Bilirubin Neonat Indirect Bili AST ALT Alkaline Phosphatase Creatine Kinase 41 L CK-MB (CK-2) 1.50 Troponin I 0.026 NT-Pro-B Natriuret Pep 06546 H Total Protein Albumin Triglycerides Cholesterol LDL Cholesterol Direct VLDL Cholesterol HDL Cholesterol TSH Free T4 Free T3 pg/mL Urine Color Urine Appearance Urine pH Ur Specific [place] Urine Protein Urine Glucose (UA) Urine Ketones Urine Blood Urine Nitrite Urine Bilirubin Urine Urobilinogen Ur Leukocyte Esterase Urine WBC (Auto) Urine RBC (Auto) U Hyaline Cast (Auto) Urine Mucus (Auto) Urine Ascorbic Acid Chest X-Ray 12/02/18 00:00 IMPRESSION: Blunted costophrenic angles and increased opacity at the lower lungs could represent a combination of pleural fluid and atelectasis. Recommend follow-up. Cardiac silhouette is enlarged which could be secondary to cardiomegaly. My interpretation is CHF with cardiomegaly. IMPRESSION/RECOMMENDATION: 1. 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 every 12 hours and add an MARY inhibitor. Would watch the patient renal function cautiously on MARY inhibitors. 2. Coronary artery disease: History of stents x3. Patient denies history of CO. Will get records. There is no anginal symptoms. No evidence of acute coronary syndrome this admission. 3. Chronic atrial fibrillation: Note that the patient's heart rate seems to be controlled. Continue Coumadin as per PT/INR. Note that the patient's INR is subtherapeutic we discussed with the family and change the patient to Eliquis at 2.5 mg p.o. twice daily, instead of Coumadin. 4. Cardiomyopathy with moderately reduced LV ejection fraction. As mentioned earlier start the patient on a beta-anjel and MARY inhibitor. Note that the patient's medications are not known. We will get the patient's home medications prior to starting new medications. We will request records from [facility], but the patient states he had his last stent about 3 years ago. Medications reviewed.Await patient's home med list.Will discuss with the attending provider on the case.Medical decision making is of high complexity.Will follow.
--- NOTE | 2018-12-05 22:50 | Progress Note ---
Provider Note Provider Note: CARDIOLOGY PROGRESS NOTE by Dr. Evette Muhammad on 12/05/2018. Subjective: Patient appears to be slightly confused. Yesterday the patient developed fever and also became hypotensive and needed to be started on dopamine dopamine. His troponin I is mildly elevated. In the borderline range. The patient denies any chest pain or discomfort. There is no cough or sputum production. Today he has no shortness of breath. The patient continues to be in atrial fibrillation. He is covered by empiric broad-spectrum antibiotics. There is no TIA CVA symptoms. PHYSICAL EXAMINATION: The patient's of his stated age. At present in no acute distress. Selected Entries 12/05/18 12:54 Temperature 97.6 F Temperature Axillary Source Pulse Rate 69 Respiratory 16 Rate Blood Pressure 138/62 H Blood Pressure 87 Mean BP Location Left Arm BP Position Supine O2 Sat by Pulse 95 Oximetry Oxygen Flow 6.00 Rate Oxygen Delivery Nasal Cannula Method HEAD: Is atraumatic normocephalic. EYES: Pupils equal round regular reactive light accommodation. Extraocular movements are normal. There is no conjunctival pallor. There is no scleral icterus. EARS: Tympanic membranes are intact. External auditory canals are clear. NOSE: There is no deviated nasal septum. There is no inflammation of these mucous membrane. MOUTH: Mucous membranes of the mouth are moist tongue is moist. There is no ulcers. There is no bleeding from the gums. THROAT: There is no redness of the oropharynx, there is no exudates in the throat. SKIN: Is without any skin lesions or skin rashes. There is no petechiae or ecchymosis. NECK: Is supple. There is no JVD. Carotids are equal there is no bruit. There is no lymphadenopathy. There is no goiter. There is no accessory muscle respiration use. Trachea central. LUNGS: Shows bilateral rales of CHF. There is also an area of absent breath sounds below the area of rales. HEART: S1-S2 is heard. S1 is of variable intensity. There is no S3 gallop. There is no S4 gallop. There is systolic murmur left sternal border and the apex. There is no rub. ABDOMEN: Is soft. There is no hepatospleno megaly. Bowel sounds well heard. EXTREMITIES: Femorals are diminished. There is no femoral bruits. There is mild pedal edema with chronic venous stasis dermatitis. Leg pulses are diminished. There is no sinus or clubbing. VISUAL PRESENTATION MANAGER: The patient is conscious awake alert oriented times with no focal deficits. PSYCHIATRIC: The patient judgment insight are intact his affect is normal. Labs- All tests 24 hr 12/05/18 12/05/18 12/05/18 02:50 02:50 06:40 WBC RBC Hgb Hct MCV MCH MCHC RDW Plt Count Lymph % (Auto) [place] % (Auto) Eos % (Auto) Baso % (Auto) Absolute Neuts (auto) Absolute Lymphs (auto) Absolute Monos (auto) Absolute Eos (auto) Absolute Basos (auto) Seg Neutrophils % Sodium 144.2 Potassium 3.5 L Chloride 106 Carbon Dioxide 32 H Anion Gap 6 BUN 34 H Creatinine 1.81 H Est GFR ( Amer) 43 L Est GFR (MDRD) Non-Af 36 L Glucose 75 Lactic Acid Calcium 8.7 Magnesium 2.0 Creatine Kinase 61 CK-MB (CK-2) 1.33 Troponin I 0.105 12/05/18 12/05/18 06:40 14:02 WBC 10.9 H RBC 3.38 L Hgb 10.3 L Hct 31.1 L MCV 92 MCH 30.4 MCHC 33.0 RDW 19.2 H Plt Count 102 L Lymph % (Auto) 9.0 L [place] % (Auto) 9.5 Eos % (Auto) 0.5 Baso % (Auto) 0.2 Absolute Neuts (auto) 8.8 H Absolute Lymphs (auto) 1.0 Absolute Monos (auto) 1.0 Absolute Eos (auto) 0.1 Absolute Basos (auto) 0.0 Seg Neutrophils % 80.8 H Sodium Potassium Chloride Carbon Dioxide Anion Gap BUN Creatinine Est GFR ( Amer) Est GFR (MDRD) Non-Af Glucose Lactic Acid 1.0 Calcium Magnesium Creatine Kinase CK-MB (CK-2) Troponin I Chest X-Ray 12/02/18 00:00 IMPRESSION: Blunted costophrenic angles and increased opacity at the lower lungs could represent a combination of pleural fluid and atelectasis. Recommend follow-up. Cardiac silhouette is enlarged which could be secondary to cardiomegaly. Chest X-Ray 12/04/18 00:00 IMPRESSION: Stable AP portable examination with small bilateral pleural effusions and bibasilar heterogeneous opacity. Gross cardiomegaly. Lung Scan-VQ NM 12/05/18 00:00 IMPRESSION: Limited ventilation examination. No significant perfusion defect. Findings are consistent with radiographic findings of pleural effusions and cardiomegaly. Low probability examination for pulmonary embolism by modified PIOPED criteria. IMPRESSION/RECOMMENDATION: 1. Hypotension with fever. Most likely this is secondary infectious process.? Etiology. So far the blood culture and urine cultures are negative. Continue current broad-spectrum antibiotics empirically. The patient's vent ilation/perfusion scan is negative for PE. 2. Mildly elevated troponin levels. This is most likely secondary to supply demand mismatch. 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 Continue current treatment. 2. Complains of shortness of breath: Probably secondary to anxiety patient's physical examination is unremarkable. 3. Coronary artery disease: History of stents x3. Patient denies history of [place]. Will get records. There is no anginal symptoms. No evidence of acute coronary syndrome this admission. 4. Chronic atrial fibrillation: Note that the patient's heart rate seems to be controlled. Per discussion with the patient's daughter yesterday the patient has had frequent falls and also had injury to his neck. Hence is Coumadin has been stopped. Hence will not start the patient on any chronic anticoagulation. This has been discussed with the attending provider on the case. 5. 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 As mentioned earlier start the patient on a beta-anjel and MARY inhibitor. Medications reviewed. Management plan discussed with attending physician on the case. Medical decision making is of moderate complexity. 40 minutes spent on this patient with more than 50% of time spent in direct patient care.
[2018-12-06] MEDS: TEMAZEPAM 7.5 MG CAPSULE PO PRN ×2 (00:36→23:37)
[2018-12-06] MEDS: ACETAMINOPHEN 325 MG TABLET PO PRN ×3 (00:36→23:38)
[2018-12-06] MEDS: RINGERS SOLUTION,LACTATED 1,000 ML IV PRN (03:00)
[2018-12-06] MEDS: HEPARIN SOD (PORCINE) 5,000 UNIT/ML 1 ML VIAL SUBCUT SCH (06:45)
[2018-12-06] MEDS: PANTOPRAZOLE SODIUM 20 MG TABLET.DR PO SCH (06:52)
[2018-12-06] MEDS: MEROPENEM 1 GM in NORMAL SALINE 50 ML IV SCH (06:52)
[2018-12-06] MEDS: POTASSIUM CHLORIDE 10 MEQ CAPSULE.ER PO SCH ×2 (09:14→17:17)
[2018-12-06] MEDS: FINASTERIDE 5 MG TABLET PO SCH (09:14)
[2018-12-06] MEDS: APIXABAN 2.5 MG TABLET PO SCH ×2 (09:14→17:18)
[2018-12-06] MEDS: DOCUSATE SODIUM 100 MG CAPSULE PO SCH ×2 (09:14→17:17)
[2018-12-06] MEDS: DILTIAZEM HCL 240 MG CAPSULE.CR PO SCH (09:15)
[2018-12-06] MEDS: METOPROLOL SUCCINATE 50 MG TAB.SR.24H PO SCH (09:15)
[2018-12-06] MEDS ORDERED: BISACODYL 10 MG SUPP.RECT PR ONE (09:15)
[2018-12-06] MEDS ORDERED: DILTIAZEM HCL 240 MG PO SCH (10:00)
[2018-12-06] MEDS ORDERED: (PENDING PHARMACY ID) (Potassium Chloride [Klor-Con M10] 10 MEQ) PO SCH (10:00)
[2018-12-06] MEDS: CEFAZOLIN 1 GM/D5W RTU 1 GM/50 ML RTUPB IV SCH ×3 (11:02→23:37)
--- NOTE | 2018-12-06 15:14 | Progress Note Acknowledgement ---
Progress Note Acknowledgement Progess Note Acknowledgement: I, the undersigned member of the medical staff with appropriate privileges and with supervisory authority over Haily Hutchins, a [facility] practice allied health professional, acknowledge that I have reviewed the progress notes entered on this patient, and in my professional judgment believe that the assessment made and/or any care evidenced was appropriate
--- NOTE | 2018-12-06 15:30 | PDOC PROGRESS REPORT ---
Subjective Progress Note for:: 12/06/18 Subjective:: The patient is an 83 year old male with a past medical history significant for CHF, Afib, CAD, HTN, HLD, CKD, and BPH who was admitted 12/02/2018 for acute respiratory failure with hypoxia secondary to acute CHF exacerbation resulting in pulmonary edema. Patient then subsequently developed SIRS now found to have a right lower extremity cellulitis. Patient was seen on morning rounds. He is found resting in the recliner, comfortably, on his baseline oxygen requirement of 3.5 L/min. His primary complaint today is constipation. Otherwise he reports he feels well. He denies fever, chills, chest pain, palpitations, dyspnea, nausea, vomiting, diarrhea. No other questions or concerns at this time. No concerns per nursing. Reason For Visit: ACUTE RESPIRATORY FAILURE WITH HYPOXIA,ACUTE ON Physical Exam Vital Signs: Temp Pulse Resp BP Pulse Ox 98.4 F 78 18 152/61 H 96 12/06/18 07:58 12/06/18 14:00 12/06/18 11:18 12/06/18 11:18 12/06/18 11:18 Intake & Output 12/05/18 12/06/18 12/07/18 06:59 06:59 06:59 Intake Total 2760 3902 470 Output Total 900 900 200 Balance 1860 3002 270 Weight 71.5 kg 73.8 kg General appearance: PRESENT: no acute distress, cooperative - Pleasant, well- developed, well-nourished Head exam: PRESENT: atraumatic, normocephalic Eye exam: PRESENT: conjunctiva pink, EOMI, PERRLA. ABSENT: scleral icterus Ear exam: PRESENT: normal external ear exam Mouth exam: PRESENT: moist, tongue midline Neck exam: ABSENT: carotid bruit, JVD, lymphadenopathy, thyromegaly Respiratory exam: PRESENT: clear to auscultation nigel, symmetrical, unlabored. ABSENT: rales, rhonchi, wheezes Cardiovascular exam: PRESENT: RRR. ABSENT: diastolic murmur, rubs, systolic murmur Pulses: PRESENT: normal dorsalis pedis pul Vascular exam: PRESENT: normal capillary refill GI/Abdominal exam: PRESENT: distended, normal bowel sounds, soft, tenderness. ABSENT: guarding, mass, organolmegaly, rebound Rectal exam: PRESENT: deferred Gentrourinary exam: PRESENT: indwelling catheter Extremities exam: PRESENT: full ROM. ABSENT: calf tenderness, clubbing, pedal edema Neurological exam: PRESENT: alert, awake, oriented to person, oriented to place, oriented to time, oriented to situation, CN II-XII grossly intact. ABSENT: motor sensory deficit Psychiatric exam: PRESENT: appropriate affect, normal mood. ABSENT: homicidal ideation, suicidal ideation Skin exam: PRESENT: dry, erythema - RLE; serous drainage present, intact, warm. ABSENT: cyanosis, rash Results Laboratory Results: 12/05/18 06:40 12/05/18 06:40 12/04/18 20:00 Catheterized Urine Urine Culture - Final NO GROWTH 2 DAYS 12/02/18 12/02/18 12/02/18 18:31 18:31 18:31 Creatine Kinase 41 L CK-MB (CK-2) 1.21 Troponin I 0.023 NT-Pro-B Natriuret Pep 29646 H 12/03/18 12/03/18 12/03/18 01:00 01:00 06:51 Creatine Kinase 33 L 36 L CK-MB (CK-2) 1.08 Troponin I 0.022 NT-Pro-B Natriuret Pep 12/03/18 12/03/18 12/03/18 06:51 12:44 12:44 Creatine Kinase 41 L CK-MB (CK-2) 1.29 1.50 Troponin I 0.027 0.026 NT-Pro-B Natriuret Pep 12/03/18 12/04/18 12/04/18 12:44 15:00 15:00 Creatine Kinase 52 L CK-MB (CK-2) 1.92 Troponin I 0.071 NT-Pro-B Natriuret Pep 88199 H 12/04/18 12/04/18 12/05/18 20:45 20:45 02:50 Creatine Kinase 51 L 61 CK-MB (CK-2) 0.85 Troponin I 0.143 NT-Pro-B Natriuret Pep 12/05/18 02:50 Creatine Kinase CK-MB (CK-2) 1.33 Troponin I 0.105 NT-Pro-B Natriuret Pep Impressions: Chest X-Ray 12/04/18 00:00 IMPRESSION: Stable AP portable examination with small bilateral pleural effusions and bibasilar heterogeneous opacity. Gross cardiomegaly. Lung Scan-VQ NM 12/05/18 00:00 IMPRESSION: Limited ventilation examination. No significant perfusion defect. Findings are consistent with radiographic findings of pleural effusions and cardiomegaly. Low probability examination for pulmonary embolism by modified PIOPED criteria. Assessment and Plan - Diagnosis (1) Cellulitis and abscess of leg Is this a current diagnosis for this admission?: Yes Plan: Patient is found to have right lower leg erythema, serous drainage, and tender ness to touch. He is noted to have evidence of chronic peripheral vascular changes. Blood cultures negative at 24 hours. No history of MRSA. Discontinue IV vancomycin and meropenem. Start IV Ancef. Keep extremity elevated. (2) Acute on chronic diastolic congestive heart failure Is this a current diagnosis for this admission?: Yes Plan: Significantly improved. Echocardiogram 2018 revealed LVEF 55% with mildly ventricular diastolic dysfunction. Dobutamine drip is discontinued today by cardiology. Continue home dose diltiazem, metoprolol, and furosemide. Cardiac diet. Daily weights and strict I&O's. Weight is up 5.8 kg. We will discontinue IV fluids today; patient with adequate p.o. intake. Cardiology is consulted; appreciate Dr. Muhammad's assistance. (3) CAD (coronary artery disease) Is this a current diagnosis for this admission?: Yes Plan: Patient denies chest pain. Troponins are elevated, although, this is secondary to acute respiratory failure with hypoxia, CHF exacerbation, and sepsis related to cellulitis. Cardiology is consulted; primary evaluation management per their expertise. Continue Eliquis, aspirin, statin, and antihypertensives as addressed elsewhere. (4) Chronic atrial fibrillation Is this a current diagnosis for this admission?: Yes Plan: Rate controlled on home dose diltiazem and metoprolol. Chronically anticoagulated on Eliquis 2.5 mg twice daily. Continue monitor on continuous cardiac telemetry. (5) Anticoagulant long-term use Is this a current diagnosis for this admission?: Yes Plan: INR was subtherapeutic on admission. Has been transitioned to renally dosed Eliquis by cardiology. (6) Sepsis Is this a current diagnosis for this admission?: Yes Plan: Resolved; patient now afebrile x24 hours, normal WBCs, maintaining adequate blood pressures, vital signs otherwise stable. Secondary to lower extremity cellulitis. Chest x-ray is clear. Urinalysis is negative. Blood and urine cultures are negative at 24 hours. Patient was initially placed on IV meropenem and vancomycin when source was still an identified. Will transition to IV Ancef as the patient has no history of area (7) Chronic kidney disease, stage 3 Is this a current diagnosis for this admission?: Yes Plan: Stable; at baseline. Avoid nephrotoxic medications as able. Optimize cardiac output. Daily chemistries. (8) Acute pulmonary edema Is this a current diagnosis for this admission?: Yes Plan: Resolved. Secondary to acute CHF exacerbation. Patient is now maintaining oxygen saturations on his baseline oxygen requirement with clear lung sounds. Speaking full sentences without increased work of breathing. Evaluation management of CHF as above. (9) Acute respiratory failure with hypoxia Is this a current diagnosis for this admission?: Yes Plan: Resolved; secondary to pulmonary edema and CHF exacerbation. Now maintaining saturations on baseline oxygen requirement. (10) Elevated troponin I level Is this a current diagnosis for this admission?: Yes Plan: Patient does have a history of [place] s/p 3 stents. He remains chest pain-free. Troponins likely elevated secondary to acute respiratory failure with hypoxia, CHF exacerbation, and sepsis. Now trending down. Cardiology is consulted. Evaluation management as above. (11) Constipated Is this a current diagnosis for this admission?: Yes Plan: DulcoLax suppository x 1 Soap suds enema x1 Continue daily Colace. Milk of Mag daily prn. - Time Time Spent with patient: 25-34 minutes Medications reviewed and adjusted accordingly: Yes Anticipated discharge: Home with Homehealth Within: within 48 hours
--- NOTE | 2018-12-06 21:06 | Progress Note ---
Provider Note Provider Note: CARDIOLOGY PROGRESS NOTE by Dr. Evette Quiroz on 12/06/2018. SUBJECTIVE: The patient's only complaint is constipation. He denies any chest pain or discomfort. There is no shortness of breath. There is no cough or sputum production. The patient denies any PND orthopnea. He is in atrial fibrillation with controlled ventricular response. There is no TIA CVA symptoms. There is no ventricular arrhythmia seen on the monitor. PHYSICAL EXAMINATION: The patient is of her stated age. In no acute distress. The patient's blood pressure stable hence will stop the patient's dopamine. Selected Entries 12/06/18 07:58 Temperature 98.4 F Temperature Oral Source Pulse Rate 76 Respiratory 20 Rate Blood Pressure 152/87 H Blood Pressure 108 Mean BP Location Left Arm BP Position Supine O2 Sat by Pulse 95 Oximetry Oxygen Flow 5.50 Rate Oxygen Delivery Nasal Cannula Method HEAD: Is atraumatic normocephalic. EYES: Pupils equal round regular reactive light accommodation. Extraocular movements are normal. There is no conjunctival pallor. There is no scleral icterus. EARS: Tympanic membranes are intact. External auditory canals are clear. NOSE: There is no deviated nasal septum. There is no inflammation of these mucous membrane. MOUTH: Mucous memb ranes of the mouth are moist tongue is moist. There is no ulcers. There is no bleeding from the gums. THROAT: There is no redness of the oropharynx, there is no exudates in the throat. SKIN: Is without any skin lesions or skin rashes. There is no petechiae or ecchymosis. NECK: Is supple. There is no JVD. Carotids are equal there is no bruit. There is no lymphadenopathy. There is no goiter. There is no accessory muscle respiration use. Trachea central. LUNGS: Shows bilateral rales of CHF. There is also an area of absent breath sounds below the area of rales. HEART: S1-S2 is heard. S1 is of variable intensity. There is no S3 gallop. There is no S4 gallop. There is systolic murmur left sternal border and the apex. There is no rub. ABDOMEN: Is soft. There is no hepatospleno megaly. Bowel sounds well heard. EXTREMITIES: Femorals are diminished. There is no femoral bruits. There is mild pedal edema with chronic venous stasis dermatitis. Leg pulses are diminished. There is no sinus or clubbing. TRACK FITTER: The patient is conscious awake alert oriented times with no focal deficits. PSYCHIATRIC: The patient judgment insight are intact his affect is normal. IMPRESSION/RECOMMENDATION: 1. Hypotension with fever. Most likely this is secondary infectious process.? Etiology. So far the blood culture and urine cultures are negative. Continue current broad-spectrum antibiotics empirically. The patient's ventilation/perfusion scan is negative for PE. The patient now is afebrile. Hypotension is resolved. Will we will stop the patient's dopamine. Patient blood pressure stable. 2. Mildly elevated troponin levels. This is most likely secondary to supply demand mismatch. 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 Continue current treatment. 2. Complains of shortness of breath: Probably secondary to anxiety patient's physical examination is unremarkable. 3. Coronary artery disease: History of stents x3. Patient denies history of [place]. Will get records. There is no anginal symptoms. No evidence of acute coronary syndrome this admission. 4. Chronic atrial fibrillation: Note that the patient's heart rate seems to be controlled. Per discussion with the patient's daughter yesterday the patient has had frequent falls and also had injury to his neck. Hence is Coumadin has been stopped. Hence will not start the patient on any chronic anticoagulation. This has been discussed with the attending provider on the case. 5. 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 As mentioned earlier start the patient on a beta-anjel and MARY inhibitor. Medications reviewed. Management plan discussed with attending physician on the case. Medical decision making is of moderate complexity. 40 minutes spent on this patient with more than 50% of time spent in direct patient care
[2018-12-06] MEDS ORDERED: (PENDING PHARMACY ID) (Lovastatin [Mevacor] 20 MG) PO SCH (22:00)
[2018-12-07] MEDS: PANTOPRAZOLE SODIUM 20 MG TABLET.DR PO SCH (06:30)
[2018-12-07] MEDS: CEFAZOLIN 1 GM/D5W RTU 1 GM/50 ML RTUPB IV SCH ×4 (06:30→23:28)
[2018-12-07 06:56] LABS: HEMATOCRIT 33.5 % (37.9-51.0); HEMOGLOBIN 10.8 g/dL (13.5-17.0); MEAN CORPUSCULAR HEMOGLOBIN 29.8 pg (27.0-33.4); MEAN CORPUSCULAR HGB CONC 32.4 g/dL (32.0-36.0); MEAN CORPUSCULAR VOLUME 92 fl (80-97); PLATELET COUNT 106 10^3/uL (150-450); RED BLOOD COUNT 3.64 10^6/uL (4.35-5.55); RED CELL DISTRIBUTION WIDTH 18.9 % (11.5-14.0); WHITE BLOOD COUNT 7.9 10^3/uL (4.0-10.5)
[2018-12-07 07:16] LABS: ANION GAP 9 (5-19); BLOOD UREA NITROGEN 39 mg/dL (7-20); CALCIUM 9.3 mg/dL (8.4-10.2); CARBON DIOXIDE 31 mmol/L (22-30); CHLORIDE 105 mmol/L (98-107); GLUCOSE 94 mg/dL (75-110); POTASSIUM 4.8 mmol/L (3.6-5.0)
[2018-12-07] MEDS: DOCUSATE SODIUM 100 MG CAPSULE PO SCH ×2 (09:49→17:03)
[2018-12-07] MEDS: FINASTERIDE 5 MG TABLET PO SCH (09:49)
[2018-12-07] MEDS: POTASSIUM CHLORIDE 10 MEQ CAPSULE.ER PO SCH ×2 (09:50→17:03)
[2018-12-07] MEDS: METOPROLOL SUCCINATE 50 MG TAB.SR.24H PO SCH (09:50)
[2018-12-07] MEDS: DILTIAZEM HCL 240 MG CAPSULE.CR PO SCH (09:50)
[2018-12-07] MEDS ORDERED: MORPHINE SULFATE 10 MG/5 ML ORAL SOLUTION UDCUP PO ONE (13:43)
--- NOTE | 2018-12-07 14:12 | PDOC PROGRESS REPORT ---
Subjective Progress Note for:: 12/07/18 Subjective:: The patient is an 83 year old male with a past medical history significant for CHF, Afib, CAD, HTN, HLD, CKD, and BPH who was admitted 12/02/2018 for acute respiratory failure with hypoxia secondary to acute CHF exacerbation resulting in pulmonary edema. Patient then subsequently developed SIRS now found to have a right lower extremity cellulitis. Patient was seen on morning rounds. He is found resting in bed, comfortably, on his baseline oxygen requirement of 4 L/min. He reports that he is feeling well today. Constipation has resolved. He denies fever, chills, chest pain, palpitations, dyspnea, nausea, vomiting, diarrhea. No other questions or concerns at this time. Nursing notes that the patient frequently moans "oh me," when asked, patient states that he picked this up somewhere and just does this now. He does suggest that it may be part of his self-soothing related to dyspnea. Reason For Visit: ACUTE RESPIRATORY FAILURE WITH HYPOXIA,ACUTE ON Physical Exam Vital Signs: Temp Pulse Resp BP Pulse Ox 97.4 F 75 22 H 148/69 H 91 L 12/07/18 03:20 12/07/18 06:48 12/07/18 03:20 12/07/18 03:20 12/07/18 03:20 Intake & Output 12/06/18 12/07/18 12/08/18 06:59 06:59 06:59 Intake Total 3902 1742 100 Output Total 900 500 Balance 3002 1242 100 Weight 73.8 kg 70.1 kg General appearance: PRESENT: no acute distress, cooperative - pleasant, well- developed, well-nourished Head exam: PRESENT: atraumatic, normocephalic Eye exam: PRESENT: conjunctiva pink, EOMI, PERRLA. ABSENT: scleral icterus Ear exam: PRESENT: normal external ear exam Mouth exam: PRESENT: moist, tongue midline Neck exam: ABSENT: carotid bruit, JVD, lymphadenopathy, thyromegaly Respiratory exam: PRESENT: clear to auscultation nigel, prolonged expiratory phas, symmetrical, tachypnea, other - Baseline oxygen requirement. ABSENT: rales, rhonchi, wheezes Cardiovascular exam: PRESENT: RRR, +S1, +S2. ABSENT: diastolic murmur, rubs, systolic murmur Pulses: PRESENT: normal dorsalis pedis pul Vascular exam: PRESENT: normal capillary refill GI/Abdominal exam: PRESENT: normal bowel sounds, soft. ABSENT: distended, guarding, mass, organolmegaly, rebound, tenderness Rectal exam: PRESENT: deferred Extremities exam: PRESENT: full ROM. ABSENT: calf tenderness, clubbing, pedal edema Neurological exam: PRESENT: alert, awake, oriented to person, oriented to place, oriented to time, oriented to situation, CN II-XII grossly intact. ABSENT: motor sensory deficit Psychiatric exam: PRESENT: appropriate affect, normal mood. ABSENT: homicidal ideation, suicidal ideation Skin exam: PRESENT: dry, erythema - RLE; significantly improved, intact, warm. ABSENT: cyanosis, rash Results Laboratory Results: 12/07/18 06:30 12/07/18 06:30 12/07/18 12/07/18 06:30 06:30 WBC 7.9 RBC 3.64 L Hgb 10.8 L Hct 33.5 L MCV 92 MCH 29.8 MCHC 32.4 RDW 18.9 H Plt Count 106 L Sodium 144.9 Potassium 4.8 Chloride 105 Carbon Dioxide 31 H Anion Gap 9 BUN 39 H Creatinine 1.90 H Est GFR ( Amer) 41 L Glucose 94 Calcium 9.3 12/02/18 12/02/18 12/02/18 18:31 18:31 18:31 Creatine Kinase 41 L CK-MB (CK-2) 1.21 Troponin I 0.023 NT-Pro-B Natriuret Pep 35032 H 12/03/18 12/03/18 12/03/18 01:00 01:00 06:51 Creatine Kinase 33 L 36 L CK-MB (CK-2) 1.08 Troponin I 0.022 NT-Pro-B Natriuret Pep 12/03/18 12/03/18 12/03/18 06:51 12:44 12:44 Creatine Kinase 41 L CK-MB (CK-2) 1.29 1.50 Troponin I 0.027 0.026 NT-Pro-B Natriuret Pep 12/03/18 12/04/18 12/04/18 12:44 15:00 15:00 Creatine Kinase 52 L CK-MB (CK-2) 1.92 Troponin I 0.071 NT-Pro-B Natriuret Pep 91258 H 12/04/18 12/04/18 12/05/18 20:45 20:45 02:50 Creatine Kinase 51 L 61 CK-MB (CK-2) 0.85 Troponin I 0.143 NT-Pro-B Natriuret Pep 12/05/18 02:50 Creatine Kinase CK-MB (CK-2) 1.33 Troponin I 0.105 NT-Pro-B Natriuret Pep Impressions: Chest X-Ray 12/04/18 00:00 IMPRESSION: Stable AP portable examination with small bilateral pleural effusions and bibasilar heterogeneous opacity. Gross cardiomegaly. Lung Scan-VQ NM 12/05/18 00:00 IMPRESSION: Limited ventilation examination. No significant perfusion defect. Findings are consistent with radiographic findings of pleural effusions and cardiomegaly. Low probability examination for pulmonary embolism by modified PIOPED criteria. Assessment and Plan - Diagnosis (1) Cellulitis and abscess of leg Is this a current diagnosis for this admission?: Yes Plan: Imprved; decreased erythema, edema, and tenderness. Drainage has resolved. Patient is found to have right lower leg erythema, serous drainage, and tenderness to touch. He is noted to have evidence of chronic peripheral vascular changes. Blood cultures negative at 24 hours. No history of MRSA. Continue IV Ancef. Plan to transition to Keflex tomorrow if patient remains afebrile with normal WBC. Keep extremity elevated. (2) Acute on chronic diastolic congestive heart failure Is this a current diagnosis for this admission?: Yes Plan: Significantly improved. Echocardiogram 2018 revealed LVEF 55% with mildly ventricular diastolic dysfunction. Dobutamine drip has been discontinued. Continue home dose diltiazem, metoprolol, and furosemide. Cardiac diet. Daily weights and strict I&O's. Weight is up 2.8 kg. IV fluids discontinued yesterday. Cardiology is consulted; appreciate Dr. Muhammad's assistance. (3) Acute and chronic respiratory failure with hypoxia Is this a current diagnosis for this admission?: Yes Plan: Acute exacerbation has resolved; secondary to pulmonary edema and CHF exacerbation. Now maintaining saturations on baseline oxygen requirement. Patient does have chronic respiratory failure related to CHF requiring 4 L oxygen via nasal cannula. Patient complains of frequent dyspnea related to chronic failure. Will trial low dose p.o. morphine for anxiety/respiratory discomfort. Palliative care consultation placed. (4) CAD (coronary artery disease) Is this a current diagnosis for this admission?: Yes Plan: Patient denies chest pain. Troponins are elevated, although, this is secondary to acute respiratory failure with hypoxia, CHF exacerbation, and sepsis related to cellulitis. Cardiology is consulted; primary evaluation management per their expertise. Continue aspirin, statin, and antihypertensives as addressed elsewhere. (5) Chronic atrial fibrillation Is this a current diagnosis for this admission?: Yes Plan: Rate controlled on home dose diltiazem and metoprolol. Chronic anticoagulation clarified by Dr. Muhammad; discontinued recently due to multiple falls with hip and neck injury. Patient is not a safe candidate for chronic anticoagulation. Continue daily aspirin therapy. Continue monitor on continuous cardiac telemetry. (6) Chronic kidney disease, stage 3 Is this a current diagnosis for this admission?: Yes Plan: Stable; at baseline. Avoid nephrotoxic medications as able. Optimize cardiac output. Daily chemistries. (7) Acute pulmonary edema Is this a current diagnosis for this admission?: Yes Plan: Resolved. Secondary to acute CHF exacerbation. Patient is now maintaining oxygen saturations on his baseline oxygen requirement with clear lung sounds. Speaking full sentences without increased work of breathing. Evaluation management of CHF as above. (8) Elevated troponin I level Is this a current diagnosis for this admission?: Yes Plan: Patient does have a history of [place] s/p 3 stents. He remains chest pain-free. Troponins likely elevated secondary to acute respiratory failure with hypoxia, CHF exacerbation, and sepsis. Now trending down. Cardiology is consulted. Evaluation management as above. (9) Constipated Is this a current diagnosis for this admission?: Yes Plan: Resolved. DulcoLax suppository and Soap suds enema x1 yesterday Continue daily Colace. Milk of Mag daily prn. (10) Anticoagulant long-term use Is this a current diagnosis for this admission?: Yes Plan: Discontinued due to fall risk. (11) Sepsis Is this a current diagnosis for this admission?: Yes Plan: Resolved; patient now afebrile x48 hours, normal WBCs, maintaining adequate blood pressures, vital signs otherwise stable. Secondary to lower extremity cellulitis. Chest x-ray is clear. Urinalysis is negative. Blood and urine cultures are negative at 48 hours. Patient was initially placed on IV meropenem and vancomycin when source was still an identified. Continue IV Ancef (12) Acute respiratory failure with hypoxia Is this a current diagnosis for this admission?: Yes Plan: As above. - Time Time Spent with patient: 15-24 minutes Medications reviewed and adjusted accordingly: Yes Anticipated discharge: Home with Homehealth Within: within 24 hours
[2018-12-07] MEDS ORDERED: LORAZEPAM 1 MG TABLET ONE (17:42)
[2018-12-07] MEDS ORDERED: LORAZEPAM 1 MG TABLET PO ONE (18:00)
[2018-12-07] MEDS: TEMAZEPAM 7.5 MG CAPSULE PO PRN (21:09)
[2018-12-07] MEDS: ATORVASTATIN CALCIUM 10 MG TABLET PO SCH (21:10)
[2018-12-08] MEDS: CEFAZOLIN 1 GM/D5W RTU 1 GM/50 ML RTUPB IV SCH ×2 (05:04→11:58)
[2018-12-08] MEDS: HYDRALAZINE HCL INJ/PF 20 MG/1 ML SDV IV PRN (05:04)
[2018-12-08] MEDS: PANTOPRAZOLE SODIUM 20 MG TABLET.DR PO SCH (05:04)
[2018-12-08 06:22] LABS: HEMATOCRIT 33.5 % (37.9-51.0); HEMOGLOBIN 10.8 g/dL (13.5-17.0); MEAN CORPUSCULAR HEMOGLOBIN 29.6 pg (27.0-33.4); MEAN CORPUSCULAR HGB CONC 32.1 g/dL (32.0-36.0); MEAN CORPUSCULAR VOLUME 92 fl (80-97); PLATELET COUNT 104 10^3/uL (150-450); RED BLOOD COUNT 3.64 10^6/uL (4.35-5.55)
[2018-12-08] MEDS: DOCUSATE SODIUM 100 MG CAPSULE PO SCH ×2 (09:14→17:18)
[2018-12-08] MEDS: DILTIAZEM HCL 240 MG CAPSULE.CR PO SCH (09:17)
[2018-12-08] MEDS: METOPROLOL SUCCINATE 50 MG TAB.SR.24H PO SCH ×2 (09:17→13:59)
[2018-12-08] MEDS: POTASSIUM CHLORIDE 10 MEQ CAPSULE.ER PO SCH ×2 (09:17→17:21)
[2018-12-08] MEDS: FINASTERIDE 5 MG TABLET PO SCH ×2 (09:17→17:21)
[2018-12-08] MEDS ORDERED: LORAZEPAM 0.5 MG TABLET PO PRN (12:36)
[2018-12-08] MEDS: CEPHALEXIN 500 MG CAPSULE PO SCH (17:21)
--- NOTE | 2018-12-08 18:54 | PDOC PROGRESS REPORT ---
Subjective Progress Note for:: 12/08/18 Subjective:: The patient is an 83 year old male with a past medical history significant for CHF, Afib, CAD, HTN, HLD, CKD, and BPH who was admitted 12/02/2018 for acute respiratory failure with hypoxia secondary to acute CHF exacerbation resulting in pulmonary edema. Patient then subsequently developed SIRS now found to have a right lower extremity cellulitis. Patient was seen on morning rounds. He is found resting in the recliner on his baseline oxygen requirement of 4 L/min. He reports he is concerned about discharge home. He did walk 25 feet w/ PT yesterday. However, feels that he is weak compared to prior to admission and asks about possible short term rehab. He denies fever, chills, chest pain, palpitations, cough, nausea, vomiting, diarrhea. Does continue to have dyspnea while at rest. No other questions or concerns at this time. Nursing notes that the patient frequently moans "oh me," when asked, patient states that he picked this up somewhere and just does this now. He does suggest that it may be part of his self-soothing related to dyspnea; will trial p.o. ativan. Reason For Visit: ACUTE RESPIRATORY FAILURE WITH HYPOXIA,ACUTE ON Physical Exam Vital Signs: Temp Pulse Resp BP Pulse Ox 97.5 F 66 16 138/63 H 98 12/08/18 16:00 12/08/18 16:00 12/08/18 16:00 12/08/18 11:53 12/08/18 16:00 Intake & Output 12/07/18 12/08/18 12/09/18 06:59 06:59 06:59 Intake Total 0448 448 4692 Output Total 500 550 200 Balance 1242 -50 810 Weight 70.1 kg 76.8 kg General appearance: PRESENT: no acute distress, cooperative, well-developed, well-nourished Head exam: PRESENT: atraumatic, normocephalic Eye exam: PRESENT: conjunctiva pink, EOMI, PERRLA. ABSENT: scleral icterus Ear exam: PRESENT: normal external ear exam Mouth exam: PRESENT: moist, tongue midline Neck exam: ABSENT: carotid bruit, JVD, lymphadenopathy, thyromegaly Respiratory exam: PRESENT: crackles - scant Rt lower [place], decreased breath sounds - bibasilar, prolonged expiratory phas, symmetrical, unlabored, other - baseline O2 requirement; dyspnea at rest. ABSENT: rales, rhonchi, wheezes Cardiovascular exam: PRESENT: RRR, +S1, +S2. ABSENT: diastolic murmur, rubs, systolic murmur Pulses: PRESENT: normal dorsalis pedis pul Vascular exam: PRESENT: normal capillary refill GI/Abdominal exam: PRESENT: normal bowel sounds, soft. ABSENT: distended, guarding, mass, organolmegaly, rebound, tenderness Rectal exam: PRESENT: deferred Extremities exam: PRESENT: full ROM. ABSENT: calf tenderness, clubbing, pedal edema Musculoskeletal exam: PRESENT: ambulatory - w/ front wheeled walker and assist Neurological exam: PRESENT: alert, awake, oriented to person, oriented to place, oriented to time, oriented to situation, CN II-XII grossly intact. ABSENT: motor sensory deficit Psychiatric exam: PRESENT: anxious, appropriate affect. ABSENT: homicidal ideation, suicidal ideation Skin exam: PRESENT: dry, intact, warm. ABSENT: cyanosis, rash Results Laboratory Results: 12/08/18 05:50 12/07/18 06:30 12/08/18 05:50 WBC 7.0 RBC 3.64 L Hgb 10.8 L Hct 33.5 L MCV 92 MCH 29.6 MCHC 32.1 RDW 19.0 H Plt Count 104 L 12/02/18 12/02/18 12/02/18 18:31 18:31 18:31 Creatine Kinase 41 L CK-MB (CK-2) 1.21 Troponin I 0.023 NT-Pro-B Natriuret Pep 09189 H 12/03/18 12/03/18 12/03/18 01:00 01:00 06:51 Creatine Kinase 33 L 36 L CK-MB (CK-2) 1.08 Troponin I 0.022 NT-Pro-B Natriuret Pep 12/03/18 12/03/18 12/03/18 06:51 12:44 12:44 Creatine Kinase 41 L CK-MB (CK-2) 1.29 1.50 Troponin I 0.027 0.026 NT-Pro-B Natriuret Pep 12/03/18 12/04/18 12/04/18 12:44 15:00 15:00 Creatine Kinase 52 L CK-MB (CK-2) 1.92 Troponin I 0.071 NT-Pro-B Natriuret Pep 38717 H 12/04/18 12/04/18 12/05/18 20:45 20:45 02:50 Creatine Kinase 51 L 61 CK-MB (CK-2) 0.85 Troponin I 0.143 NT-Pro-B Natriuret Pep 12/05/18 02:50 Creatine Kinase CK-MB (CK-2) 1.33 Troponin I 0.105 NT-Pro-B Natriuret Pep Impressions: Chest X-Ray 12/04/18 00:00 IMPRESSION: Stable AP portable examination with small bilateral pleural effusions and bibasilar heterogeneous opacity. Gross cardiomegaly. Lung Scan-VQ NM 12/05/18 00:00 IMPRESSION: Limited ventilation examination. No significant perfusion defect. Findings are consistent with radiographic findings of pleural effusions and cardiomegaly. Low probability examination for pulmonary embolism by modified PIOPED criteria. Assessment and Plan - Diagnosis (1) Cellulitis and abscess of leg Is this a current diagnosis for this admission?: Yes Plan: Significantly improved; decreased erythema. Edema, tenderness, and drainage have resolved. Afebrile w/ nml WBC. Patient is found to have right lower leg erythema, serous drainage, and tenderness to touch. He is noted to have evidence of chronic peripheral vascular changes. Blood cultures negative at 48 hours. No history of MRSA. Transition to Keflex to complete course of therapy. Keep extremity elevated. (2) Acute on chronic diastolic congestive heart failure Is this a current diagnosis for this admission?: Yes Plan: Acute exacerbation has resolved. Echocardiogram 2018 revealed LVEF 55% with mildly ventricular diastolic dysfunction. Dobutamine drip has been discontinued. Continue home dose diltiazem, metoprolol, and furosemide. Cardiac diet. Daily weights and strict I&O's. Cardiology is consulted; appreciate Dr. Muhammad's assistance. (3) Acute and chronic respiratory failure with hypoxia Is this a current diagnosis for this admission?: Yes Plan: Acute exacerbation has resolved; secondary to pulmonary edema and CHF exacerbation. Now maintaining saturations on baseline oxygen requirement. Patient does have chronic respiratory failure related to CHF requiring 4 L oxygen via nasal cannula. Patient complains of frequent dyspnea related to chronic failure. Will trial low dose p.o. ativan for anxiety/respiratory discomfort; nursing reports some improvement today. Repeat CXR due to persistent dyspnea at rest. Palliative care consultation placed. Will discuss w/ patient palliative care vs hospice option prior to d/c tomorrow. (4) CAD (coronary artery disease) Is this a current diagnosis for this admission?: Yes Plan: Patient denies chest pain. Troponins are elevated, although, this is secondary to acute respiratory failure with hypoxia, CHF exacerbation, and sepsis related to cellulitis. Cardiology is consulted; primary evaluation management per their expertise. Continue aspirin, statin, and antihypertensives as addressed elsewhere. (5) Chronic atrial fibrillation Is this a current diagnosis for this admission?: Yes Plan: Rate controlled on home dose diltiazem and metoprolol. Chronic anticoagulation clarified by Dr. Muhammad; discontinued recently due to multiple falls with hip and neck injury. Patient is not a safe candidate for chronic anticoagulation. Continue daily aspirin therapy. Continue monitor on continuous cardiac telemetry. (6) Chronic kidney disease, stage 3 Is this a current diagnosis for this admission?: Yes Plan: Stable; at baseline. Avoid nephrotoxic medications as able. Optimize cardiac output. Daily chemistries. (7) Acute pulmonary edema Is this a current diagnosis for this admission?: Yes Plan: Resolved. Secondary to acute CHF exacerbation. Patient is now maintaining oxygen saturations on his baseline oxygen requirement with clear lung sounds. Speaking full sentences without increased work of breathing. Evaluation management of CHF as above. (8) Elevated troponin I level Is this a current diagnosis for this admission?: Yes Plan: Patient does have a history of [place] s/p 3 stents. He remains chest pain-free. Troponins likely elevated secondary to acute respiratory failure with hypoxia, CHF exacerbation, and sepsis. Now trending down. Cardiology is consulted. Evaluation management as above. (9) Constipated Is this a current diagnosis for this admission?: Yes Plan: Resolved. DulcoLax suppository and Soap suds enema x1 yesterday Continue daily Colace. Milk of Mag daily prn. (10) Anticoagulant long-term use Is this a current diagnosis for this admission?: Yes Plan: Discontinued due to fall risk. (11) Sepsis Is this a current diagnosis for this admission?: Yes Plan: Resolved; patient now afebrile x48 hours, normal WBCs, maintaining adequate blood pressures, vital signs otherwise stable. Secondary to lower extremity cellulitis. Chest x-ray is clear. Urinalysis is negative. Blood and urine cultures are negative at 48 hours. Antibiotics as above. (12) Acute respiratory failure with hypoxia Is this a current diagnosis for this admission?: Yes Plan: As above.
[2018-12-08] MEDS: ATORVASTATIN CALCIUM 10 MG TABLET PO SCH (21:30)
[2018-12-08] MEDS: TEMAZEPAM 7.5 MG CAPSULE PO PRN (21:30)
--- NOTE | 2018-12-08 22:44 | Progress Note ---
Provider Note Provider Note: CARDIOLOGY PROGRESS NOTE by Dr. Evette Muhammad on 12/08/2018. Subjective: The patient denies any chest pain or discomfort. There is no shortness of breath. There is no PND orthopnea. There is no TIA CVA symptoms. The patient is afebrile. There is no symptoms a UTI. The patient denies any cough, wheezing or sputum production. Physical EXAMINATION: The patient appears to be in no acute distress. He appears to be chronically ill. Selected Entries 12/08/18 11:53 Temperature 97.6 F Temperature Axillary Source Pulse Rate 79 Respiratory 16 Rate Blood Pressure 138/63 H Blood Pressure 88 Mean BP Location Right Arm BP Position Sitting O2 Sat by Pulse 97 Oximetry Oxygen Flow 4.00 Rate Oxygen Delivery Nasal Cannula Method HEAD: Is atraumatic normocephalic. EYES: Pupils equal round regular reactive light accommodation. Extraocular movements are normal. There is no conjunctival pallor. There is no scleral icterus. EARS: Tympanic membranes are intact. External auditory canals are clear. NOSE: There is no deviated nasal septum. There is no inflammation of these mucous membrane. MOUTH: Mucous membranes of the mouth are moist tongue is moist. There is no ulcers. There is no bleeding from the gums. THROAT: There is no redness of the oropharynx, there is no exudates in the throat. SKIN: Is without any skin lesions or skin rashes. There is no petechiae or ecchymosis. NECK: Is supple. There is no JVD. Carotids are equal there is no bruit. There is no lymphadenopathy. There is no goiter. There is no accessory muscle respiration use. Trachea central. LUNGS: Shows bilateral rales of CHF. There is also an area of absent breath sounds below the area of rales. HEART: S1-S2 is heard. S1 is of variable intensity. There is no S3 gallop. There is no S4 gallop. There is systolic murmur left sternal border and the apex. There is no rub. ABDOMEN: Is soft. There is no hepatospleno megaly. Bowel sounds well heard. EXTREMITIES: Femorals are diminished. There is no femoral bruits. There is mild pedal edema with chronic venous stasis dermatitis. Leg pulses are diminished. There is no sinus or clubbing. [employer]: The patient is conscious awake alert oriented times with no focal deficits. PSYCHIATRIC: The patient judgment insight are intact his affect is normal. Labs- All tests 24 hr 12/08/18 05:50 WBC 7.0 RBC 3.64 L Hgb 10.8 L Hct 33.5 L MCV 92 MCH 29.6 MCHC 32.1 RDW 19.0 H Plt Count 104 L Chest X-Ray 12/02/18 00:00 IMPRESSION: Blunted costophrenic angles and increased opacity at the lower lungs could represent a combination of pleural fluid and atelectasis. Recommend follow-up. Cardiac silhouette is enlarged which could be secondary to cardiomegaly. Chest X-Ray 12/04/18 00:00 IMPRESSION: Stable AP portable examination with small bilateral pleural effusions and bibasilar heterogeneous opacity. Gross cardiomegaly. Lung Scan-VQ NM 12/05/18 00:00 IMPRESSION: Limited ventilation examination. No significant perfusion defect. Findings are consistent with radiographic findings of pleural effusions and cardiomegaly. Low probability examination for pulmonary embolism by modified PIOPED criteria. IMPRESSION/RECOMMENDATION: 1. Hypotension with fever. Most likely this is secondary infectious process.? Etiology. So far the blood culture and urine cultures are negative. Continue current broad-spectrum antibiotics empirically. The patient's ventilation/perfusion scan is negative for PE. The patient now is afebrile. H ypotension is resolved. Blood pressure is good without any pressor support. 2. Mildly elevated troponin levels. This is most likely secondary to supply demand mismatch. Troponins have trended down patient has no chest pain or discomfort. 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 Continue current treatment. 2. Complains of shortness of breath: Probably secondary to anxiety patient's physical examination is unremarkable. 3. Coronary artery disease: History of stents x3. Patient denies history of [place]. Will get records. There is no anginal symptoms. No evidence of acute coronary syndrome this admission. 4. Chronic atrial fibrillation: Note that the patient's heart rate seems to be controlled. Per discussion with the patient's daughter yesterday the patient has had frequent falls and also had injury to his neck. Hence his Coumadin has been stopped. Hence will not start the patient on any chronic anticoagulation. This has been discussed with the attending provider on the case. 5. 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 As mentioned earlier start the patient on a beta-anjel and MARY inhibitor. Medications reviewed. Management plan discussed with attending physician on the case. Medical decision making is of moderate complexity. 40 minutes spent on this patient with more than 50% of time spent in direct patient care cardiac status is stable. Will sign off.
[2018-12-09] MEDS: LORAZEPAM 0.5 MG TABLET PO PRN ×2 (00:27→21:13)
[2018-12-09] MEDS: CEPHALEXIN 500 MG CAPSULE PO SCH ×4 (00:27→17:42)
[2018-12-09] MEDS: PANTOPRAZOLE SODIUM 20 MG TABLET.DR PO SCH (05:17)
--- NOTE | 2018-12-09 08:30 | RADIOLOGY REPORT (SQ) ---
EXAM DESCRIPTION: CHEST SINGLE VIEW COMPLETED DATE/TIME: 12/08/2018 7:50 pm REASON FOR STUDY: dyspnea COMPARISON: AP view of the chest from 12/04/2018. EXAM PARAMETERS: NUMBER OF VIEWS: One view. TECHNIQUE: Single frontal radiographic view of the chest acquired. RADIATION DOSE: NA LIMITATIONS: None. FINDINGS: The cardiac silhouette is enlarged but stable. There is atherosclerotic calcification of the aortic arch. The mediastinal and hilar contours are unchanged. There are increased bibasilar pl eural and parenchymal opacities. There is no pneumothorax. There is no acute abnormality of the deyanira ged osseous structures. IMPRESSION: Cardiomegaly and increased bilateral pleural effusions. TECHNICAL DOCUMENTATION: JOB ID: [id number] [employer]- All Rights Reserved Reading location - IP/workstation name: [email or web address]
[2018-12-09] MEDS: FINASTERIDE 5 MG TABLET PO SCH (09:38)
[2018-12-09] MEDS: METOPROLOL SUCCINATE 50 MG TAB.SR.24H PO SCH (09:38)
[2018-12-09] MEDS: POTASSIUM CHLORIDE 10 MEQ CAPSULE.ER PO SCH ×2 (09:38→17:42)
[2018-12-09] MEDS: DOCUSATE SODIUM 100 MG CAPSULE PO SCH ×2 (09:39→17:39)
[2018-12-09] MEDS: DILTIAZEM HCL 240 MG CAPSULE.CR PO SCH (09:39)
[2018-12-09] MEDS ORDERED: FUROSEMIDE INJ/PF 20 MG/2 ML SDV IV ONE (12:00)
--- NOTE | 2018-12-09 17:28 | PDOC PROGRESS REPORT ---
Subjective Progress Note for:: 12/09/18 Subjective:: The patient is an 83 year old male with a past medical history significant for CHF, Afib, CAD, HTN, HLD, CKD, and BPH who was admitted 12/02/2018 for acute respiratory failure with hypoxia secondary to acute CHF exacerbation resulting in pulmonary edema. Patient then subsequently developed SIRS now found to have a right lower extremity cellulitis. Patient was seen on morning rounds. He is found resting in the recliner on his baseline oxygen requirement of 4 L/min. He reports he is unwell but is unable to specify further what it is that is troubling him today. He continues to moan frequently, but when asked if he is in pain, the patient states that he just " tends to do this". He does admit to being disappointed that [facility] was unable to provide him a bed offer. He indicates that he has a list of SNF's to review. He does continue to have shortness of breath, although this appears to be chronic and unchanged/not worsened from previously. He denies fever, chills, chest pain, palpitations, cough, nausea, vomiting, diarrhea. No other questions or concerns at this time. Nursing notes that the patient seemed more fatigued today; was unable to ambulate with physical therapy. However they do note that the patient frequently requests position changes and moves back and forth from the bed to the recliner several times throughout the day with standby assist for pivots. Reason For Visit: ACUTE RESPIRATORY FAILURE WITH HYPOXIA,ACUTE ON Physical Exam Vital Signs: Temp Pulse Resp BP Pulse Ox 97.9 F 66 16 158/69 H 93 12/09/18 04:13 12/09/18 14:00 12/09/18 04:13 12/09/18 04:13 12/09/18 04:13 Intake & Output 12/08/18 12/09/18 12/10/18 06:59 06:59 06:59 Intake Total 500 1605 Output Total 550 750 Balance -50 855 Weight 76.8 kg 78.3 kg General appearance: PRESENT: no acute distress, cooperative - Pleasant, well- developed, well-nourished Head exam: PRESENT: atraumatic, normocephalic Eye exam: PRESENT: conjunctiva pink, EOMI, PERRLA. ABSENT: scleral icterus Ear exam: PRESENT: normal external ear exam Mouth exam: PRESENT: moist, tongue midline Neck exam: ABSENT: carotid bruit, JVD, lymphadenopathy, thyromegaly Respiratory exam: PRESENT: crackles - Scant bibasilar, prolonged expiratory phas, symmetrical, tachypnea, unlabored, other - Supplemental oxygen via nasal cannula. ABSENT: rales, rhonchi, wheezes Cardiovascular exam: PRESENT: RRR, +S1, +S2. ABSENT: diastolic murmur, rubs, systolic murmur Pulses: PRESENT: normal dorsalis pedis pul Vascular exam: PRESENT: normal capillary refill GI/Abdominal exam: PRESENT: normal bowel sounds, soft. ABSENT: distended, guarding, mass, organolmegaly, rebound, tenderness Rectal exam: PRESENT: deferred Extremities exam: PRESENT: full ROM. ABSENT: calf tenderness, clubbing, pedal edema Neurological exam: PRESENT: alert, awake, oriented to person, oriented to place, oriented to time, oriented to situation, CN II-XII grossly intact. ABSENT: motor sensory deficit Psychiatric exam: PRESENT: anxious, normal mood. ABSENT: homicidal ideation, suicidal ideation Skin exam: PRESENT: dry, intact, warm. ABSENT: cyanosis, rash Results Laboratory Results: 12/08/18 05:50 12/07/18 06:30 12/02/18 12/02/18 12/02/18 18:31 18:31 18:31 Creatine Kinase 41 L CK-MB (CK-2) 1.21 Troponin I 0.023 NT-Pro-B Natriuret Pep [id number] H 12/03/18 12/03/18 12/03/18 01:00 01:00 06:51 Creatine Kinase 33 L 36 L CK-MB (CK-2) 1.08 Troponin I 0.022 NT-Pro-B Natriuret Pep 12/03/18 12/03/18 12/03/18 06:51 12:44 12:44 Creatine Kinase 41 L CK-MB (CK-2) 1.29 1.50 Troponin I 0.027 0.026 NT-Pro-B Natriuret Pep 12/03/18 12/04/18 12/04/18 12:44 15:00 15:00 Creatine Kinase 52 L CK-MB (CK-2) 1.92 Troponin I 0.071 NT-Pro-B Natriuret Pep [id number] H 12/04/18 12/04/18 12/05/18 20:45 20:45 02:50 Creatine Kinase 51 L 61 CK-MB (CK-2) 0.85 Troponin I 0.143 NT-Pro-B Natriuret Pep 12/05/18 02:50 Creatine Kinase CK-MB (CK-2) 1.33 Troponin I 0.105 NT-Pro-B Natriuret Pep Impressions: Lung Scan-VQ NM 12/05/18 00:00 IMPRESSION: Limited ventilation examination. No significant perfusion defect. Findings are consistent with radiographic findings of pleural effusions and c ardiomegaly. Low probability examination for pulmonary embolism by modified PIOPED criteria. Chest X-Ray 12/08/18 00:00 IMPRESSION: Cardiomegaly and increased bilateral pleural effusions. Assessment and Plan - Diagnosis (1) Cellulitis and abscess of leg Is this a current diagnosis for this admission?: Yes Plan: Significantly improved; decreased erythema. Edema, tenderness, and drainage have resolved. Afebrile w/ nml WBC. Patient is found to have right lower leg erythema, serous drainage, and tenderness to touch. He is noted to have evidence of chronic peripheral vascular changes. Blood cultures negative at 48 hours. No history of MRSA. Continue Keflex to complete course of therapy. Keep extremity elevated. (2) Acute on chronic diastolic congestive heart failure Is this a current diagnosis for this admission?: Yes Plan: Acute exacerbation has resolved. Echocardiogram 2018 revealed LVEF 55% with mildly ventricular diastolic dysfunction. Dobutamine drip has been discontinued. Repeat chest x-ray demonstrated slightly worsened pulmonary edema. Of note, weight change from 12/07 to 12/08 of 6.7 kg is related to change in bed and so use of new scale. Even so, patient is (+) 4-5 kg Will provide IV furosemide x1. Continue home dose diltiazem, metoprolol, and furosemide. Cardiac diet. Daily weights and strict I&O's. Cardiology was consulted; appreciate Dr. Muhammad's assistance. Dr. Waters has signed off. (3) Acute and chronic respiratory failure with hypoxia Is this a current diagnosis for this admission?: Yes Plan: Acute exacerbation has resolved; secondary to pulmonary edema and CHF exacerba tion. Now maintaining saturations on baseline oxygen requirement. Patient does have chronic respiratory failure related to CHF requiring 4 L oxygen via nasal cannula. Repeat CXR dose show slightly worsened pulmonary edema; additional furosemide today. Patient complains of frequent dyspnea related to chronic failure. Will trial low dose p.o. ativan for anxiety/respiratory discomfort; nursing r eports some improvement today. Palliative care consultation placed. (4) CAD (coronary artery disease) Is this a current diagnosis for this admission?: Yes Plan: Patient denies chest pain. Troponins are elevated, although, this is secondary to acute respiratory failure with hypoxia, CHF exacerbation, and sepsis related to cellulitis. Cardiology is consulted; primary evaluation management per their expertise. Continue aspirin, statin, and antihypertensives as addressed elsewhere. (5) Chronic atrial fibrillation Is this a current diagnosis for this admission?: Yes Plan: Rate controlled on home dose diltiazem and metoprolol. Chronic anticoagulation clarified by Dr. Muhammad; discontinued recently due to multiple falls with hip and neck injury. Patient is not a safe candidate for chronic anticoagulation. Continue daily aspirin therapy. Continue monitor on continuous cardiac telemetry. (6) Chronic kidney disease, stage 3 Is this a current diagnosis for this admission?: Yes Plan: Stable; at baseline. Avoid nephrotoxic medications as able. Optimize cardiac output. Daily chemistries. (7) Acute pulmonary edema Is this a current diagnosis for this admission?: Yes Plan: Resolved. Secondary to acute CHF exacerbation. Patient is now maintaining oxygen saturations on his baseline oxygen requirement with clear lung sounds. Speaking full sentences without increased work of breathing. Evaluation management of CHF as above. (8) Elevated troponin I level Is this a current diagnosis for this admission?: Yes Plan: Patient does have a history of [place] s/p 3 stents. He remains chest pain-free. Troponins likely elevated secondary to acute respiratory failure with hypoxia, CHF exacerbation, and sepsis. Now trending down. Cardiology is consulted. Evaluation management as above. (9) Constipated Is this a current diagnosis for this admission?: Yes Plan: Resolved. DulcoLax suppository and Soap suds enema x1 yesterday Continue daily Colace. Milk of Mag daily prn. (10) Anticoagulant long-term use Is this a current diagnosis for this admission?: Yes Plan: Discontinued due to fall risk. (11) Sepsis Is this a current diagnosis for this admission?: Yes Plan: Resolved; patient now afebrile x48 hours, normal WBCs, maintaining adequate blood pressures, vital signs otherwise stable. Secondary to lower extremity cellulitis. Chest x-ray is clear. Urinalysis is negative. Blood and urine cultures are negative at 48 hours. Antibiotics as above. (12) Acute respiratory failure with hypoxia Is this a current diagnosis for this admission?: Yes Plan: As above. - Time Time Spent with patient: 15-24 minutes Medications reviewed and adjusted accordingly: Yes Anticipated discharge: SNF Within: when bed available
[2018-12-09] MEDS: ATORVASTATIN CALCIUM 10 MG TABLET PO SCH (21:13)
[2018-12-10] MEDS: CEPHALEXIN 500 MG CAPSULE PO SCH ×4 (00:13→17:18)
[2018-12-10] MEDS: PANTOPRAZOLE SODIUM 20 MG TABLET.DR PO SCH (05:17)
[2018-12-10] MEDS: DOCUSATE SODIUM 100 MG CAPSULE PO SCH ×2 (09:22→17:18)
[2018-12-10] MEDS: METOPROLOL SUCCINATE 50 MG TAB.SR.24H PO SCH (09:22)
[2018-12-10] MEDS: LORAZEPAM 0.5 MG TABLET PO PRN ×3 (09:22→19:57)
[2018-12-10] MEDS: POTASSIUM CHLORIDE 10 MEQ CAPSULE.ER PO SCH ×2 (09:22→17:18)
[2018-12-10] MEDS: FUROSEMIDE 40 MG TABLET PO SCH (09:22)
[2018-12-10] MEDS: FINASTERIDE 5 MG TABLET PO SCH (09:22)
[2018-12-10] MEDS: DILTIAZEM HCL 240 MG CAPSULE.CR PO SCH (09:24)
[2018-12-10] MEDS: HYDRALAZINE HCL INJ/PF 20 MG/1 ML SDV IV PRN (13:27)
--- NOTE | 2018-12-10 17:35 | ADVANCED CARE ---
- Diagnosis (1) Cellulitis and abscess of leg Diagnosis Current: Yes (2) Acute on chronic diastolic congestive heart failure Diagnosis Current: Yes (3) Acute and chronic respiratory failure with hypoxia Diagnosis Current: Yes (4) CAD (coronary artery disease) Diagnosis Current: Yes (5) Chronic atrial fibrillation Diagnosis Current: Yes (6) Chronic kidney disease, stage 3 Diagnosis Current: Yes (7) Acute pulmonary edema Diagnosis Current: Yes (8) Elevated troponin I level Diagnosis Current: Yes (9) Constipated Diagnosis Current: Yes (10) Anticoagulant long-term use Diagnosis Current: Yes (11) Sepsis Diagnosis Current: Yes (12) Acute respiratory failure with hypoxia Diagnosis Current: Yes Attendance: The patient, Kody Coy Resuscitation Status: Do Not Resuscitate Discussion: Discussed the patient's chronic respiratory failure secondary to heart failure and persistent dyspnea/air hunger. Did discuss with the patient that his stable vital signs and laboratory evaluation suggests that his air hunger may be a warning sign his CHF is has managed as it is possible and that he may be reaching the limits of what medicine has offered. Patient informed me that he has discussed hospice in the past and that he recently told his that he may be "getting ready to move on" and that he is "nearing the end of the road." The patient remains interested in the possibility of short term rehab with his goal being to return home where he lives with his . He was informed that I did not believe that he had much strength left in him to tolerate rehab. Patient acknowledged and stated he was worried about the same. We discussed that the goals of hospice are to ensure that he is comfortable and that his symptoms are managed to the best possible, and that with hospice services he may be able to return home sooner. The patient thanked me for talking with him and said that he "had a lot to think on." At this time, patient is a DNR/DNI and is interested in meeting w/ Palliative Care/Hospice to discuss the services offered. Care Planning Goals: DNR/DNI Patient would like to meet with Palliative Care team to discuss palliative vs hospice option. Recommend patient consider both and discuss with . Time Spent: 20 min
--- NOTE | 2018-12-10 17:44 | PDOC PROGRESS REPORT ---
Subjective Progress Note for:: 12/10/18 Subjective:: The patient is an 83 year old male with a past medical history significant for CHF, Afib, CAD, HTN, HLD, CKD, and BPH who was admitted 12/02/2018 for acute respiratory failure with hypoxia secondary to acute CHF exacerbation resulting in pulmonary edema. Patient then subsequently developed SIRS now found to have a right lower extremity cellulitis. Patient was seen on afternoon rounds. He is found resting in bed on his baseline oxygen requirement of 4 L/min. He reports he is unwell; states that he feels short of breath. He further states that he does not feel that he is any worse than he has been; he just is not improved. He denies fever, chills, chest pain, palpitations, cough, nausea, vomiting, diarrhea. Long discussion had regarding Palliative Care vs Hospice services; see separate ACP note. Nursing reports slight improvement in dyspnea w/ Ativan; will try does/frequency increase. Reason For Visit: ACUTE RESPIRATORY FAILURE WITH HYPOXIA,ACUTE ON Physical Exam Vital Signs: Temp Pulse Resp BP Pulse Ox 97.2 F 66 16 138/56 H 95 12/10/18 15:45 12/10/18 15:45 12/10/18 15:45 12/10/18 15:45 12/10/18 15:45 Intake & Output 12/09/18 12/10/18 12/11/18 06:59 06:59 06:59 Intake Total 1605 720 450 Output Total 750 450 300 Balance 855 270 150 Weight 78.3 kg 64.8 kg General appearance: PRESENT: no acute distress, cooperative - pleasant, thin, well-developed, well-nourished Head exam: PRESENT: atraumatic, normocephalic Eye exam: PRESENT: conjunctiva pink, EOMI, PERRLA. ABSENT: scleral icterus Ear exam: PRESENT: normal external ear exam Mouth exam: PRESENT: moist, tongue midline Neck exam: ABSENT: carotid bruit, JVD, lymphadenopathy, thyromegaly Respiratory exam: PRESENT: accessory muscle use, decreased breath sounds - throughout, prolonged expiratory phas, symmetrical, tachypnea, other - supplemental oxygen. ABSENT: rales, rhonchi, wheezes Cardiovascular exam: PRESENT: RRR, +S1, +S2. ABSENT: diastolic murmur, rubs, systolic murmur Pulses: PRESENT: normal dorsalis pedis pul Vascular exam: PRESENT: normal capillary refill GI/Abdominal exam: PRESENT: normal bowel sounds, soft. ABSENT: distended, guarding, mass, organolmegaly, rebound, tenderness Rectal exam: PRESENT: deferred Extremities exam: PRESENT: full ROM. ABSENT: calf tenderness, clubbing, pedal edema Neurological exam: PRESENT: alert, awake, oriented to person, oriented to place, oriented to time, oriented to situation, CN II-XII grossly intact. ABSENT: motor sensory deficit Psychiatric exam: PRESENT: anxious, normal mood. ABSENT: homicidal ideation, suicidal ideation Skin exam: PRESENT: dry, intact, warm. ABSENT: cyanosis, rash Results Laboratory Results: 12/08/18 05:50 12/07/18 06:30 12/04/18 17:45 Blood Blood Culture - Final NO GROWTH IN 5 DAYS 12/04/18 17:50 Blood Blood Culture - Final NO GROWTH IN 5 DAYS 12/02/18 12/02/18 12/02/18 18:31 18:31 18:31 Creatine Kinase 41 L CK-MB (CK-2) 1.21 Troponin I 0.023 NT-Pro-B Natriuret Pep [id number] H 12/03/18 12/03/18 12/03/18 01:00 01:00 06:51 Creatine Kinase 33 L 36 L CK-MB (CK-2) 1.08 Troponin I 0.022 NT-Pro-B Natriuret Pep 12/03/18 12/03/18 12/03/18 06:51 12:44 12:44 Creatine Kinase 41 L CK-MB (CK-2) 1.29 1.50 Troponin I 0.027 0.026 NT-Pro-B Natriuret Pep 12/03/18 12/04/18 12/04/18 12:44 15:00 15:00 Creatine Kinase 52 L CK-MB (CK-2) 1.92 Troponin I 0.071 NT-Pro-B Natriuret Pep [id number] H 12/04/18 12/04/18 12/05/18 20:45 20:45 02:50 Creatine Kinase 51 L 61 CK-MB (CK-2) 0.85 Troponin I 0.143 NT-Pro-B Natriuret Pep 12/05/18 02:50 Creatine Kinase CK-MB (CK-2) 1.33 Troponin I 0.105 NT-Pro-B Natriuret Pep Impressions: Lung Scan-VQ NM 12/05/18 00:00 IMPRESSION: Limited ventilation examination. No significant perfusion defect. Findings are consistent with radiographic findings of pleural effusions and cardiomegaly. Low probability examination for pulmonary embolism by modified PIOPED criteria. Chest X-Ray 12/08/18 00:00 IMPRESSION: Cardiomegaly and increased bilateral pleural effusions. Assessment and Plan - Diagnosis (1) Cellulitis and abscess of leg Is this a current diagnosis for this admission?: Yes Plan: Resolved. Patient was found to have right lower leg erythema, serous drainage, and tenderness to touch. He is noted to have evidence of chronic peripheral vascular changes. Blood cultures negative No history of MRSA. Completed full course of antibiotics. (2) CHF (congestive heart failure) Qualifiers: Heart failure type: diastolic Heart failure chronicity: acute on chronic Qualified Code(s): I50.33 - Acute on chronic diastolic (congestive) heart failure Is this a current diagnosis for this admission?: Yes Plan: Acute exacerbation has resolved. Echocardiogram 2018 revealed LVEF 55% with mildly ventricular diastolic dysfunction. Dobutamine drip has been discontinued. Repeat chest x-ray demonstrated slightly worsened pulmonary edema. Received IV furosemide x 1 Continue home dose diltiazem, metoprolol, and furosemide. Cardiac diet. Daily weights and strict I&O's. Cardiology was consulted; appreciate Dr. Muhammad's assistance. Dr. aWters has signed off. (3) Acute and chronic respiratory failure with hypoxia Is this a current diagnosis for this admission?: Yes Plan: Acute exacerbation has resolved; secondary to pulmonary edema and CHF exacerbation. Now maintaining saturations on baseline oxygen requirement. Patient does have chronic respiratory failure related to CHF requiring 4 L oxygen via nasal cannula. Repeat CXR dose show slightly worsened pulmonary edema; additional furosemide yesterday Continued air hunger 2/2 CHF; likely end stage disease at this time. Patient complains of frequent dyspnea related to chronic failure. Will trial low dose p.o. ativan for anxiety/respiratory discomfort; nursing reports some improvement Palliative care consultation placed. See separate ACP note; patient considering hospice services. (4) CAD (coronary artery disease) Is this a current diagnosis for this admission?: Yes Plan: Patient denies chest pain. Troponins are elevated, although, this is secondary to acute respiratory failure with hypoxia, CHF exacerbation, and sepsis related to cellulitis. Cardiology is consulted; primary evaluation management per their expertise. Continue aspirin, statin, and antihypertensives as addressed elsewhere. (5) Chronic atrial fibrillation Is this a current diagnosis for this admission?: Yes Plan: Rate controlled on home dose diltiazem and metoprolol. Chronic anticoagulation clarified by Dr. Muhammad; discontinued recently due to multiple falls with hip and neck injury. Patient is not a safe candidate for chronic anticoagulation. Continue daily aspirin therapy. Continue monitor on continuous cardiac telemetry. (6) Chronic kidney disease, stage 3 Is this a current diagnosis for this admission?: Yes Plan: Stable; at baseline. Avoid nephrotoxic medications as able. Optimize cardiac output. Daily chemistries. (7) Acute pulmonary edema Is this a current diagnosis for this admission?: Yes Plan: Resolved. Secondary to acute CHF exacerbation. Patient is now maintaining oxygen saturations on his baseline oxygen requirement with clear lung sounds. Speaking full sentences without increased work of breathing. Evaluation management of CHF as above. (8) Elevated troponin I level Is this a current diagnosis for this admission?: Yes Plan: Patient does have a history of [place] s/p 3 stents. He remains chest pain-free. Troponins likely elevated secondary to acute respiratory failure with hypoxia, CHF exacerbation, and sepsis. Now trending down. Cardiology is consulted. Evaluation management as above. (9) Constipated Is this a current diagnosis for this admission?: Yes Plan: Resolved. DulcoLax suppository and Soap suds enema x1 yesterday Continue daily Colace. Milk of Mag daily prn. (10) Anticoagulant long-term use Is this a current diagnosis for this admission?: Yes Plan: Discontinued due to fall risk. (11) Sepsis Is this a current diagnosis for this admission?: Yes Plan: Resolved; patient now afebrile x48 hours, normal WBCs, maintaining adequate blood pressures, vital signs otherwise stable. Secondary to lower extremity cellulitis. Chest x-ray is clear. Urinalysis is negative. Blood and urine cultures are negative at 48 hours. Antibiotics as above. (12) Acute respiratory failure with hypoxia Is this a current diagnosis for this admission?: Yes Plan: As above. - Time Time Spent with patient: 15-24 minutes Medications reviewed and adjusted accordingly: Yes Anticipated discharge: SNF - vs home w/ Palliative Care and home health services Within: within 48 hours
[2018-12-10] MEDS: ATORVASTATIN CALCIUM 10 MG TABLET PO SCH (21:44)
[2018-12-11] MEDS: LORAZEPAM 0.5 MG TABLET PO PRN ×4 (00:53→21:59)
[2018-12-11 04:47] LABS: HEMATOCRIT 34.1 % (37.9-51.0); MEAN CORPUSCULAR HEMOGLOBIN 29.8 pg (27.0-33.4); MEAN CORPUSCULAR HGB CONC 32.2 g/dL (32.0-36.0); MEAN CORPUSCULAR VOLUME 93 fl (80-97); PLATELET COUNT 121 10^3/uL (150-450); RED BLOOD COUNT 3.68 10^6/uL (4.35-5.55); RED CELL DISTRIBUTION WIDTH 19.2 % (11.5-14.0); WHITE BLOOD COUNT 9.3 10^3/uL (4.0-10.5)
[2018-12-11 04:53] LABS: ANION GAP 10 (5-19); BLOOD UREA NITROGEN 37 mg/dL (7-20); CALCIUM 9.8 mg/dL (8.4-10.2); CARBON DIOXIDE 30 mmol/L (22-30); CHLORIDE 107 mmol/L (98-107); GLUCOSE 104 mg/dL (75-110)
[2018-12-11] MEDS: PANTOPRAZOLE SODIUM 20 MG TABLET.DR PO SCH (07:05)
[2018-12-11] MEDS: DOCUSATE SODIUM 100 MG CAPSULE PO SCH ×2 (09:09→17:48)
[2018-12-11] MEDS: DILTIAZEM HCL 180 MG CAPSULE.CR PO SCH (09:09)
[2018-12-11] MEDS: METOPROLOL SUCCINATE 50 MG TAB.SR.24H PO SCH ×2 (09:09→22:01)
[2018-12-11] MEDS: FUROSEMIDE 40 MG TABLET PO SCH (09:09)
[2018-12-11] MEDS: POTASSIUM CHLORIDE 10 MEQ CAPSULE.ER PO SCH ×2 (09:09→17:48)
[2018-12-11] MEDS: FINASTERIDE 5 MG TABLET PO SCH (09:09)
--- NOTE | 2018-12-11 18:47 | PDOC PROGRESS REPORT ---
Subjective Progress Note for:: 12/11/18 Subjective:: The patient is an 83 year old male with a past medical history significant for CHF, Afib, CAD, HTN, HLD, CKD, and BPH who was admitted 12/02/2018 for acute respiratory failure with hypoxia secondary to acute CHF exacerbation resulting in pulmonary edema. Patient then subsequently developed SIRS now found to have a right lower extremity cellulitis. Patient was seen on afternoon rounds with patient's daughter/POA at bedside. He is found resting in bed on his baseline oxygen requirement of 4 L/min. He is sleeping comfortably at this time. Patient's daughter reports that this is the best he has appeared in several days; she is appreciative of the addition of p .o. Ativan for his anxiety/air hunger. She does asked me not to wake him. Patient's daughter and I had a long discussion with regard to the feasibility of discharge to short-term rehab and my expectation that the patient would not do well in this environment due to his chronic severe respiratory failure. Introduced the concept of discharge to home with hospice services. The daughter believes this to be an a better arrangement and requests to speak with discharge planning. Discharge planning is updated on change of disposition from a short-term rehab to home with hospice services. Nursing reports improvement in comfort/dyspnea with use of PRN Ativan. They do request to decrease dose slightly but to allow for more frequent administration. Reason For Visit: ACUTE RESPIRATORY FAILURE WITH HYPOXIA,ACUTE ON Physical Exam Vital Signs: Temp Pulse Resp BP Pulse Ox 97.3 F 83 18 149/75 H 94 12/11/18 11:16 12/11/18 14:00 12/11/18 11:16 12/11/18 11:16 12/11/18 11:16 Intake & Output 12/10/18 12/11/18 12/12/18 06:59 06:59 06:59 Intake Total 720 910 360 Output Total 450 425 Balance 270 485 360 Weight 64.8 kg 63 kg General appearance: PRESENT: no acute distress, thin, well-developed, well- nourished Head exam: PRESENT: atraumatic, normocephalic Ear exam: PRESENT: normal external ear exam Mouth exam: PRESENT: moist, tongue midline Neck exam: ABSENT: carotid bruit, JVD, lymphadenopathy, thyromegaly Respiratory exam: PRESENT: crackles - Fine crackles bibasilar, decreased breath sounds, symmetrical, unlabored, other - Supplemental oxygen by nasal cannula. ABSENT: rales, rhonchi, wheezes Cardiovascular exam: PRESENT: RRR, +S1, +S2. ABSENT: diastolic murmur, rubs, systolic murmur Pulses: PRESENT: normal dorsalis pedis pul Vascular exam: PRESENT: normal capillary refill Rectal exam: PRESENT: deferred Extremities exam: PRESENT: full ROM Neurological exam: PRESENT: CN II-XII grossly intact, other - Sleeping soundly; did not wake patient for exam Skin exam: PRESENT: dry, intact, warm. ABSENT: cyanosis, rash Results Laboratory Results: 12/11/18 04:18 12/11/18 04:18 12/11/18 12/11/18 04:18 04:18 WBC 9.3 RBC 3.68 L Hgb 11.0 L Hct 34.1 L MCV 93 MCH 29.8 MCHC 32.2 RDW 19.2 H Plt Count 121 L Sodium 146.6 H Potassium 5.0 Chloride 107 Carbon Dioxide 30 Anion Gap 10 BUN 37 H Creatinine 1.70 H Est GFR ( Amer) 47 L Glucose 104 Calcium 9.8 12/02/18 12/02/18 12/02/18 18:31 18:31 18:31 Creatine Kinase 41 L CK-MB (CK-2) 1.21 Troponin I 0.023 NT-Pro-B Natriuret Pep [id number] H 12/03/18 12/03/18 12/03/18 01:00 01:00 06:51 Creatine Kinase 33 L 36 L CK-MB (CK-2) 1.08 Troponin I 0.022 NT-Pro-B Natriuret Pep 12/03/18 12/03/18 12/03/18 06:51 12:44 12:44 Creatine Kinase 41 L CK-MB (CK-2) 1.29 1.50 Troponin I 0.027 0.026 NT-Pro-B Natriuret Pep 12/03/18 12/04/18 12/04/18 12:44 15:00 15:00 Creatine Kinase 52 L CK-MB (CK-2) 1.92 Troponin I 0.071 NT-Pro-B Natriuret Pep [id number] H 12/04/18 12/04/18 12/05/18 20:45 20:45 02:50 Creatine Kinase 51 L 61 CK-MB (CK-2) 0.85 Troponin I 0.143 NT-Pro-B Natriuret Pep 12/05/18 02:50 Creatine Kinase CK-MB (CK-2) 1.33 Troponin I 0.105 NT-Pro-B Natriuret Pep Impressions: Lung Scan-VQ NM 12/05/18 00:00 IMPRESSION: Limited ventilation examination. No significant perfusion defect. Findings are consistent with radiographic findings of pleural effusions and cardiomegaly. Low probability examination for pulmonary embolism by modified PIOPED criteria. Chest X-Ray 12/08/18 00:00 IMPRESSION: Cardiomegaly and increased bilateral pleural effusions. Assessment and Plan - Diagnosis (1) Cellulitis and abscess of leg Is this a current diagnosis for this admission?: Yes Plan: Resolved. Patient was found to have right lower leg erythema, serous drainage, and tenderness to touch. He is noted to have evidence of chronic peripheral vascular changes. Blood cultures negative No history of MRSA. Completed full course of antibiotics. (2) CHF (congestive heart failure) Qualifiers: Heart failure type: diastolic Heart failure chronicity: acute on chronic Qualified Code(s): I50.33 - Acute on chronic diastolic (congestive) heart failure Is this a current diagnosis for this admission?: Yes Plan: Acute exacerbation has resolved. Echocardiogram 2018 revealed LVEF 55% with mildly ventricular diastolic dysfunction. Dobutamine drip has been discontinued. Repeat chest x-ray demonstrated slightly worsened pulmonary edema. Received IV furosemide x 1 Continue home dose diltiazem, metoprolol, and furosemide. Cardiac diet. Daily weights and strict I&O's. Cardiology was consulted; appreciate Dr. Muhammad's assistance. Dr. Waters has signed off. (3) Acute and chronic respiratory failure with hypoxia Is this a current diagnosis for this admission?: Yes Plan: Acute exacerbation has resolved; secondary to pulmonary edema and CHF exacerbation. Now maintaining saturations on baseline oxygen requirement. Patient does have chronic respiratory failure related to CHF requiring 4 L oxy gen via nasal cannula. Repeat CXR dose show slightly worsened pulmonary edema; additional furosemide yesterday Continued air hunger 2/2 CHF; likely end stage disease at this time. Patient complains of frequent dyspnea related to chronic failure. Will trial low dose p.o. ativan for anxiety/respiratory discomfort; nursing reports significant improvement Patient and family members interested in discharge to hospice; discharge planning made aware. See separate ACP note. (4) CAD (coronary artery disease) Is this a current diagnosis for this admission?: Yes Plan: Patient denies chest pain. Troponins are elevated, although, this is secondary to acute respiratory failure with hypoxia, CHF exacerbation, and sepsis related to cellulitis. Cardiology is consulted; primary evaluation management per their expertise. Continue aspirin, statin, and antihypertensives as addressed elsewhere. (5) Chronic atrial fibrillation Is this a current diagnosis for this admission?: Yes Plan: Rate controlled on home dose diltiazem and metoprolol. Chronic anticoagulation clarified by Dr. Muhammad; discontinued recently due to multiple falls with hip and neck injury. Patient is not a safe candidate for chronic anticoagulation. Continue daily aspirin therapy. Continue monitor on continuous cardiac telemetry. (6) Chronic kidney disease, stage 3 Is this a current diagnosis for this admission?: Yes Plan: Stable; at baseline. Avoid nephrotoxic medications as able. Optimize cardiac output. Daily chemistries. (7) Acute pulmonary edema Is this a current diagnosis for this admission?: Yes Plan: Resolved. Secondary to acute CHF exacerbation. Patient is now maintaining oxygen saturations on his baseline oxygen requirement with clear lung sounds. Speaking full sentences without increased work of breathing. Evaluation management of CHF as above. 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 He remains chest pain-free. Troponins likely elevated secondary to acute respiratory failure with hypoxia, CHF exacerbation, and sepsis. Now trending down. Cardiology is consulted. Evaluation management as above. (9) Constipated Is this a current diagnosis for this admission?: Yes Plan: Resolved. DulcoLax suppository and Soap suds enema x1 yesterday Continue daily Colace. Milk of Mag daily prn. (10) Anticoagulant long-term use Is this a current diagnosis for this admission?: Yes Plan: Discontinued due to fall risk. (11) Sepsis Is this a current diagnosis for this admission?: Yes Plan: Resolved; patient now afebrile x48 hours, normal WBCs, maintaining adequate bloo d pressures, vital signs otherwise stable. Secondary to lower extremity cellulitis. Chest x-ray is clear. Urinalysis is negative. Blood and urine cultures are negative at 48 hours. Antibiotics as above. (12) Acute respiratory failure with hypoxia Is this a current diagnosis for this admission?: Yes Plan: As above. - Time Time Spent with patient: 35 or more minutes Medications reviewed and adjusted accordingly: Yes Anticipated discharge: Hospice - Home hospice services. Within: within 24 hours - Plan Summary Plan Summary: Discussed with patient yesterday; interested in discharge to home with hospice services. Discussed with patient's daughter today; he was sleeping comfortably and she did ask me not to wake him. She agrees with the idea of discharge to hospice over discharge to SNF for short-term rehab. She does ask for me to make these arrangements; discharge planning is notified. Anticipate that patient will discharge to home with hospice services once he has been accepted to hospice services; likely discharge tomorrow.
[2018-12-11] MEDS: ATORVASTATIN CALCIUM 10 MG TABLET PO SCH (21:58)
[2018-12-11] MEDS: BUSPIRONE HCL 10 MG TABLET PO SCH (22:02)
[2018-12-12] MEDS: LORAZEPAM 0.5 MG TABLET PO PRN ×3 (04:35→22:52)
[2018-12-12] MEDS: PANTOPRAZOLE SODIUM 20 MG TABLET.DR PO SCH (07:04)
[2018-12-12] MEDS: BUSPIRONE HCL 10 MG TABLET PO SCH ×2 (08:42→22:52)
[2018-12-12] MEDS: POTASSIUM CHLORIDE 10 MEQ CAPSULE.ER PO SCH ×2 (11:25→17:52)
[2018-12-12] MEDS: METOPROLOL SUCCINATE 50 MG TAB.SR.24H PO SCH ×2 (11:25→22:52)
[2018-12-12] MEDS: FINASTERIDE 5 MG TABLET PO SCH (11:25)
[2018-12-12] MEDS: DILTIAZEM HCL 180 MG CAPSULE.CR PO SCH (11:26)
[2018-12-12] MEDS: FUROSEMIDE 40 MG TABLET PO SCH (11:26)
[2018-12-12] MEDS: DOCUSATE SODIUM 100 MG CAPSULE PO SCH ×2 (11:26→17:52)
--- NOTE | 2018-12-12 14:36 | PDOC DISCHARGE SUMMARY ---
General - Admit/Disc Date/PCP Admission Date/Primary Care Provider: 12/02/18 23:21 Discharge Date: 12/12/18 - Discharge Diagnosis (1) Cellulitis and abscess of leg Is this a current diagnosis for this admission?: Yes Summary: Resolved. Patient was found to have right lower leg erythema, serous drainage, and tenderness to touch. He is noted to have evidence of chronic peripheral vascular changes. Blood cultures negative No history of MRSA. Completed full course of antibiotics. (2) CHF (congestive heart failure) Is this a current diagnosis for this admission?: Yes Summary: Acute on chronic diastolic CHF. Acute exacerbation has resolved. Echocardiogram 2018 revealed LVEF 55% with mildly ventricular diastolic dysfunction. Dobutamine drip has been discontinued. Repeat chest x-ray demonstrated slightly worsened pulmonary edema. Received IV furosemide x 1 The patient was admitted to [facility] on continuous cardiac telemetry. Cardiology was consulted for medication management. Did initially require a dobutamine drip which has been discontinued for the previous several days. He is discharged on diltiazem, metoprolol, and furosemide. Recommend continued low-sodium diet, though may liberalize now that patient is on hospice services. (3) Acute and chronic respiratory failure with hypoxia Is this a current diagnosis for this admission?: Yes Summary: Acute exacerbation has resolved; secondary to pulmonary edema and CHF exacerbation. Now maintaining saturations on baseline oxygen requirement. Patient does have chronic respiratory failure related to CHF requiring 4 L oxygen via nasal cannula. Repeat CXR dose show slightly worsened pulmonary edema; additional furosemide yesterday Continued air hunger 2/2 CHF; likely end stage disease at this time. Patient complains of continuous dyspnea and air hunger related to chronic fa ilure. Trial of low-dose oral morphine without relief of symptoms and, unfortunately, resulting in increased anxiety. Morphine was discontinued and oral Ativan attempted. Patient appears to be much more comfortable, breathing even and unlabored, with p.o. Ativan. Twice daily BuSpar has been added with improved anxiety symptoms. Patient and family members have elected to discharge to home with hospice services. The patient is discharged home in fair, but stable condition with home hospice services through [facility] He is provided prescriptions for twice daily BuSpar and as needed Ativan (4) CAD (coronary artery disease) Is this a current diagnosis for this admission?: Yes Summary: Patient denies chest pain. Troponins were elevated, although, this is secondary to acute respiratory failure with hypoxia, CHF exacerbation, and sepsis related to cellulitis. Cardiology was consulted; management per their expertise. Continue aspirin, statin, and antihypertensives as addressed elsewhere. (5) Chronic atrial fibrillation Is this a current diagnosis for this admission?: Yes Summary: Rate controlled on home dose diltiazem and metoprolol. Chronic anticoagulation clarified by Dr. Muhammad; discontinued recently due to multiple falls with hip and neck injury. Patient is not a safe candidate for chronic anticoagulation. Continue daily aspirin therapy. (6) Chronic kidney disease, stage 3 Is this a current diagnosis for this admission?: Yes Summary: Stable; at baseline. (7) Acute pulmonary edema Is this a current diagnosis for this admission?: Yes Summary: Resolved. Secondary to acute CHF exacerbation. Evaluation and management of CHF as above. (8) Elevated troponin I level Is this a current diagnosis for this admission?: Yes Summary: Patient does have a history of MS s/p 3 stents. He remains chest pain-free. Troponins likely elevated secondary to acute respiratory failure with hypoxia, CHF exacerbation, and sepsis. Trended down. Cardiology was consulted. (9) Constipated Is this a current diagnosis for this admission?: Yes Summary: Resolved. DulcoLax suppository and Soap suds enema x1 yesterday Continue daily Colace. (10) Anticoagulant long-term use Is this a current diagnosis for this admission?: Yes Summary: Discontinued due to fall risk. (11) Sepsis Is this a current diagnosis for this admission?: Yes Summary: Resolved; patient now afebrile x48 hours, normal WBCs, maintaining adequate blood pressures, vital signs otherwise stable. Secondary to lower extremity cellulitis. Chest x-ray is clear. Urinalysis is negative. Blood and urine cultures are negative (12) Acute respiratory failure with hypoxia Is this a current diagnosis for this admission?: Yes Summary: As above. - Additional Information Resuscitation Status: Do Not Resuscitate Discharge Diet: Cardiac Discharge Activity: Activity As Tolerated, Balance Activity w/Rest, Weigh Daily Prescriptions: Docusate Sodium [Colace 100 mg Capsule] 100 mg PO BID #60 capsule Pantoprazole Sodium [Protonix [address] Tablet] 20 mg PO Q6AM #30 tablet. Temazepam [Restoril 7.5 mg Capsule] 7.5 mg PO HSP PRN #14 capsule PRN Reason: Home Medications: Diltiazem HCl [Diltiazem 24Hr ER (Cd)] 240 mg PO DAILY 12/04/18 Finasteride [Proscar 5 mg Tablet] 5 mg PO DAILY 12/04/18 Furosemide [Lasix 40 mg Tablet] 40 mg PO DAILY 12/04/18 Lovastatin [Mevacor] 20 mg PO QHS 12/04/18 Metoprolol Succinate [Toprol XL 100 mg Tablet] 100 mg PO DAILY 12/04/18 Potassium Chloride [Klor-Con M10] 10 meq PO BID 12/04/18 Acetaminophen [Tylenol 325 mg Tablet] 650 mg PO Q6HP PRN tablet 12/08/18 Docusate Sodium [Colace 100 mg Capsule] 100 mg PO BID #60 capsule 12/08/18 Finasteride [Proscar 5 mg Tablet] 5 mg PO DAILY tablet 12/08/18 Pantoprazole Sodium [Protonix [address] Tablet] 20 mg PO Q6AM #30 tablet. 12/08/18 Temazepam [Restoril 7.5 mg Capsule] 7.5 mg PO HSP PRN #14 capsule 12/08/18 Buspirone HCl [Buspar 10 mg Tablet] 5 mg PO ASDIR PRN #90 tablet 12/12/18 Lorazepam [Ativan 0.5 mg Tablet] 0.5 mg PO Q4HP PRN #20 tablet 12/12/18 History of Present Illness History of Present Illness: Per H&P by Dr. Almeida: ESTELA CRUZ is a 83 year old male who presented to the emergency room with a one-week history of dyspnea. He admits to having mild dyspnea primarily occurring only with exertion for the last week then suddenly developing moderate to severe dyspnea a short time before his emergency arrival. The increased level of dyspnea has been constant since onset just prior to arrival, worsened by exertion and accompanied by a nonproductive cough. He denies other associated or accompanying signs and symptoms. He admits prior similar episodes with congestive heart failure and has not identified any additional aggravating or ameliorating factors for his dyspnea. In the emergency room he was found to have bilateral pleural effusions and acute pulmonary edema. He was treated with diuretics and BiPAP showing a good response. Patient's BNP was noted to be markedly elevated at greater than 32,000. He was subsequently admitted to the hospital for further evaluation and treatment. Physical Exam Vital Signs: Temp Pulse Resp BP Pulse Ox 97.4 F 85 17 154/85 H 93 12/12/18 07:52 12/12/18 07:52 12/12/18 07:52 12/12/18 07:52 12/12/18 07:52 Intake & Output 12/11/18 12/12/18 12/13/18 06:59 06:59 06:59 Intake Total 910 600 Output Total 425 275 Balance 485 325 Weight 63 kg 62.9 kg General appearance: PRESENT: no acute distress, cooperative - Pleasant, thin, well-developed, well-nourished Head exam: PRESENT: atraumatic, normocephalic Eye exam: PRESENT: conjunctiva pink, EOMI, PERRLA. ABSENT: scleral icterus Ear exam: PRESENT: normal external ear exam Mouth exam: PRESENT: moist, tongue midline Neck exam: ABSENT: carotid bruit, JVD, lymphadenopathy, thyromegaly Respiratory exam: PRESENT: decreased breath sounds, symmetrical, tachypnea - Shallow, unlabored, other - supplemental oxygen by nasal cannula. ABSENT: rales, rhonchi, wheezes Cardiovascular exam: PRESENT: RRR, +S1, +S2. ABSENT: diastolic murmur, rubs, systolic murmur Pulses: PRESENT: normal dorsalis pedis pul Vascular exam: PRESENT: normal capillary refill GI/Abdominal exam: PRESENT: normal bowel sounds, soft. ABSENT: distended, guarding, mass, organolmegaly, rebound, tenderness Rectal exam: PRESENT: deferred Gentrourinary exam: PRESENT: indwelling catheter - Hematuria Extremities exam: PRESENT: full ROM. ABSENT: calf tenderness, clubbing, pedal edema Neurological exam: PRESENT: alert, awake, oriented to person, oriented to place, oriented to time, oriented to situation, CN II-XII grossly intact. ABSENT: motor sensory deficit Psychiatric exam: PRESENT: appropriate affect, normal mood. ABSENT: homicidal ideation, suicidal ideation Skin exam: PRESENT: dry, intact, warm. ABSENT: cyanosis, rash Results Laboratory Results: 12/11/18 04:18 12/11/18 04:18 12/02/18 12/02/18 12/02/18 18:31 18:31 18:31 Creatine Kinase 41 L CK-MB (CK-2) 1.21 Troponin I 0.023 NT-Pro-B Natriuret Pep [id number] H 12/03/18 12/03/18 12/03/18 01:00 01:00 06:51 Creatine Kinase 33 L 36 L CK-MB (CK-2) 1.08 Troponin I 0.022 NT-Pro-B Natriuret Pep 12/03/18 12/03/18 12/03/18 06:51 12:44 12:44 Creatine Kinase 41 L CK-MB (CK-2) 1.29 1.50 Troponin I 0.027 0.026 NT-Pro-B Natriuret Pep 12/03/18 12/04/18 12/04/18 12:44 15:00 15:00 Creatine Kinase 52 L CK-MB (CK-2) 1.92 Troponin I 0.071 NT-Pro-B Natriuret Pep [id number] H 12/04/18 12/04/18 12/05/18 20:45 20:45 02:50 Creatine Kinase 51 L 61 CK-MB (CK-2) 0.85 Troponin I 0.143 NT-Pro-B Natriuret Pep 12/05/18 02:50 Creatine Kinase CK-MB (CK-2) 1.33 Troponin I 0.105 NT-Pro-B Natriuret Pep Impressions: Lung Scan-VQ NM 12/05/18 00:00 IMPRESSION: Limited ventilation examination. No significant perfusion defect. Findings are consistent with radiographic findings of pleural effusions and cardiomegaly. Low probability examination for pulmonary embolism by modified PIOPED criteria. Chest X-Ray 12/08/18 00:00 IMPRESSION: Cardiomegaly and increased bilateral pleural effusions. Qualifiers - * PATIENT BEING DISCHARGED WITH ANY OF THE FOLLOWING DIAGNOSIS: No Acute Heart Failure - Is this a Heart Failure Patient?: Yes Documentation of LVEF assessment?: Yes LVEF < 40%?: No- if no continue to question #3 3. Anticoagulant therapy for permanect/persistent/paraoxysmal Afib or Aflutter: No, document contraindications Reason(s) not discharged on anticoagulant therapy for permanect/persistent/paraoxysmal Afib or Aflutter: Risk for bleeding, Repeated falls/unsteady gait Plan Discharge Plan: The patient is discharged home with hospice services. Time Spent: Greater than 30 Minutes
[2018-12-12] MEDS: ACETAMINOPHEN 325 MG TABLET PO PRN (22:52)
[2018-12-12] MEDS: ATORVASTATIN CALCIUM 10 MG TABLET PO SCH (22:52)
[2018-12-13] MEDS: PANTOPRAZOLE SODIUM 20 MG TABLET.DR PO SCH (06:45)
[2018-12-13] MEDS: METOPROLOL SUCCINATE 50 MG TAB.SR.24H PO SCH (09:59)
[2018-12-13] MEDS: FUROSEMIDE 40 MG TABLET PO SCH (09:59)
[2018-12-13] MEDS: POTASSIUM CHLORIDE 10 MEQ CAPSULE.ER PO SCH (09:59)
[2018-12-13] MEDS: DILTIAZEM HCL 180 MG CAPSULE.CR PO SCH (09:59)
[2018-12-13] MEDS: DOCUSATE SODIUM 100 MG CAPSULE PO SCH (09:59)
[2018-12-13] MEDS: FINASTERIDE 5 MG TABLET PO SCH (09:59)
[2018-12-13] MEDS: BUSPIRONE HCL 10 MG TABLET PO SCH (09:59)
[2018-12-13] MEDS: HYDRALAZINE HCL INJ/PF 20 MG/1 ML SDV IV PRN (10:19)
[2018-12-13 12:56] VITALS: BP 149/60
== END 2018-12-13 13:35 | disposition hospice, home (50) | DRG 291 ==
LOC: ER 17:23 → EH 23:21 → 4S 12-03 01:25 → 3W 12-04 16:54 → 4W 12-07 19:00 → 3S 12-09 18:38 → 3N 12-10 18:20
PROVIDERS: ADMIT Emergency Medicine; ATTEND Emergency Medicine
PROC: 5A09557 Assistance with Respiratory Ventilation, Greater than 96 Consecutive Hours, Continuous Positive Airway Pressure (ICD-10-PCS; principal; 2018-12-02)
DX: I13.0 Hypertensive heart and chronic kidney disease with heart failure and stage 1 through stage 4 chronic kidney disease, or unspecified chronic kidney disease (principal); I50.33 Acute on chronic diastolic (congestive) heart failure; J96.21 Acute and chronic respiratory failure with hypoxia; A41.9 Sepsis, unspecified organism; L03.115 Cellulitis of right lower limb; N18.3 Chronic kidney disease, stage 3 (moderate); I25.10 Atherosclerotic heart disease of native coronary artery without angina pectoris; I87.8 Other specified disorders of veins; I48.2 Chronic atrial fibrillation; D63.1 Anemia in chronic kidney disease; N40.0 Benign prostatic hyperplasia without lower urinary tract symptoms; Z83.6 Family history of other diseases of the respiratory system; Z79.02 Long term (current) use of antithrombotics/antiplatelets; Z95.5 Presence of coronary angioplasty implant and graft; K59.00 Constipation, unspecified; Z66 Do not resuscitate; I42.9 Cardiomyopathy, unspecified; R79.89 Other specified abnormal findings of blood chemistry
CPT/HCPCS: 36415; 36600; 71045; 78582; 80048; 80053; 80061; 81001; 82550; 82553; 82803; 82962; 83605; 83735; 83880; 84439; 84443; 84481; 84484; 85025; 85027; 85379; 85610; 85730; 87040; 87086; 93005; 93010; 94660; 96374; 99285; A9540; A9567; J0360; J0690; J0696; J1160; J1265; J1644; J1940; J2060; J2185; J2270; J3370; J3490; J7060; J7120; Q9969